=== PATIENT | male | born 1950 | race Caucasian/White ===

== ENCOUNTER → 2016-05-14 | Outpatient (CLI) | payer BC ==
--- NOTE | 2016-05-14 20:21 | CONS ---
DATE: 05/14/2016 CONSULTATION/NEW PATIENT EVALUATION HISTORY OF PRESENT ILLNESS/SLEEP-WAKE EVALUATION: A 65-year-old gentleman who has been evaluated in the sleep center for obstructive sleep apnea/hypopnea syndrome. Patient had been diagnosed with obstructive sleep apnea about 10 years ago. At that time, he was started on treatment with BiPAP, but was not able to use equipment secondary to difficulties to tolerate the pressure and discomfort with the mask. He stopped using equipment very quickly after starting it. SLEEP SCHEDULE: At the present time, his sleep schedule is usually from 1:00 a.m. to 2:00 a.m. until 10:00 a.m. or 11:00 a.m. FALLING ASLEEP: Sometimes he has problems falling asleep. No TV in bedroom, though. DURING SLEEP: He sleeps usually on the side position. During the sleep, he has loud snoring, episodes of heartburn, restless legs. He wakes up from sleep up to 3 times with nocturia. Several times he strikes his forehead with his right hand. DURING THE DAY/WAKE STATE: During the day, he may take naps up to 1 time at 6:00 p.m. or 7:00 a.m. [place] Sleepiness Scale is significantly increased to 16. PAST MEDICAL HISTORY: Positive for recently diagnosed with multiple sclerosis, hypertension, allergy, hyperlipidemia, acid reflux, depression, anxiety and peripheral neuropathy. PAST SURGICAL HISTORY: Tonsillectomy, back surgery, uvulectomy and surgery on soft palate, surgery for nasal septum deviation. MEDICATIONS: 1. Aspirin. 2. Benadryl. 3. Cyclobenzaprine. 4. Flomax. 5. Lipitor. 6. Lisinopril. 7. Lunesta. 8. [place]. 9. Omeprazole. 10. Senna. 11. Xanax. SOCIAL HISTORY: Positive for smoking less than 1 pack a day for about 50 years. Patient continues smoking. Alcohol consumption rarely. REVIEW OF SYSTEMS: Awakenings from sleep, sleepiness, snoring. FAMILY HISTORY: Hypertension, heart problems, hyperlipidemia, arthritis, sinus headaches, bronchitis, sleep apnea, snoring, pneumonia, headaches, cancer, insomnia, acid reflux, ulcers, anemia, restless legs. PHYSICAL EXAMINATION: GENERAL: A 65-year-old gentleman without distress. VITAL SIGNS: BP 123/71, HR 76, RR 16. Height 5 feet 9 inches. Weight 156. BMI 23.0. Neck 15 inches in circumference. Temperature 97.8. Oxygen saturation at room air 99%. HEENT: PERRADALID, EOMI. Evaluation of oropharynx showed tongue protrudes midline, white pillars. No uvula. Moderately low position of soft palate. Slight restriction of nasal breathing. NECK: Supple. No JVD. Thyroid is not palpable. LUNGS: Clear to percussion and to auscultation. Good air exchange. No wheezing or rhonchi. HEART: S1, S2 regular. No murmurs, gallops or rubs. ABDOMEN: Soft and nontender. Bowel sounds are present. No organomegaly appreciated. EXTREMITIES: No clubbing or cyanosis. ETL DATA ARCHITECT: Awake, alert, and oriented x3. Cranial nerves 2 to 7 intact. There is no fasciculation or atrophy noted. Feeling of numbness when I am touching hip areas on the legs. Slight weakness in hands bilaterally. IMPRESSION: 1. Snoring, small oropharyngeal air space, history of obstructive sleep apnea-hypopnea syndrome in the past, sleepiness, obstructive sleep apnea-hypopnea syndrome. 2. Normal body mass index at the present time. Patient lost around 25 pounds since 10 years ago was evaluated in the sleep center. 3. Multiple sclerosis recently diagnosed. 4. Hypertension. 5. Hyperlipidemia. 6. Allergies. 7. Acid reflux. 8. Depression. 9. Anxiety. 10. Peripheral neuropathy. 11. Status post tonsillectomy. 12. Status post uvulectomy and surgery on the soft palate. 13. Status post nasal surgery for nasal septum deviation. 14. Status post back surgery. 15. Patient is a smoker for less than 50 pack years, continues to smoke. 16. Some episodes of hitting his head with his right arm, possibly rapid eye movement sleep behavioral disorder. 17. Differential diagnoses include sleepiness secondary to hypersomnia because narcolepsy could be secondary to multiple sclerosis lesion. PLAN: 1. Polysomnography for evaluation of patient's breathing during sleep, also to check for possible movements during sleep to rule out REM sleep behavioral disorder. 2. CPAP/BiPAP titration if sleep study confirms obstructive sleep apnea-hypopnea syndrome. 3. Preferable position during sleep on the side. 4. No driving if patient feels any sleepiness. Patient is aware of civil and criminal liability for unsafe driving. 5. I will see patient for follow-up visit to explain results of the testing and following plan. 6. Patient could be a candidate for multiple sleep latency test for objective evaluation of his symptoms of excessive daytime sleepiness. Sincerely, Jeferson Sherwood MD, PhD, FAASM. Diplomat of [employer], Sleep Medicine Board by [employer] Office Employee of [facility] [place]
== END | disposition home or self-care (01) ==
LOC: SLEEP 15:47
PROVIDERS: ATTEND Internal Medicine
DX: G47.33 Obstructive sleep apnea (adult) (pediatric) (principal); G35 Multiple sclerosis; I10 Essential (primary) hypertension; E78.5 Hyperlipidemia, unspecified; K21.9 Gastro-esophageal reflux disease without esophagitis; F32.9 Major depressive disorder, single episode, unspecified; F41.9 Anxiety disorder, unspecified; G47.10 Hypersomnia, unspecified; G62.9 Polyneuropathy, unspecified; T78.40XA Allergy, unspecified, initial encounter; F17.200 Nicotine dependence, unspecified, uncomplicated; Z79.82 Long term (current) use of aspirin; Z79.899 Other long term (current) drug therapy
CPT/HCPCS: 99211

== ENCOUNTER → 2016-10-08 | Outpatient (CLI) | payer BC ==
--- NOTE | 2016-10-15 11:38 | PN ---
DATE OF SERVICE: 10/08/2016 A 66-year-old gentleman who has been followed in the Sleep Center for treatment of obstructive sleep apnea-hypopnea syndrome. Recently patient had diagnostic sleep study and CPAP with BiPAP titration. I discussed results of the sleep studies with patient in detail. He has severe obstructive sleep apnea-hypopnea syndrome with apnea-hypopnea index 30.8 and severe periodic limb movements during both sleep studies. During diagnostic sleep study it was 57.7 per hour and during titration of 118.5 per hour. Oxygen desaturated to 84%. Patient was started on treatment with Auto PAP with a pressure range of 5 to 15 cm of water. Patient brought his new machine with him and I checked it. Average pressure 11.7 cm of water. Usage of 30 out 30 nights for more than 4 hours. Average 7.9 hours per night. Apnea-hypopnea index in normal range 4.4. Patient continued to have symptoms of some sleepiness. [place] sleepiness scale is 14. Some numbness in low leg. MEDICATIONS: Lunesta, Flexeril, Cyclobenzaprine, Flomax, Lipitor, lisinopril, [place], omeprazole, Senna, Xanax, Motrin. During physical exam 66-year-old gentleman without distress. BP 119/67, HR 79, RR 16, height 69, weight 155.2, BMI 22.5, temperature 97.9, oxygen saturation at room air 99% at room air. Some numbness in the low leg. ( ) IMPRESSION: 1. Obstructive sleep apnea-hypopnea syndrome in the severe range, mostly on control in Auto PAP. Average pressure 11.7. Patient demonstrated 100% compliance with treatment. 2. Periodic limb movements with significant range have been documented. 3. Hypertension. 4. Multiple sclerosis. 5. Acid reflux. 6. Depression. 7. Anxiety. 8. Peripheral neuropathy. 9. Allergies. 10. Status post surgical treatment of nasal septum deviation. 11. Status post UPP. 12. Status post back surgery. 13. Patient is a smoker for 50-pack years. Continue smoking. PLAN: 1. Continue treatment with Auto PAP every night for the whole night. 2. Will consider treatment with dopamine agonist for periodic limb movements. 3. Sleep hygiene with regular time in bed for at least 8 hours. 4. No driving if feeling any sleepiness. [facility]
== END | disposition home or self-care (01) ==
LOC: SLEEP 13:13
PROVIDERS: ATTEND Internal Medicine
DX: G47.33 Obstructive sleep apnea (adult) (pediatric) (principal); G35 Multiple sclerosis; G47.61 Periodic limb movement disorder; I10 Essential (primary) hypertension; K21.9 Gastro-esophageal reflux disease without esophagitis; F32.9 Major depressive disorder, single episode, unspecified; F41.9 Anxiety disorder, unspecified; G62.9 Polyneuropathy, unspecified; T78.40XA Allergy, unspecified, initial encounter

== ENCOUNTER → 2017-03-03 | Outpatient (CLI) | payer BC ==
[2017-03-03 13:50] LABS: Glucose,CSF 65 mg/dL (40-70)
[2017-03-03 15:29] LABS: Appearance,CSF Clear
[2017-03-03 15:30] LABS: Red Blood Cell, CSF Crenated 80 %; Red Blood Cell, CSF Fresh 20 %
[2017-03-08 14:05] LABS: Immunoglobulin G 761 mg/dL (700 - 1600)
== END | disposition home or self-care (01) ==
LOC: LABWHC1 12:22
PROVIDERS: ATTEND Psychiatry & Neurology Neurology
DX: G35 Multiple sclerosis (principal)
CPT/HCPCS: 36415; 82040; 82042; 82784; 82945; 83916; 84157; 87070; 87205; 89050

== ENCOUNTER → 2017-10-07 | Outpatient (CLI) | payer BC, MEDICARE ==
--- NOTE | 2017-10-07 16:15 | PN ---
PROGRESS NOTE DATE OF SERVICE: 10/07/2017 57-year-old gentleman who has been followed in the Sleep Center for treatment of obstructive sleep apnea-hypopnea syndrome. Patient has successfully continued to use his CPAP equipment every night without significant problems. No snoring with the machine. [place] Sleepiness Scale slightly increased to 12. The patient tired today after trip with kind of excursion to [place]. I checked his CPAP unit. CPAP pressure is on automatic regimen 5-15 cm of water. Pressure is 12 cm of water. Leak is 6 L/minute which is perfect. Apnea-hypopnea index 5.3, which is borderline. Total apnea index 3.8, central apnea index 1.4. MEDICATIONS: Lunesta, Flexeril, Cyclobenzaprine, Flomax, Lipitor, [place], omeprazole, Senna, Xanax, Motrin. PHYSICAL EXAM: Patient in no distress. BP 130/72, HR 84, RR 16, height 5 feet 8-1/2 inches, weight 146.8, BMI 21.8, temperature 97.9. Oxygen saturation on room air 97%. HEENT: Oropharynx low position of soft palate. Neck Supple, no JVD. Thyroid is not palpable. LUNGS Clear to percussion and to auscultation. Good air exchange. Lower part on the right lung, few wheezes. HEART S1, S2 regular. No murmurs, gallops, or rubs. ABDOMEN Soft and nontender. Bowel sounds are present. No organomegaly appreciated. EXTREMITIES No clubbing or cyanosis. CHAIN SPLITTER Awake, alert, and oriented X3. Cranial nerves 2 to 7 intact. There is no fasciculation or atrophy. noted. No focal deficits observed. IMPRESSION: 1. Obstructive sleep apnea-hypopnea syndrome on control with CPAP. The patient demonstrated great compliance with treatment benefitting from treatment. 2. History of hypertension. 3. Smoker for more than 50 pack years. Few wheezes in the lungs, possible chronic obstructive pulmonary disease. 4. Hypertension. 5. History of multiple sclerosis. 6. History of peripheral neuropathy. 7. Anxiety. 8. Allergy. 9. Status post surgical treatment for nasal septum deviation. 10.Status post uvulopalatopharyngoplasty. 11.Status post back surgery. PLAN: 1. Continue treatment with CPAP every night. 2. Sleep hygiene with regular time bed for at least 8 hours. 3. No driving if feeling sleepiness. 4. Prescription for all necessary CPAP supplies including mask, tube, filters. 5. I have I talked to the patient about necessity to think about stop smoking. Thank you very much for allowing me to participate in management of your patient. Sincerely, Jeferson Sherwood MD, PhD, FAASM Diplomat of [employer] [employer] [employer] Bsw of [facility] [place] MMODL / [place]: [id number] /
== END | disposition home or self-care (01) ==
LOC: SLEEP 13:35
PROVIDERS: ATTEND Internal Medicine
DX: G47.33 Obstructive sleep apnea (adult) (pediatric) (principal); I10 Essential (primary) hypertension; F41.9 Anxiety disorder, unspecified; T78.40XA Allergy, unspecified, initial encounter; F17.200 Nicotine dependence, unspecified, uncomplicated; Z86.69 Personal history of other diseases of the nervous system and sense organs; Z79.899 Other long term (current) drug therapy; Z79.891 Long term (current) use of opiate analgesic; Z79.1 Long term (current) use of non-steroidal anti-inflammatories (NSAID); Z99.89 Dependence on other enabling machines and devices; Z98.890 Other specified postprocedural states

== ENCOUNTER → 2018-11-10 | Outpatient (CLI) | payer BC, MEDICARE ==
--- NOTE | 2018-11-10 16:30 | PN ---
PROGRESS NOTE DATE OF SERVICE: 11/10/2018 This patient is a 68-year-old gentleman who has been followed in Sleep Center for treatment of obstructive sleep apnea-hypopnea syndrome. The patient successfully continues to use his CPAP equipment every night for the whole night without significant problems, except once he found that his machine did not correctly assess the time when used it. He is getting all CPAP supplies on time without problems. [place] Sleepiness Scale today is 10. I checked his CPAP unit. Range of the pressure is from 5 to 15 with average pressure 12 cm of water. Usage is 100% of the time, 30/30 nights for more than 4 hours, with average usage 8.4 hours per night. Leak is 0 L/minute. Apnea-hypopnea index is 4.6, which is within normal range, for the last month. For the last year, leak was also 0 L/minute and apnea-hypopnea index 5.9, which is acceptable. MEDICATIONS: 1. Lunesta. 2. Flexeril. 3. Cyclobenzaprine. 4. Flomax. 5. Lipitor. 6. [place]. 7. Omeprazole. 8. Senna. 9. Xanax. 10.Motrin. PHYSICAL EXAMINATION: GENERAL: A pleasant patient in no distress. VITAL SIGNS: BP 137/72, HR 90, RR 16, height 5 feet 8-1/2 inches, weight 145 pounds, which is about 2 pounds less than during the last visit. Body mass index 21.8. Temperature 97.9. Oxygen saturation at room air 97%. HEENT: PERRLA, EOMI. Evaluation of oropharynx showed tongue protrudes midline. Low position of soft palate. NECK: Supple. No JVD. Thyroid is not palpable. Neck measures 14-1/2 inches in circumference. LUNGS: Clear to percussion and to auscultation. Good air exchange. No wheezing or rhonchi. HEART: S1, S2 regular. No murmurs, gallops or rubs. ABDOMEN: Soft. No tenderness. EXTREMITIES: No clubbing or cyanosis. INTERIOR DESIGN PROFESSOR: Awake, alert, and oriented X3. Cranial nerves 2 to 7 intact. There is no fasciculation or atrophy. noted. No focal deficits observed. IMPRESSION: 1. Obstructive sleep apnea-hypopnea syndrome. The patient has demonstrated great compliance with treatment, benefitting from treatment. 2. Smoker for more than 50 pack/years. Continues to smoke. 3. History of multiple sclerosis. 4. Peripheral neuropathy. 5. History of anxiety. 6. History of allergies. 7. History of hypertension. Recently normal level of blood pressure. Not on any medications for hypertension anymore. 8. Status post UPPP. 9. Status post back surgery. 10.Status post surgical treatment of nasal septum deviation in the past. PLAN: 1. Patient will continue to use CPAP equipment every night for the whole night. 2. Prescriptions for all necessary CPAP supplies, including mask, tube, filters. 3. Sleep hygiene with regular time in bed for at least 7-1/2 to 8 hours. 4. No driving if feeling any sleepiness. 5. We will check how old the patient's CPAP unit is. We will consider replacing CPAP unit after 5 years of usage. 6. Follow-up visit in one year, or earlier if the patient has any problems. Thank you very much for allowing me to participate in the management of your patient. Sincerely, Jeferson Sherwood MD, PhD, FAASM Diplomat of [place] [employer] [place] [employer] [place] Counselor of [facility] [place] MMODL / IJN: [id number] /
== END | disposition home or self-care (01) ==

== ENCOUNTER → 2019-03-31 | Outpatient (CLI) | payer BC, MEDICARE ==
--- NOTE | 2019-04-02 15:45 | MR ---
EXAMINATION TYPE: MR thoracic spine wo/w con DATE OF EXAM: 03/31/2019 COMPARISON: NONE HISTORY: RECHECK FOR MS TECHNIQUE: Multiplanar, multisequence imaging of thoracic spine is performed without and with IV cont rast, patient injected with 7.5 cc of gadavist. Demyelinating disease protocol. FINDINGS: Spinal cord shows normal caliber and signal as it courses the thoracic spine. Vertebral b antonio heights are satisfactory. Coronal images show levoconvex scoliosis centered upper to mid thoracic spine. Sagittal images show exaggerated thoracic kyphosis with prominent upper levels. There is mild to moderate multilevel anterior spurring. Small hemangioma noted anterior-inferior T11 vertebra sagi ttal image 7. This space heights maintained. Posterior disc herniation is seen effacing the anterior thecal sac sagittal image 8 at T7-T8 level. No suspicious enhancement is present. Review of the axial images confirms right paracentral disc protrusion effacing anterolateral thecal s ac at T7-T8 along with tiny central disc protrusion effacing the anterior thecal sac at T9-T10 level confirm sagittal image 7. No additional disc herniations are evident. Spinal cord shows no abnormal s ignal or enhancement. Incidental 5 mm simple appearing thin-walled cyst posterior left kidney axial i mage 1 series 701. IMPRESSION: Scoliotic curvature and multilevel degenerative changes as detailed above. No evidence fo r demyelinating disease involvement in the thoracic spinal cord.
== END | disposition home or self-care (01) ==
LOC: RADMRIMAIN 16:12
PROVIDERS: ATTEND Psychiatry & Neurology Neurology
DX: M51.24 Other intervertebral disc displacement, thoracic region (principal); M41.84 Other forms of scoliosis, thoracic region; G35 Multiple sclerosis
CPT/HCPCS: 72157; A9585

== ENCOUNTER → 2019-04-03 | Outpatient (CLI) | payer BC, MEDICARE ==
--- NOTE | 2019-04-03 17:10 | MR ---
EXAMINATION TYPE: MR brain/cspine wo/w DATE OF EXAM: 04/03/2019 COMPARISON: Prior brain and cervical spine MRI dated 02/21/2018 HISTORY: multiple sclerosis TECHNIQUE: Multiplanar, multisequence images of the brain and brainstem, cervical spine is performed without and with IV contrast, utilizing 7.5 mL intravenous Gadavist . FINDINGS: Diffusion weighted images demonstrate no evidence of a recent infarct or other diffusion ab normality. There is no extra-axial fluid collection or significant interval change in white matter s ignal abnormality. The ventricular system and cisternal spaces are normal in size and appearance. T he brain volume is age appropriate. Midline structures demonstrate normal morphology. The craniocervical junction appears within normal limits. Post contrast images demonstrate no abnormal enhancement. The dural venous sinuses appear pa tent. The visualized sinuses are clear and the globes are intact. IMPRESSION: Extensive white matter signal changes are again noted as on prior. Cervical spine MRI: The cervical cord signal which is increased on T2-weighted sequences at C3 is aga in noted, no additional signal abnormalities identified within the cervical cord. Underlying degenera tive disc changes within the cervical spine are again seen. There is multilevel foraminal encroachmen t. No significant spinal stenosis. No abnormal enhancement following contrast menstruation. IMPRESSION: Stable cord plaque as described.
== END | disposition home or self-care (01) ==
LOC: RADMRIMAIN 14:19
PROVIDERS: ATTEND Psychiatry & Neurology Neurology
DX: G95.89 Other specified diseases of spinal cord (principal); R90.82 White matter disease, unspecified; G35 Multiple sclerosis
CPT/HCPCS: 70553; 72156; A9585

== ENCOUNTER → 2019-09-28 | Outpatient (CLI) | payer BC, MEDICARE ==
--- NOTE | 2019-09-28 11:54 | ECHOF ---
Referral Reason:R22.43 bilateral leg edema MEASUREMENTS -------- HEIGHT: 180.3 cm WEIGHT: 70.3 kg BP: IVSd: 0.9 cm (0.6 - 1.1) LVIDd: 4.0 cm (3.9 - 5.3) LVPWd: 0.9 cm (0.6 - 1.1) IVSs: 1.5 cm LVIDs: 1.8 cm LVPWs: 1.5 cm Ao Diam: 2.8 cm (2.0 - 3.7) AV Cusp: 2.0 cm (1.5 - 2.6) LA Diam: 3.1 cm (2.7 - 3.8) MV EXCURSION: 14.414 mm (> 18.000) MV EF SLOPE: 115 mm/s (70 - 150) EPSS: 0.7 cm MV E Gerry: 0.55 m/s MV DecT: 192 ms MV A Gerry: 1.02 m/s MV E/A Ratio: 0.54 RAP: 5.00 mmHg RVSP: 33.32 mmHg FINDINGS -------- Sinus rhythm. This was a technically good study. The left ventricular size is normal. There is mild concentric left ventricular hypertrophy. Overa ll left ventricular systolic function is normal with, an EF between 55 - 60 %. The right ventricle is normal in size. The left atrial size is normal. The right atrial size is normal. The aortic valve is trileaflet and appears structurally normal. The mitral valve is normal. Mild mitral regurgitation is present. The tricuspid valve appears structurally normal. Mild tricuspid regurgitation present. Right vent ricular systolic pressure is normal at < 35 mmHg. There is no pulmonic regurgitation present. The aortic root size is normal. Normal inferior vena cava with normal inspiratory collapse consistent with estimated right atrial pre ssure of 5 mmHg. There is no pericardial effusion. CONCLUSIONS -------- 1. Sinus rhythm. 2. This was a technically good study. 3. The left ventricular size is normal. 4. There is mild concentric left ventricular hypertrophy. 5. Overall left ventricular systolic function is normal with, an EF between 55 - 60 %. 6. The right ventricle is normal in size. 7. The left atrial size is normal. 8. The right atrial size is normal. 9. The aortic valve is trileaflet and appears structurally normal. 10. The mitral valve is normal. 11. Mild mitral regurgitation is present. 12. The tricuspid valve appears structurally normal. 13. Mild tricuspid regurgitation present. 14. Right ventricular systolic pressure is normal at < 35 mmHg. 15. There is no pulmonic regurgitation present. 16. The aortic root size is normal. 17. Normal inferior vena cava with normal inspiratory collapse consistent with estimated right atrial pressure of 5 mmHg. 18. There is no pericardial effusion. FILTER CLEANER: Paula Anders RDCS
== END | disposition home or self-care (01) ==
LOC: RADECHMAIN 11:31
PROVIDERS: ATTEND Internal Medicine
DX: I08.1 Rheumatic disorders of both mitral and tricuspid valves (principal)
CPT/HCPCS: 93306

== ENCOUNTER → 2020-03-23 | Outpatient (CLI) | payer BC, MEDICARE ==
--- NOTE | 2020-03-23 10:47 | MR ---
EXAMINATION TYPE: MR brain/cspine wo/w DATE OF EXAM: 03/23/2020 COMPARISON: 04/03/2019 HISTORY: MS CONTRAST: Performed utilizing 7 mL intravenous Gadavist gadolinium contrast. TECHNIQUE: Multiplanar, multisequence imaging of the brain is performed on a 3.0 Kelli magnet. Demye linating disease protocol with additional Sagittal Flair sequence is performed. Study is performed wi thin 24 hours of arrival to the hospital. FINDINGS: T2 White Matter Lesions Present : Yes Approximate Number of Lesions: Multiple scattered Locations Identified : Periventricular, centrum semiovale, subcortical, right cerebellar peduncle Reference lesions: 0.4 cm right cerebellar peduncle. Series 1301 image 9 0.9 x 1.6 x 1.7 cm. Left Frontal lobe centrum semiovale. Series 1301, image 21, series 1401, image 14 . 0.7 x 0.9 x 0.7 cm. Right centrum semiovale periventricular. Series 1301 image 22, series 1401 image 24. Enhancing Lesion(s) Present: No Change from Prior: Stable Diffusion-weighted imaging is performed. No abnormal hyperintensity is present to suggest an acute i ntracranial infarct or acute ischemic change. Ventricles and sulci are appropriate for the patient age. There are no abnormal extra-axial fluid collections. The ventricular system and cisternal spaces are normal in size and appearance. The brain volume is age appropriate. The craniocervical junction thelma ears within normal limits. The dural venous sinuses appear patent. No abnormal enhancement is present on post contrast images. . The visualized sinuses are clear. Visu alized orbits are unremarkable. IMPRESSION: 1. Extensive white matter plaques present similar to the prior year. Findings are compatible with mu ltiple sclerosis in proper clinical setting. EXAMINATION TYPE: MR brain/cspine wo/w DATE OF EXAM: 03/23/2020 COMPARISON: 04/03/2019 HISTORY: MS CONTRAST: Performed utilizing 7 mL intravenous Gadavist gadolinium contrast. TECHNIQUE: Multiplanar multiecho imaging on a 3.0 Kelli magnet is performed through the cervical spin e. FINDINGS: The craniovertebral junction is normal. Vertebral body alignment is normal. There is a 1.1 x 0.3 cm posterior spinal cord plaque posterior to the C3-4 level this was present pre viously. Some mild increased signal may be within the posterior spinal cord posterior to C6 level. Th is appears to been present previously. There is mild increased signal posterior to the dens on the T2 sagittal images. This measures 0.8 cm. These findings can be related to multiple sclerosis. C7-T1: No focal disc herniation or significant disc bulge is evident. No spinal canal stenosis or n eural foraminal stenosis is present. C6-7: Is a grade 1 spondylolisthesis of C7 anterior and T1. Minimal disc uncovering is present.. C5-6: Mild disc bulging is present with anterior thecal sac contact. There is loss of disc height thr ough this level. No spinal canal stenosis is present. C4-5: Minimal grade 1 spondylolisthesis is present. There is some central disc herniation extending p osterior to the C4 level. This appears to be central and subligamentous. Mild anterior thecal sac com pression is present. C3-4: Central disc bulging is present with mild anterior thecal sac compression. No AP spinal canal s tenosis is present.. C2-3: No focal disc herniation or significant disc bulge is evident. No spinal canal stenosis or tung ral foraminal stenosis is present. IMPRESSIONS: 1. Mild increased signal within the posterior spinal cord at the C3 level, C6 level and posterior to C2. Findings appear stable. Findings can be compatible with multiple sclerosis in the proper clinical setting.
== END | disposition home or self-care (01) ==
LOC: RADMRIMAIN 08:53
PROVIDERS: ATTEND Psychiatry & Neurology Neurology
DX: R90.82 White matter disease, unspecified (principal); R90.89 Other abnormal findings on diagnostic imaging of central nervous system; G35 Multiple sclerosis
CPT/HCPCS: 70553; 72156; A9585

== ENCOUNTER → 2020-09-12 | Outpatient (CLI) | payer BC, MEDICARE ==
--- NOTE | 2020-09-12 22:55 | SFUN ---
SLEEP CENTER FOLLOW UP NOTE DATE OF SERVICE: 09/12/2020 70-year-old gentleman have been followed in [facility] for treatment of obstructive sleep apnea and restless legs syndrome. Patient continued to use his CPAP equipment every night but recently has some problems related to the mask, leak from the mask. He is on treatment with Mirapex for restless leg symptoms and on the periodic limb movements and question about the sleep . I checked CPAP unit. Range of the pressure 5-15, average pressure 13.4. Usage is 30/30 nights for more than 4 hours, average 8.7 hours per night. Leak is 40 L/minute. Apnea- hypopnea index reading 14.4, which is high. Patient using Simplus medium size fullface mask. MEDICATIONS: Aspirin 325 mg once a day. Benadryl 25 mg once a day, cyclobenzaprine 10 mg once a day, tamsulosin 0.4 mg capsules extended release 1-2 capsules by mouth once a day, Lipitor 40 mg once a day, lisinopril 20 mg once a day. Lunesta 3 mg once a day at bedtime, [place] 7.5/325 mg tablets, omeprazole 20 mg capsules daily, released twice a day, Senna laxative 8.6 mg tablets twice a day, Xanax 0.6 mg once a day, Flexeril 10 mg once a day. Potassium supplement, fish oil. PHYSICAL EXAM: gentleman in no distress. VITAL SIGNS: BP 133/81, HR 80, RR 15, height 5 feet 9 inches, weight 148 pounds, temperature 97.3, oxygen saturation at room air 99%. Oropharynx low position of soft palate. HEENT: PERRLA, EOMI, evaluation of oropharynx showed tongue protrudes midline. NECK: Supple, no JVD. Thyroid is not palpable. LUNGS: Clear to percussion and to auscultation. Good air exchange. No wheezing or rhonchi. HEART: S1, S2 regular. No murmurs, gallops, or rubs. ABDOMEN: Soft and nontender. Bowel sounds are present. No organomegaly appreciated. EXTREMITIES: No clubbing or cyanosis. [employer] BRAKE WORKER: Awake, alert, and oriented X3. Cranial nerves 2 to 7 intact. There is no fasciculation or atrophy. noted. No focal deficits observed. IMPRESSION: 1. Obstructive sleep apnea-hypopnea syndrome. Patient demonstrated great compliance with treatment benefitting from treatment, but apnea-hypopnea index reading from the machine is above normal range, significant leak present. 2. History of multiple sclerosis. 3. Peripheral neuropathy. 4. History of anxiety. 5. History of allergies. 6. History of hypertension in the past. 7. Status post uvulopalatopharyngoplasty. 8. Status post back surgery. 9. Status post surgical treatment of nasal septum deviation in the past. PLAN: 1. We will try nasal pillow mask. I wrote a prescription for AirFit P10 medium-size nasal pillow mask. 2. Simplus fullface mask, medium size, was adjusted for proper fitting. 3. Patient will continue to use PAP equipment every night for the whole night. 4. Sleep hygiene with regular time in bed for at least 7-1/2 to 8 hours. 5. Precautions related to driving. No driving if feeling sleepiness. 6. I will maintain all necessary prescription for PAP supplies including mask, tube, filters. 7. Watching weight. 8. Follow-up visit in 4 months or earlier if patient has any problems. 9. Prescription for Mirapex 0.125 mg 1-2 tablets at bedtime. Thank you very much for allowing me to participate in management of your patient. Sincerely, Jeferson Sherwood MD, PhD, FAASM Diplomat of [place] [employer] [place] [employer] of [facility] [place] [id number] / FLORIDAN: [id number] /
== END ==
LOC: SLEEP 11:28
PROVIDERS: ATTEND Internal Medicine
DX: G47.33 Obstructive sleep apnea (adult) (pediatric) (principal); Z86.69 Personal history of other diseases of the nervous system and sense organs; G62.9 Polyneuropathy, unspecified; F41.9 Anxiety disorder, unspecified; F17.200 Nicotine dependence, unspecified, uncomplicated; T78.40XA Allergy, unspecified, initial encounter; I10 Essential (primary) hypertension; Z98.1 Arthrodesis status; Z98.890 Other specified postprocedural states; Z79.899 Other long term (current) drug therapy; Z91.09 Other allergy status, other than to drugs and biological substances
CPT/HCPCS: 99211

== ENCOUNTER 2022-01-23 12:48 | Inpatient (IN) | payer BC, MEDICARE ==
--- NOTE | 2022-01-23 13:26 | ED ---
General Adult HPI - General Chief complaint: Fall Stated complaint: Fall Time Seen by Provider: 01/23/22 13:08 Source: patient, EMS, RN notes reviewed Limitations: no limitations - History of Present Illness Initial comments: Patient is a pleasant 71-year-old male presenting to the emergency department with concerns with left leg weakness. Onset was noticed yesterday morning. Last known well was approximately 36-40 hours ago now. Patient is having difficulty with ambulation. No other area of weakness. No visual change. No confusion or speech changes. No facial weakness or arm weakness. No loss of sensation. No history of similar symptoms previously. Patient had an episode this morning that was not witnessed. Patient became unresponsive with family arriving shortly after hearing his snoring respirations. Patient was unresponsive for a couple of minutes. Following this patient was confused for approximately an hour. When EMS arrived patient was fully alert and fully responsive and oriented. Patient has no complaints at this time and feels normal except for left leg weakness continues. This has been steady since he first noticed it yesterday morning when he woke. - Related Data Home Medications Medication Instructions Recorded Confirmed Atorvastatin Calcium [Lipitor] 40 mg PO HS 11/30/15 01/23/22 Ibuprofen [Motrin] 800 mg PO BID PRN 11/30/15 01/23/22 Omeprazole [PriLOSEC] 20 mg PO BID 11/30/15 01/23/22 Cyclobenzaprine [Flexeril] 10 mg PO HS 01/23/22 01/23/22 DULoxetine HCL [Cymbalta] 60 mg PO DAILY 01/23/22 01/23/22 Fluticasone Nasal [place] [Flonase 2 spray EA NOSTRIL DAILY 01/23/22 01/23/22 Nasal [place]] Furosemide [Lasix] 20 mg PO DAILY 01/23/22 01/23/22 HYDROcodone/APAP 10-325MG [[place] 1 tab PO BID PRN 01/23/22 01/23/22 10-325] Loratadine [Claritin] 10 mg PO DAILY 01/23/22 01/23/22 Potassium Chloride ER [K-Dur 10] 10 meq PO DAILY 01/23/22 01/23/22 Tamsulosin HCl [Flomax] 0.8 mg PO DAILY 01/23/22 01/23/22 Umeclidinium Brm/Vilanterol Tr 1 puff INHALATION RT-DAILY 01/23/22 01/23/22 [Anoro Ellipta 62.5-25 Mcg INH] Allergies Allergy/AdvReac Type Severity Reaction Status Date / Time environmental Allergy Intermediate Cough Uncoded 03/19/20 12:47 Review of Systems ROS Statement: Those systems with pertinent positive or pertinent negative responses have been documented in the HPI. ROS Other: All systems not noted in ROS Statement are negative. Constitutional: Denies: fever Eyes: Denies: eye pain ENT: Denies: ear pain Respiratory: Denies: cough Cardiovascular: Denies: chest pain Endocrine: Denies: fatigue Gastrointestinal: Denies: abdominal pain Genitourinary: Denies: dysuria Musculoskeletal: Denies: back pain Skin: Denies: rash Neurological: Reports: as per HPI, weakness. Denies: headache Past Medical History Past Medical History: GERD/Reflux, Hyperlipidemia, Hypertension, Sleep Apnea/CPAP/BIPAP Additional Past Medical History / Comment(s): sleep apnea multiple sclerosis History of Any Multi-Drug Resistant Organisms: None Reported Past Surgical History: Appendectomy, Back Surgery, Bowel Resection, Coronary Bypass/CABG, Hernia Repair, Orthopedic Surgery, Tonsillectomy Past Anesthesia/Blood Transfusion Reactions: No Reported Reaction Past Psychological History: No Psychological Hx Reported Smoking Status: Current every day smoker General Exam Limitations: no limitations General appearance: alert, in no apparent distress Head exam: Present: atraumatic, normocephalic Eye exam: Present: normal appearance, PERRL, EOMI ENT exam: Present: normal oropharynx Neck exam: Present: normal inspection. Absent: tenderness Respiratory exam: Present: normal lung sounds bilaterally Cardiovascular Exam: Present: regular rate, normal rhythm GI/Abdominal exam: Present: soft. Absent: tenderness Extremities exam: Present: normal inspection. Absent: tenderness Neurological exam: Present: alert, oriented X3, CN II-XII intact Expanded Neurological exam: Present: protecting the airway Patient oriented to: Present: person, place, time Speech: Present: fluid speech Cranial nerves: EOM's Intact: Normal Sensory exam: Upper Extremity Light Touch: Normal, Lower Extremity Light Touch: Normal Motor strength exam: RUE: 5, LUE: 5, RLE: 5, LLE: 3 Eye Response: (4) open spontaneously Motor Response: (6) obeys commands Verbal Response: (5) oriented Psychiatric exam: Present: normal affect, normal mood Skin exam: Present: normal color Course Vital Signs 01/23/22 12:55 Temperature 99.8 F H Pulse Rate 90 Respiratory 16 Rate Blood Pressure 153/84 O2 Sat by Pulse 95 Oximetry - Reevaluation(s) Reevaluation #1: 01/23/22 15:46 Call received from radiologist with concern for small subdural and hematoma. I did discuss the case with Dr. Chapman, who will review the films and call back. 01/23/22 16:[address] Chapman who was unable to view the films. They're being loaded up into the stroke robot. 01/23/22 17:12 Case again discussed with Dr. Chapman who recommends repeat head CT at 4 hours. He states if no increase in bleeding patient to be admitted here. Call before considering transfer 01/23/22 20:03 CT scanning unchanged. Case discussed with practitioner Radha who did recheck O2 admitting physician and is okay with admission. EKG Findings - EKG Comments: EKG Findings:: Sinus rhythm rate 77. OH 168. QRS 103. QT 352. QTC 34. Normal axis. Borderline inferior Q waves. No acute ST change. Medical Decision Making - Lab Data Result diagrams: 01/23/22 12:58 01/23/22 12:58 Lab Results 01/23/22 01/23/22 01/23/22 Range/Units 12:58 12:58 12:58 WBC 13.0 H (3.8-10.6) k/uL RBC 4.31 (4.30-5.90) m/uL Hgb 14.2 (13.0-17.5) gm/dL Hct 40.6 (39.0-53.0) % MCV 94.2 (80.0-100.0) fL MCH 32.9 (25.0-35.0) pg MCHC 34.9 (31.0-37.0) g/dL RDW 12.7 (11.5-15.5) % Plt Count 174 (150-450) k/uL MPV 7.4 Neutrophils % 85 % Lymphocytes % 6 % Monocytes % 7 % Eosinophils % 1 % Basophils % 0 % Neutrophils # 11.1 H (1.3-7.7) k/uL Lymphocytes # 0.8 L (1.0-4.8) k/uL Monocytes # 0.9 (0-1.0) k/uL Eosinophils # 0.1 (0-0.7) k/uL Basophils # 0.1 (0-0.2) k/uL PT 10.1 (9.0-12.0) sec INR 0.9 (<1.2) APTT 25.0 (22.0-30.0) sec Sodium 129 L (137-145) mmol/L Potassium 3.7 (3.5-5.1) mmol/L Chloride 97 L (98-107) mmol/L Carbon Dioxide 24 (22-30) mmol/L Anion Gap 8 mmol/L BUN 11 (9-20) mg/dL Creatinine 0.61 L (0.66-1.25) mg/dL Est GFR (CKD-EPI)AfAm >90 (>60 ml/min/1.73 sqM) Est GFR (CKD-EPI)NonAf >90 (>60 ml/min/1.73 sqM) Glucose 115 H (74-99) mg/dL Calcium 10.4 H (8.4-10.2) mg/dL Magnesium 1.7 (1.6-2.3) mg/dL Total Bilirubin 1.0 (0.2-1.3) mg/dL AST 17 (17-59) U/L ALT 15 (4-49) U/L Alkaline Phosphatase 124 (38-126) U/L Troponin I (0.000-0.034) ng/mL Total Protein 6.3 (6.3-8.2) g/dL Albumin 3.8 (3.5-5.0) g/dL Coronavirus (PCR) (Not Detectd) Influenza Type A RNA (Not Detectd) Influenza Type B (PCR) (Not Detectd) 01/23/22 01/23/22 01/23/22 Range/Units 12:58 14:59 14:59 WBC (3.8-10.6) k/uL RBC (4.30-5.90) m/uL Hgb (13.0-17.5) gm/dL Hct (39.0-53.0) % MCV (80.0-100.0) fL MCH (25.0-35.0) pg MCHC (31.0-37.0) g/dL RDW (11.5-15.5) % Plt Count (150-450) k/uL MPV Neutrophils % % Lymphocytes % % Monocytes % % Eosinophils % % Basophils % % Neutrophils # (1.3-7.7) k/uL Lymphocytes # (1.0-4.8) k/uL Monocytes # (0-1.0) k/uL Eosinophils # (0-0.7) k/uL Basophils # (0-0.2) k/uL PT (9.0-12.0) sec INR (<1.2) APTT (22.0-30.0) sec Sodium (137-145) mmol/L Potassium (3.5-5.1) mmol/L Chloride (98-107) mmol/L Carbon Dioxide (22-30) mmol/L Anion Gap mmol/L BUN (9-20) mg/dL Creatinine (0.66-1.25) mg/dL Est GFR (CKD-EPI)AfAm (>60 ml/min/1.73 sqM) Est GFR (CKD-EPI)NonAf (>60 ml/min/1.73 sqM) Glucose (74-99) mg/dL Calcium (8.4-10.2) mg/dL Magnesium (1.6-2.3) mg/dL Total Bilirubin (0.2-1.3) mg/dL AST (17-59) U/L ALT (4-49) U/L Alkaline Phosphatase (38-126) U/L Troponin I <0.012 (0.000-0.034) ng/mL Total Protein (6.3-8.2) g/dL Albumin (3.5-5.0) g/dL Coronavirus (PCR) Not Detected (Not Detectd) Influenza Type A RNA Not Detected (Not Detectd) Influenza Type B (PCR) Not Detected (Not Detectd) - Radiology Data Radiology results: report reviewed (CT brain and CT angios shows 3 mm subdural right cerebral convexity. Trace subdural hematoma anterior falx. 5 mm cortical contusion anterior right frontal lobe.), image reviewed (Chest x-ray shows possible scarring. Possible interstitial change. Possible atelectasis.) Critical Care Time Critical Care Time: Yes Total Critical Care Time: 33 Disposition Clinical Impression: CVA (cerebral vascular accident), Unresponsive episode, Subdural hematoma, Cerebral contusion Disposition: ADMITTED IP TO THIS HOSP Is patient prescribed a controlled substance at d/c from ED?: No Referrals: Isrrael Arthur MD [Primary Care Provider] - 1-2 days Time of Disposition: 20:05
[2022-01-23 13:42] LABS: Basophils # (A) 0.1 k/uL (0-0.2); Basophils % (A) 0 %; Eosinophils # (A) 0.1 k/uL (0-0.7); Eosinophils % (A) 1 %; HCT 40.6 % (39.0-53.0); HGB 14.2 gm/dL (13.0-17.5); Lymphocytes # (A) 0.8 k/uL (1.0-4.8); Lymphocytes % (A) 6 %; MCH 32.9 pg (25.0-35.0); MCHC 34.9 g/dL (31.0-37.0); MCV 94.2 fL (80.0-100.0); Mean Platelet Volume 7.4; Monocytes # (A) 0.9 k/uL (0-1.0); Monocytes % (A) 7 %; Neutrophils # (A) 11.1 k/uL (1.3-7.7); Neutrophils % (A) 85 %; Platelet Count 174 k/uL (150-450); RBC 4.31 m/uL (4.30-5.90); RDW 12.7 % (11.5-15.5)
[2022-01-23 13:49] LABS: ALT 15 U/L (4-49); AST 17 U/L (17-59); African American GFR (CKD) >90 (>60 ml/min/1.73 sqM); Albumin 3.8 g/dL (3.5-5.0); Alkaline Phosphatase 124 U/L (38-126); Anion Gap 8 mmol/L; Blood Urea Nitrogen 11 mg/dL (9-20); Calcium 10.4 mg/dL (8.4-10.2); Carbon Dioxide 24 mmol/L (22-30); Chloride 97 mmol/L (98-107); Glucose 115 mg/dL (74-99); Magnesium 1.7 mg/dL (1.6-2.3); Non-African American GFR(CKD) >90 (>60 ml/min/1.73 sqM); Potassium 3.7 mmol/L (3.5-5.1); Sodium 129 mmol/L (137-145); Total Protein 6.3 g/dL (6.3-8.2)
[2022-01-23 14:09] LABS: INR 0.9 (<1.2); Prothrombin Time 10.1 sec (9.0-12.0)
--- NOTE | 2022-01-23 15:13 | CT ---
EXAMINATION TYPE: CT brain wo con DATE OF EXAM: 01/23/2022 COMPARISON: None HISTORY: Fall with LOC and confusion CT DLP: 1235.6 mGycm Automated exposure control for dose reduction was used. FINDINGS: The ventricles, basal cisterns and sulci over the convexities are within normal limits and there is n o mass effect or shift of midline structures. There is loss of the normal michaels-white differentiation and loss of the sulci over the convexities in the right temporal parietal region consistent with an acute infarct. MRI of the brain would be useful for further evaluation. There is a remote infarct infarct or ischemic demyelination in the left temporal parietal white matte r. There are remote lacunar infarcts in the right occipital lobe. There is no acute bleed or mass effect. The intraorbital contents appear normal and symmetric. The paranasal sinuses and mastoid air cells are well aerated. IMPRESSION: 1. SUSPECT ACUTE INFARCT IN THE RIGHT TEMPORAL PARIETAL REGION. MRI WOULD BE USEFUL FOR FURTHER EVALU ATION. 2. REMOTE LACUNAR INFARCTS IN THE RIGHT OCCIPITAL LOBE. 3. CHRONIC ISCHEMIC WHITE MATTER DEMYELINATION OR REMOTE WHITE MATTER INFARCT IN THE LEFT TEMPORAL PA RIETAL REGION. 4. NO ACUTE INTRA OR EXTRA-AXIAL HEMORRHAGE.
--- NOTE | 2022-01-23 15:45 | CT ---
EXAMINATION TYPE: CT angio head neck DATE OF EXAM: 01/23/2022 COMPARISON: Noncontrast CT same day HISTORY: 71 year old male Fall with LOC, confusion. Study had to be repeated due to faulty IV connect ion and leakage of contrast. TECHNIQUE: Contiguous axial scanning of the head and neck performed with IV Contrast, patient injecte d with 65 mL of Isovue 370. Delayed images through the kidneys were obtained. Coronal/sagittal recons tructions performed. CT DLP: 983.3 mGycm Automated exposure control for dose reduction was used. FINDINGS: Head: Dominant left vertebral artery. Both vertebral and basilar arteries are patent as is the remainder of the posterior circulation. Mild atherosclerotic calcifications throughout the carotid siphons without significant narrowing. The remainder of the anterior circulation is also patent. Review of the patient's noncontrast head CT performed earlier today shows a 3 mm subdural hematoma al jena the right lateral convexity, for example, axial image 45 and 34. Suspect trace subdural hematoma along the anterior falx as well, axial image 42. Tiny 5 mm cortical contusion right frontal lobe, axi al image 45. NECK: Conventional arch vessel branching anatomy. The right common carotid artery is patent. Mild atheroscl erotic calcification right carotid bulb with mild, less than 25% narrowing proximal right ICA by NASC ET criteria. Remainder of the right ICA is patent. Left common and left internal carotid arteries are widely patent. Visualized upper lungs shows underlying emphysema. There are septal lines as well that could reflect fluid overload state or interstitial scarring and can be correlated clinically. We note frothy secret ions filling the bronchus space Muriel on the right, partially visualized. IMPRESSION: HEAD: 1. TRACE 3 MM SUBDURAL HEMATOMA ALONG THE RIGHT CEREBRAL CONVEXITY. TRACE SUBDURAL HEMATOMA ALONG THE ANTERIOR FALX. 5 MM CORTICAL CONTUSION ANTERIOR RIGHT FRONTAL LOBE. These findings are noted from th e patient's noncontrast CT brain earlier today. Called and discussed with Dr. Klein in the ER at 3:35 PM. 2. No large vessel intracranial arterial occlusion, significant stenosis, or aneurysmal change. NECK: 3. No hemodynamically significant vertebral or carotid artery stenosis on either side. 4. Visualized lungs show COPD and either some fibrosis or septal lines from fluid overload state. Als o, note prominent secretions filling the bronchus basalis of the right lower lobe. This may place the patient at risk for aspiration.
--- NOTE | 2022-01-23 16:29 | XR ---
EXAMINATION TYPE: XR chest 1V DATE OF EXAM: 01/23/2022 COMPARISON: NONE HISTORY: Altered mental status, trauma TECHNIQUE: Single frontal view of the chest is obtained. FINDINGS: There is no focal air space opacity, pleural effusion, or pneumothorax seen. The cardiac silhouette size is within normal limits. Patient is rotated. There are overlying leads. Possible sub segmental basilar atelectatic change present on the right. Aorta is dense. There is spinal curvature. The osseous structures are intact. IMPRESSION: No acute process. There is likely some scarring, possibly interstitial changes within th e lungs, possible basilar atelectasis, follow-up is indicated
--- NOTE | 2022-01-23 19:22 | CT ---
EXAMINATION TYPE: CT brain wo con DATE OF EXAM: 01/23/2022 COMPARISON: Today HISTORY: Dr requesting four hour post scan re-evaluation of subdural hematoma CT DLP: 1261.4 mGycm Automated exposure control for dose reduction was used. Images of the brain obtained with no contrast. There is small linear area of high attenuation at the right temporal lobe convexity consistent with a cute subdural hemorrhage measuring up to 3 mm in thickness. This is not changed compared to exam 4 ho urs ago. No mass effect. There is some hypodensity in the white matter of both temporal parietal lobe s. No midline shift. Calvarium is intact. IMPRESSION: Small acute right-sided subdural acute hematoma without change. Chronic small vessel ischemia without change. No evidence of cerebral parenchymal hemorrhage.
[2022-01-23] MEDS: SODIUM CHLORIDE 0.9% 1,000 ML IV SCH (21:57)
--- NOTE | 2022-01-23 23:38 | P.HPIM ---
History of Present Illness H&P Date: 01/23/22 Chief Complaint: Fall Patient is a 71-year-old male with a known history of multiple sclerosis, hypertension, hyperlipidemia, obstructive sleep apnea, GERD and currently every day smoker, coronary disease with history of CABG and other multiple medical problems was brought to ER status post fall and unresponsiveness. To her patient was complaining of not able to move and leg weakness on the left side around 6:15 AM in the morning yesterday. Today morning patient's son heard a sound and went into see the patient was found on the floor. Patient was confused for about 30 to 45 minutes. No weakness or seizures. No bowel or bladder incontinence. EMS was called and by the time he became more alert and fully responsive and oriented. Currently patient is still having left leg weakness but able to move while in the bed. Denied any complaints of chest pain or shortness of breath. No fever no chills. No headache or dizziness or lightheadedness. CT head showed suspected acute infarct in the right temporal parietal lesion. MRI would be useful for future evaluation. Remote lacunar infarct in the right occipital lobe chronic ischemic white matter demyelination changes. No acute intra or extra-axial hemorrhage. CT angiogram head and neck showed trace 3 mm subdural hematoma along the right cerebral convexity. Trace subdural hematoma along the anterior falx 5 mm cortical contact fusion anterior right frontal lobe. Neck no hemodynamically significant vertebral or carotid artery stenosis. COPD and some fibrosis of cephalized from fluid overload state. Chest x-ray showed no acute process. There is likely some scarring Laboratory data showed WBC 13.0 hemoglobin 14.1 platelets 174 Sodium 129 potassium 3.7 chloride 97 BUN 11 creatinine 0.6 calcium 10.4 and liver enzymes are not elevated troponin x1 negative coronavirus PCR not detected. Review of Systems Constitutional: Patient denies any fever or chills . no Generalized weakness. Abdomen: Patient denied any nausea or vomiting or abd. pain Cardiovascular: Patient denies any chest pain or short of breath no palpitations. Respiratory: patient denied any cough . no sputum production. No shortness of breath Neurologic: Patient denied any numbness or tingling headache. Left leg weakness. Fall. Musculoskeletal: Patient denies any complaints of joint swelling or deformity. Skin: Negative Psychiatric: Negative Endocrine: No heat or cold intolerance. No recent weight gain. Genitourinary: No dysuria or hematuria. All other 14 point ROS negative except the above Past Medical History Past Medical History: GERD/Reflux, Hyperlipidemia, Hypertension, Sleep Apnea/CPAP/BIPAP Additional Past Medical History / Comment(s): sleep apnea multiple sclerosis History of Any Multi-Drug Resistant Organisms: None Reported Past Surgical History: Appendectomy, Back Surgery, Bowel Resection, Coronary Bypass/CABG, Hernia Repair, Orthopedic Surgery, Tonsillectomy Past Anesthesia/Blood Transfusion Reactions: No Reported Reaction Past Psychological History: No Psychological Hx Reported Smoking Status: Current every day smoker Medications and Allergies Home Medications Medication Instructions Recorded Confirmed Type Atorvastatin Calcium [Lipitor] 40 mg PO HS 11/30/15 01/23/22 History Ibuprofen [Motrin] 800 mg PO BID PRN 11/30/15 01/23/22 History Omeprazole [PriLOSEC] 20 mg PO BID 11/30/15 01/23/22 History Cyclobenzaprine [Flexeril] 10 mg PO HS 01/23/22 01/23/22 History DULoxetine HCL [Cymbalta] 60 mg PO DAILY 01/23/22 01/23/22 History Fluticasone Nasal [place] [Flonase 2 spray EA NOSTRIL DAILY 01/23/22 01/23/22 Hi story Nasal [place]] Furosemide [Lasix] 20 mg PO DAILY 01/23/22 01/23/22 History HYDROcodone/APAP 10-325MG [[place] 1 tab PO BID PRN 01/23/22 01/23/22 History 10-325] Loratadine [Claritin] 10 mg PO DAILY 01/23/22 01/23/22 History Potassium Chloride ER [K-Dur 10] 10 meq PO DAILY 01/23/22 01/23/22 History Tamsulosin HCl [Flomax] 0.8 mg PO DAILY 01/23/22 01/23/22 History Umeclidinium Brm/Vilanterol Tr 1 puff INHALATION RT-DAILY 01/23/22 01/23/22 History [Anoro Ellipta 62.5-25 Mcg INH] Allergies Allergy/AdvReac Type Severity Reaction Status Date / Time environmental Allergy Intermediate Cough Uncoded 03/19/20 12:47 Physical Exam Vitals: Vital Signs Temp Pulse Resp BP Pulse Ox 01/23/22 12:55 99.8 F H 90 16 153/84 95 Intake and Output 01/23/22 01/23/2222 06:59 14:59 22:59 Other: Weight 61.235 kg PHYSICAL EXAMINATION: Patient is lying in the bed comfortably, no acute distress, awake alert and oriented. Slow to respond.. HEENT: Normocephalic. Neck is supple. Pupils reactive. Nostrils clear. Oral cavity is moist. Neck reveals no JVD, carotid bruits, or thyromegaly. CHEST EXAMINATION: Trachea is central. Symmetrical expansion. Lung weinberg clear to auscultation and percussion. CARDIAC: Normal S1, S2 with no gallops. No murmurs ABDOMEN: Soft. Bowel sounds present. Nontender. No organomegaly. No abdominal bruits. Extremities: reveal no edema. No clubbing or cyanosis Neurologically awake, alert, oriented x3. Understand 4 out of 5 in left lower extremity. All other extremities 5 out of 5. Skin: No rash or skin lesions. Psychiatric: Coperative. Nonsuicidal, Musculoskeletal: No joint swelling or deformity. Results CBC & Chem 7: 01/23/22 12:58 01/23/22 12:58 Labs: Abnormal Lab Results - Last 24 Hours (Table) 01/23/22 01/23/22 Range/Units 12:58 12:58 WBC 13.0 H (3.8-10.6) k/uL Neutrophils # 11.1 H (1.3-7.7) k/uL Lymphocytes # 0.8 L (1.0-4.8) k/uL Sodium 129 L (137-145) mmol/L Chloride 97 L (98-107) mmol/L Creatinine 0.61 L (0.66-1.25) mg/dL Glucose 115 H (74-99) mg/dL Calcium 10.4 H (8.4-10.2) mg/dL Thrombosis Risk Factor Assmnt - DVT/VTE Prophylaxis DVT/VTE Prophylaxis: Mechanical Prophylaxis ordered Assessment and Plan Assessment: S/p fall. Patient was unresponsive for about 30 to 40 minutes. Rule out seizures vs Acute CVA Left lower extremity weakness with suspected acute infarct in the right temporal parietal lesion. Subdural hematoma 3 mm along the right cerebral convexity. History of multiple sclerosis Hypovolemic hyponatremia. Lasix is on hold currently. Hypertension Hyperlipidemia, Obstructive sleep apnea GERD Current everyday smoker Coronary disease history of stent placement DVT prophylaxis and GI prophylaxis SCDs Plan: Patient will be continued on telemetry monitoring. Continue with neurochecks every [address] head was ordered. Neurology was consulted. Patient was also seen by stroke network in the ER. Aspirin and subcu heparin is on hold due to subdural hematoma. Continue with home medications and follow-up closely. Prognosis guarded. Discussed with the patient and his at bedside in detail. Time with Patient: Greater than 30
[2022-01-24] MEDS: ATORVASTATIN 40 MG TAB PO SCH ×2 (01:47→20:26)
[2022-01-24] MEDS: PANTOPRAZOLE 40 MG TABLET PO SCH ×3 (01:47→20:26)
[2022-01-24] MEDS: HYDROcodone/APAP 10-325MG 1 EACH TAB PO PRN (05:12)
[2022-01-24] MEDS: IPRATROPIUM 0.5 MG/2.5 ML NEBU INHALATION SCH ×4 (08:00→19:32)
[2022-01-24] MEDS: SODIUM CHLORIDE 0.9% 1,000 ML IV SCH ×2 (10:39→20:26)
[2022-01-24] MEDS: FORMOTEROL FUMARATE 20 MCG/2 ML NEBU INHALATION SCH ×2 (10:40→19:32)
[2022-01-24] MEDS: FLUTICASONE 50MCG/SPRAY NASAL 16GM EA NOSTRIL SCH (10:40)
[2022-01-24] MEDS: DULoxetine HCL 60 MG CAPSULE.DR PO SCH (10:40)
[2022-01-24] MEDS: TAMSULOSIN 0.4 MG CAP.ER.24H PO SCH (10:40)
[2022-01-24 11:27] LABS: Basophils # (A) 0.1 k/uL (0-0.2); Basophils % (A) 1 %; Eosinophils # (A) 0.1 k/uL (0-0.7); Eosinophils % (A) 1 %; HCT 41.5 % (39.0-53.0); HGB 14.5 gm/dL (13.0-17.5); Lymphocytes % (A) 10 %; MCH 33.3 pg (25.0-35.0); MCV 95.3 fL (80.0-100.0); Mean Platelet Volume 7.5; Monocytes # (A) 0.8 k/uL (0-1.0); Monocytes % (A) 8 %; Neutrophils # (A) 8.3 k/uL (1.3-7.7); Neutrophils % (A) 79 %; Platelet Count 184 k/uL (150-450); RBC 4.36 m/uL (4.30-5.90); RDW 12.6 % (11.5-15.5); WBC 10.5 k/uL (3.8-10.6)
[2022-01-24 11:44] LABS: African American GFR (CKD) >90 (>60 ml/min/1.73 sqM); Anion Gap 10 mmol/L; Blood Urea Nitrogen 12 mg/dL (9-20); Calcium 10.3 mg/dL (8.4-10.2); Carbon Dioxide 24 mmol/L (22-30); Chloride 98 mmol/L (98-107); Glucose 85 mg/dL (74-99); Non-African American GFR(CKD) >90 (>60 ml/min/1.73 sqM); Potassium 3.7 mmol/L (3.5-5.1); Sodium 132 mmol/L (137-145)
--- NOTE | 2022-01-24 15:41 | P.CNNES ---
History of Present Illness Consult date: 01/24/22 History of Present Illness: The patient is a 71-year-old male who is seen in neurologic consultation on January 24, 2022, via teleneurology. History is obtained from the chart as well as from the patient. These 2 histories differ. According to the emergency department note and the history and physical, the patient reportedly fell. One note states the fall was witnessed another note states that the patient was found down on the floor, unresponsive. Patient reportedly had snoring respirations when he was found, he was apparently unresponsive for a few minutes. When he awakened, he was reportedly confused. EMS was called to the scene and by the time they arrived, the patient was reportedly back to his baseline. History from the patient states that he "did not fall". He says that he awoke with weakness in his left foot. He says he was unable to walk. He was unable to get the left foot to "work" for him. He denies weakness in his left arm. He denies weakness in the right arm and leg. He denies headache. He does report having pain in both of his hips and his legs, at the time of my evaluation. Workup in the emergency department included a CT scan of the brain and CT angiogram of the head and neck. The CT scan revealed evidence of a possible acute infarct involving the right parietal region, with a small, acute subdural hematoma along the right temporal parietal region. Past Medical History Past Medical History: GERD/Reflux, Hyperlipidemia, Hypertension, Sleep Apnea/CPAP/BIPAP Additional Past Medical History / Comment(s): sleep apnea multiple sclerosis History of Any Multi-Drug Resistant Organisms: None Reported Past Surgical History: Appendectomy, Back Surgery, Bowel Resection, Coronary Bypass/CABG, Hernia Repair, Orthopedic Surgery, Tonsillectomy Past Anesthesia/Blood Transfusion Reactions: No Reported Reaction Past Psychological History: No Psychological Hx Reported Smoking Status: Current every day smoker Medications and Allergies Home Medications Medication Instructions Recorded Confirmed Type Atorvastatin Calcium [Lipitor] 40 mg PO HS 11/30/15 01/23/22 History Ibuprofen [Motrin] 800 mg PO BID PRN 11/30/15 01/23/22 History Omeprazole [PriLOSEC] 20 mg PO BID 11/30/15 01/23/22 History Cyclobenzaprine [Flexeril] 10 mg PO HS 01/23/22 01/23/22 History DULoxetine HCL [Cymbalta] 60 mg PO DAILY 01/23/22 01/23/22 History Fluticasone Nasal [place] [Flonase 2 spray EA NOSTRIL DAILY 01/23/22 01/23/22 History Nasal [place]] Furosemide [Lasix] 20 mg PO DAILY 01/23/22 01/23/22 History HYDROcodone/APAP 10-325MG [[place] 1 tab PO BID PRN 01/23/22 01/23/22 History 10-325] Loratadine [Claritin] 10 mg PO DAILY 01/23/22 01/23/22 History Potassium Chloride ER [K-Dur 10] 10 meq PO DAILY 01/23/22 01/23/22 History Tamsulosin HCl [Flomax] 0.8 mg PO DAILY 01/23/22 01/23/22 History Umeclidinium Brm/Vilanterol Tr 1 puff INHALATION RT-DAILY 01/23/22 01/23/22 History [Anoro Ellipta 62.5-25 Mcg INH] Allergies Allergy/AdvReac Type Severity Reaction Status Date / Time environmental Allergy Intermediate Cough Uncoded 03/19/20 12:47 Physical Examination - Vital Signs Vital Signs: Vital Signs Pulse Resp BP Pulse Ox 01/24/22 11:57 85 01/24/22 08:20 84 01/24/22 08:12 84 01/24/22 08:11 82 01/24/22 08:01 81 01/24/22 06:50 81 15 128/70 97 01/24/22 05:24 74 15 135/66 98 01/24/22 03:10 73 15 132/72 98 01/23/22 23:45 80 15 139/69 99 01/23/22 21:45 77 15 143/87 99 Intake and Output 01/23/22 01/24/22 01/24/22 22:59 06:59 14:59 Output Total 425 Balance -425 Output: Urine 425 Gen. The patient is reclining on the gurney in the emergency department. He is well-nourished. He is in no acute distress. HEENT: Head is atraumatic, normocephalic. Fundus not visualized. There is no scleral icterus. Mucous membranes are moist. Neck: Supple without carotid bruits Heart: Regular rate and rhythm Lungs: Clear to auscultation Extremities: Without edema Neurological examination Mental status: The patient is awake, alert and oriented 3. His speech is clear. There is no dysarthria or aphasia. Cranial nerves: Pupils are equal at 3 mm and reactive. Visual weinberg are full to confrontation. Extraocular movements are intact. There is no nystagmus. Facial sensation is intact. There is no facial asymmetry. Hearing is grossly intact. Uvula and palate are midline. Shoulder shrug is symmetric. Tongue protrudes midline. There is no evidence of tongue bite. Motor: Bilateral upper extremity strength is 5/5. Right lower extremity strength 5/5. Left lower extremity strength 4/5. Coordination: The patient has mild difficulty with bilateral finger to nose testing. Rapid alternating movements are intact. Deep tendon reflexes: Bilateral upper extremity reflexes 2+/4+. Patellar reflexes 3+/4+. Left plantar response is extensor with the right being flexor. Sensation: Grossly intact to light touch throughout. There is no extinction with double simultaneous stimulation. Gait: Not assessed Results - Laboratory Findings CBC and BMP: 01/24/22 10:57 01/24/22 10:57 Abnormal Lab Findings: Abnormal Labs 01/23/22 01/23/22 01/24/22 12:58 12:58 10:57 WBC 13.0 H Neutrophils # 11.1 H Lymphocytes # 0.8 L Sodium 129 L 132 L Chloride 97 L Creatinine 0.61 L Glucose 115 H Calcium 10.4 H 10.3 H 01/24/22 10:57 WBC Neutrophils # 8.3 H Lymphocytes # Sodium Chloride Creatinine Glucose Calcium - Diagnostic Findings Comments: I have personally reviewed the imaging of the CT scan of the brain Assessment and Plan Assessment: 1. Acute infarct involving the right parietal region, per CT scan-neurological examination reveals left lower extremity weakness 2. Small right temporal subdural hematoma, likely secondary to trauma 3. Fall with loss of consciousness followed by confusion: Concussion versus seizure and postictal state 4. History of multiple sclerosis Plan: 1. MRI of the brain has been ordered to further evaluate the right parietal infarct 2. Stroke workup has been ordered including 2-D echocardiogram, lipid panel, hemoglobin A1c, PT, OT and speech therapy consultations 3. We will order EEG to further investigate seizure 4. The patient should be started on high-dose statin 5. Aspirin 81 mg can be initiated at this time, as the repeat CT scan of the brain reveals no signs of further bleeding 6. May consider starting Plavix, following MRI of brain, for dual antiplatelet therapy to prevent further strokes Thank you for allowing us to participate in the care of this patient Time with Patient: Greater than 30 (Spent 45 minutes examining patient, reviewing imaging, labs, documentation and preparing a note)
[2022-01-24 16:58] LABS: Chol/HDL Ratio 1.88 Ratio; LDL Cholesterol,Calculated 36.1 mg/dL (0.0-131.0); VLDL Calculation 16.28 mg/dL (5.00-40.00)
[2022-01-24 19:08] LABS: Amorphous Sediment,Urine Rare /hpf; Appearance,Urine Cloudy (Clear); Bilirubin,Urine Negative (Negative); Blood,Urine Negative (Negative); Color,Urine Yellow; Glucose,Urine (UA) Negative (Negative); Hyaline Casts,Urine 1 /lpf (0-2); Ketones,Urine 1+ (Negative); Leukocyte Esterase,Urine Negative (Negative); Mucus,Urine Rare /hpf; Nitrite,Urine Negative (Negative); PH, Urine 6.5 (5.0-8.0); Protein,Urine Negative (Negative); RBC,Urine <1 /hpf (0-5); Specific Gravity,Urine 1.012 (1.001-1.035); Urobilinogen,Urine <2.0 mg/dL (<2.0); WBC,Urine 2 /hpf (0-5)
[2022-01-24] MEDS: CYCLOBENZAPRINE 10 MG TAB PO SCH (20:23)
--- NOTE | 2022-01-24 21:29 | P.PN ---
Subjective Progress Note Date: 01/24/22 Patient is a 71-year-old male with a known history of multiple sclerosis, hypertension, hyperlipidemia, obstructive sleep apnea, GERD and currently everyday smoker, coronary disease with history of CABG and other multiple medical problems was brought to ER status post fall and unresponsiveness. To her patient was complaining of not able to move and leg weakness on the left side around 6:15 AM in the morning yesterday. Today morning patient's son heard a sound and went into see the patient was found on the floor. Patient was confused for about 30 to 45 minutes. No weakness or seizures. No bowel or bladder incontinence. EMS was called and by the time he became more alert and fully responsive and oriented. Currently patient is still having left leg weakness but able to move while in the bed. Denied any complaints of chest pain or shortness of breath. No fever no chills. No headache or dizziness or lightheadedness. CT head showed suspected acute infarct in the right temporal parietal lesion. MRI would be useful for future evaluation. Remote lacunar infarct in the right occipital lobe chronic ischemic white matter demyelination changes. No acute intra or extra-axial hemorrhage. CT angiogram head and neck showed trace 3 mm subdural hematoma along the right cerebral convexity. Trace subdural hematoma along the anterior falx 5 mm cortical contact fusion anterior right frontal lobe. Neck no hemodynamically significant vertebral or carotid artery stenosis. COPD and some fibrosis of cephalized from fluid overload state. Chest x-ray showed no acute process. There is likely some scarring Laboratory data showed WBC 13.0 hemoglobin 14.1 platelets 174 Sodium 129 potassium 3.7 chloride 97 BUN 11 creatinine 0.6 calcium 10.4 and liver enzymes are not elevated troponin x1 negative coronavirus PCR not detected. 01/24/2022 Patient is currently lying in bed. Awake alert but seems to be confused. Currently requiring oxygen at 4 L via nasal cannula. Afebrile. No nausea vomiting or abdominal pain or diarrhea. Still having left lower extremity weakness compared to right. Repeat CT head showed a small acute right-sided subdural acute hematoma without change. Patient was initiated on aspirin 81 mg daily. MRI of the brain was ordered and follow-up stroke work-up. Laboratory data showed sodium level improved to 132 potassium 3.7 chloride 98 BUN 12 and creatinine 0.7 WBC 10.4 hemoglobin 14.5 and platelets 184 LDL 36.1 B12 389 ESS level is 2.38 Urinalysis is negative for infection. Neurology is on board. Current medications reviewed. Objective - Vital Signs Vital signs: Vital Signs Temp 99.2 F 01/24/22 12:45 Pulse 94 01/24/22 12:45 Resp 18 01/24/22 12:45 BP 125/71 01/24/22 12:45 Pulse Ox 92 L 01/24/22 12:45 FiO2 Intake & Output 01/23/22 01/24/22 01/24/22 18:59 06:59 18:59 Output Total 425 Balance -425 Weight 61.235 kg Output: Urine 425 - Exam PHYSICAL EXAMINATION: Patient is lying in the bed comfortably, no acute distress, awake alert and oriented. Slow to respond.. HEENT: Normocephalic. Neck is supple. Pupils reactive. Nostrils clear. Oral cavity is moist. Neck reveals no JVD, carotid bruits, or thyromegaly. CHEST EXAMINATION: Trachea is central. Symmetrical expansion. Lung weinberg clear to auscultation and percussion. CARDIAC: Normal S1, S2 with no gallops. No murmurs ABDOMEN: Soft. Bowel sounds present. Nontender. No organomegaly. No abdominal bruits. Extremities: reveal no edema. No clubbing or cyanosis Neurologically awake, alert, oriented x3. Understand 4 out of 5 in left lower extremity. All other extremities 5 out of 5. Skin: No rash or skin lesions. Psychiatric: Coperative. Nonsuicidal, Musculoskeletal: No joint swelling or deformity. - Labs CBC & Chem 7: 01/24/22 10:57 01/24/22 10:57 Labs: Abnormal Lab Results - Last 24 Hours (Table) 01/24/22 01/24/22 Range/Units 10:57 10:57 Neutrophils # 8.3 H (1.3-7.7) k/uL Sodium 132 L (137-145) mmol/L Calcium 10.3 H (8.4-10.2) mg/dL Assessment and Plan Assessment: S/p fall. Patient was unresponsive for about 30 to 40 minutes. Rule out seizures vs Acute CVA Left lower extremity weakness with suspected acute infarct in the right temporal parietal lesion. Subdural hematoma 3 mm along the right cerebral convexity. traumatic History of multiple sclerosis Hypovolemic hyponatremia. Lasix is on hold currently. Hypertension Hyperlipidemia, Obstructive sleep apnea GERD Current everyday smoker Coronary disease history of stent placement DVT prophylaxis and GI prophylaxis SCDs Plan: Patient will be continued on telemetry monitoring. Continue with neurochecks e very [address] head Showed stable hematoma. Patient was started on aspirin 80 mg daily. Continue with statins. Complete stroke work-up including MRI of the brain was ordered. Neurology is on board. Continue with gentle IV hydration and bedside swallow evaluation to initiate oral diet. [facility] consult and PT OT. Continue to follow closely and prognosis guarded. Discussed with patient's in detail at bedside. Time with Patient: Greater than 30
[2022-01-25 08:29] LABS: Basophils # (A) 0.1 k/uL (0-0.2); Basophils % (A) 1 %; Eosinophils # (A) 0.1 k/uL (0-0.7); Eosinophils % (A) 1 %; HCT 38.8 % (39.0-53.0); HGB 13.5 gm/dL (13.0-17.5); Lymphocytes # (A) 0.7 k/uL (1.0-4.8); Lymphocytes % (A) 6 %; MCH 32.9 pg (25.0-35.0); MCHC 34.7 g/dL (31.0-37.0); MCV 94.7 fL (80.0-100.0); Mean Platelet Volume 7.7; Monocytes # (A) 0.8 k/uL (0-1.0); Monocytes % (A) 6 %; Neutrophils # (A) 10.2 k/uL (1.3-7.7); Neutrophils % (A) 84 %; Platelet Count 167 k/uL (150-450); WBC 12.1 k/uL (3.8-10.6)
[2022-01-25] MEDS: ASPIRIN 81 MG PO SCH (08:32)
[2022-01-25] MEDS: PANTOPRAZOLE 40 MG TABLET PO SCH ×2 (08:32→20:57)
[2022-01-25] MEDS: DULoxetine HCL 60 MG CAPSULE.DR PO SCH (08:32)
[2022-01-25] MEDS: TAMSULOSIN 0.4 MG CAP.ER.24H PO SCH (08:32)
[2022-01-25] MEDS: FLUTICASONE 50MCG/SPRAY NASAL 16GM EA NOSTRIL SCH (08:33)
[2022-01-25] MEDS: SODIUM CHLORIDE 0.9% 1,000 ML IV SCH (08:33)
[2022-01-25 08:35] LABS: African American GFR (CKD) >90 (>60 ml/min/1.73 sqM); Anion Gap 10 mmol/L; Blood Urea Nitrogen 14 mg/dL (9-20); Calcium 10.1 mg/dL (8.4-10.2); Carbon Dioxide 22 mmol/L (22-30); Chloride 102 mmol/L (98-107); Glucose 84 mg/dL (74-99); Non-African American GFR(CKD) >90 (>60 ml/min/1.73 sqM); Potassium 3.4 mmol/L (3.5-5.1); Sodium 134 mmol/L (137-145)
[2022-01-25] MEDS: FORMOTEROL FUMARATE 20 MCG/2 ML NEBU INHALATION SCH ×2 (09:09→21:00)
[2022-01-25] MEDS: IPRATROPIUM 0.5 MG/2.5 ML NEBU INHALATION SCH ×4 (09:09→21:00)
[2022-01-25] MEDS: POTASSIUM CHLORIDE ER 20 MEQ TAB.ER PO SCH ×2 (12:26→13:34)
--- NOTE | 2022-01-25 16:27 | P.PN ---
Subjective Progress Note Date: 01/25/22 The patient is a 71-year-old male who is seen in neurologic follow-up on January 25, 2022, via teleneurology. The patient is sleeping as we entered the room. He is arousable. He denies headache. He denies weakness and numbness in his extremities. January 24, 2022 History is obtained from the chart as well as from the patient. These 2 histories differ. According to the emergency department note and the history and physical, the patient reportedly fell. One note states the fall was wit nessed another note states that the patient was found down on the floor, unresponsive. Patient reportedly had snoring respirations when he was found, he was apparently unresponsive for a few minutes. When he awakened, he was reportedly confused. EMS was called to the scene and by the time they arrived, the patient was reportedly back to his baseline. History from the patient states that he "did not fall". He says that he awoke with weakness in his left foot. He says he was unable to walk. He was unable to get the left foot to "work" for him. He denies weakness in his left arm. He denies weakness in the right arm and leg. He denies headache. He does report having pain in both of his hips and his legs, at the time of my evaluation. Workup in the emergency department included a CT scan of the brain and CT angiogram of the head and neck. The CT scan revealed evidence of a possible acute infarct involving the right parietal region, with a small, acute subdural hematoma along the right temporal parietal region. Objective - Vital Signs Vital signs: Vital Signs Temp 98.1 F 01/25/22 08:21 Pulse 108 H 01/25/22 09:24 Resp 18 01/25/22 08:37 BP 150/76 01/25/22 08:21 Pulse Ox 97 01/25/22 08:21 FiO2 Intake & Output 01/24/22 01/25/22 01/25/22 18:59 06:59 18:59 Intake Total 0 Output Total 425 275 Balance -425 -275 Weight 61.235 kg Intake: Oral 0 Output: Urine 425 275 Other: Voiding Method Urinal Urinal Urinal # Voids 0 - Exam Gen.: The patient is reclining in the bed. He is well-nourished, well-developed and in no acute distress. HEENT: Head is atraumatic, normocephalic. Fundus not visualized. There is no scleral icterus. Mucous membranes are moist Neurological examination Mental status: The patient is awake, alert and oriented 3. His speech is clear. There is no dysarthria or aphasia. Cranial nerves: Pupils are equal at 3 mm and reactive. Visual weinberg are full to confrontation. Extraocular movements are intact. There is no nystagmus. Facial sensation is intact. There is no facial asymmetry. Hearing is grossly intact. Uvula and palate are midline. Shoulder shrug is symmetric. Tongue protrudes midline. There is no evidence of tongue bite. Motor: Bilateral upper extremity strength is 5/5. Right lower extremity strength 5/5. Left lower extremity strength 4/5. - Labs CBC & Chem 7: 01/25/22 07:37 01/25/22 07:37 Labs: Abnormal Lab Results - Last 24 Hours (Table) 01/24/22 01/24/22 01/24/22 Range/Units 10:57 10:57 18:37 WBC (3.8-10.6) k/uL RBC (4.30-5.90) m/uL Hct (39.0-53.0) % Neutrophils # 8.3 H (1.3-7.7) k/uL Lymphocytes # (1.0-4.8) k/uL Sodium 132 L (137-145) mmol/L Potassium (3.5-5.1) mmol/L Calcium 10.3 H (8.4-10.2) mg/dL Urine Ketones 1+ H (Negative) Amorphous Sediment Rare H (None) /hpf Urine Mucus Rare H (None) /hpf 01/25/22 01/25/22 Range/Units 07:37 07:37 WBC 12.1 H (3.8-10.6) k/uL RBC 4.10 L (4.30-5.90) m/uL Hct 38.8 L (39.0-53.0) % Neutrophils # 10.2 H (1.3-7.7) k/uL Lymphocytes # 0.7 L (1.0-4.8) k/uL Sodium 134 L (137-145) mmol/L Potassium 3.4 L (3.5-5.1) mmol/L Calcium (8.4-10.2) mg/dL Urine Ketones (Negative) Amorphous Sediment (None) /hpf Urine Mucus (None) /hpf Assessment and Plan Assessment: 1. Acute infarct involving the right parietal region, per CT scan-neurological examination reveals left lower extremity weakness 2. Small right temporal subdural hematoma, likely secondary to trauma 3. Fall with loss of consciousness followed by confusion: Concussion versus seizure and postictal state 4. History of multiple sclerosis Plan: 1. MRI of the brain has been ordered to further evaluate the right parietal infarct 2. Stroke workup has been ordered including 2-D echocardiogram, lipid panel, hemoglobin A1c, PT, OT and speech therapy consultations 3. We will order EEG to further investigate seizure 4. The patient should be started on high-dose statin 5. Aspirin 81 mg can be initiated at this time, as the repeat CT scan of the brain reveals no signs of further bleeding 6. May consider starting Plavix, following MRI of brain, for dual antiplatelet therapy to prevent further strokes Thank you for allowing us to participate in the care of this patient Dr. Mullins will assume neurologic coverage of the this patient as January 26, 2022 Time with Patient: Less than 30 (spent 25 minutes examining patient, reviewing imaging, labs and preparing a note)
[2022-01-25] MEDS: HYDROcodone/APAP 10-325MG 1 EACH TAB PO PRN (20:56)
[2022-01-25] MEDS: ATORVASTATIN 40 MG TAB PO SCH (20:57)
[2022-01-25] MEDS: CYCLOBENZAPRINE 10 MG TAB PO SCH (20:57)
--- NOTE | 2022-01-26 01:05 | P.PN ---
Subjective Progress Note Date: 01/25/22 Patient is a 71-year-old male with a known history of multiple sclerosis, hypertension, hyperlipidemia, obstructive sleep apnea, GERD and currently everyday smoker, coronary disease with history of CABG and other multiple medical problems was brought to ER status post fall and unresponsiveness. To her patient was complaining of not able to move and leg weakness on the left side around 6:15 AM in the morning yesterday. Today morning patient's son heard a sound and went into see the patient was found on the floor. Patient was confused for about 30 to 45 minutes. No weakness or seizures. No bowel or bladder incontinence. EMS was called and by the time he became more alert and fully responsive and oriented. Currently patient is still having left leg weakness but able to move while in the bed. Denied any complaints of chest pain or shortness of breath. No fever no chills. No headache or dizziness or lightheadedness. CT head showed suspected acute infarct in the right temporal parietal lesion. MRI would be useful for future evaluation. Remote lacunar infarct in the right occipital lobe chronic ischemic white matter demyelination changes. No acute intra or extra-axial hemorrhage. CT angiogram head and neck showed trace 3 mm subdural hematoma along the right cerebral convexity. Trace subdural hematoma along the anterior falx 5 mm cortical contact fusion anterior right frontal lobe. Neck no hemodynamically significant vertebral or carotid artery stenosis. COPD and some fibrosis of cephalized from fluid overload state. Chest x-ray showed no acute process. There is likely some scarring Laboratory data showed WBC 13.0 hemoglobin 14.1 platelets 174 Sodium 129 potassium 3.7 chloride 97 BUN 11 creatinine 0.6 calcium 10.4 and liver enzymes are not elevated troponin x1 negative coronavirus PCR not detected. 01/24/2022 Patient is currently lying in bed. Awake alert but seems to be confused. Currently requiring oxygen at 4 L via nasal cannula. Afebrile. No nausea vomiting or abdominal pain or diarrhea. Still having left lower extremity weakness compared to right. Repeat CT head showed a small acute right-sided subdural acute hematoma without change. Patient was initiated on aspirin 81 mg daily. MRI of the brain was ordered and follow-up stroke work-up. Laboratory data showed sodium level improved to 132 potassium 3.7 chloride 98 BUN 12 and creatinine 0.7 WBC 10.4 hemoglobin 14.5 and platelets 184 LDL 36.1 B12 389 ESS level is 2.38 Urinalysis is negative for infection. Neurology is on board. 01/25/2022 Patient is currently resting in the bed. Awake alert and oriented x3. No complaints of chest pain. Patient is able to move his extremities while in bed. Patient still complains of left lower extremity weakness. Patient had stroke work-up including CTA head and CT angiogram of the head and neck. Showed acute infarct involving the right parietal region and also small right temporal subdural hematoma.. MRI to be done tomorrow. Patient denies any complaints of cough or sputum production. No headache or dizziness or lightheadedness. Laboratory data showed WBC 12.1 hemoglobin 13.5 and platelets 167 sodium 134 potassium 3.4 BUN 14 and creatinine 0.64 TSH and B12 levels within normal limits. Urinalysis is negative for infection. Neurology is on board. Current medications reviewed. Objective - Vital Signs Vital signs: Vital Signs Temp 99.2 F 01/25/22 16:00 Pulse 108 H 01/25/22 16:38 Resp 18 01/25/22 16:00 BP 113/61 01/25/22 16:00 Pulse Ox 93 L 01/25/22 16:00 FiO2 Intake & Output 01/24/22 01/25/22 01/25/22 18:59 06:59 18:59 Intake Total 0 Output Total 425 275 400 Balance -425 -275 -400 Weight 61.235 kg Intake: Oral 0 Output: Urine 425 275 400 Other: Voiding Method Urinal Urinal Urinal # Voids 0 - Exam PHYSICAL EXAMINATION: Patient is lying in the bed comfortably, no acute distress, awake alert and oriented. Slow to respond.. HEENT: Normocephalic. Neck is supple. Pupils reactive. Nostrils clear. Oral cavity is moist. Neck reveals no JVD, carotid bruits, or thyromegaly. CHEST EXAMINATION: Trachea is central. Symmetrical expansion. Lung weinberg clear to auscultation and percussion. CARDIAC: Normal S1, S2 with no gallops. No murmurs ABDOMEN: Soft. Bowel sounds present. Nontender. No organomegaly. No abdominal bruits. Extremities: reveal no edema. No clubbing or cyanosis Neurologically awake, alert, oriented x3. Understand 4 out of 5 in left lower extremity. All other extremities 5 out of 5. Skin: No rash or skin lesions. Psychiatric: Coperative. Nonsuicidal, Musculoskeletal: No joint swelling or deformity. - Labs CBC & Chem 7: 01/25/22 07:37 01/25/22 07:37 Labs: Abnormal Lab Results - Last 24 Hours (Table) 01/24/22 01/25/22 01/25/22 Range/Units 18:37 07:37 07:37 WBC 12.1 H (3.8-10.6) k/uL RBC 4.10 L (4.30-5.90) m/uL Hct 38.8 L (39.0-53.0) % Neutrophils # 10.2 H (1.3-7.7) k/uL Lymphocytes # 0.7 L (1.0-4.8) k/uL Sodium 134 L (137-145) mmol/L Potassium 3.4 L (3.5-5.1) mmol/L Urine Ketones 1+ H (Negative) Amorphous Sediment Rare H (None) /hpf Urine Mucus Rare H (None) /hpf Assessment and Plan Assessment: S/p fall. Patient was unresponsive for about 30 to 40 minutes. Rule out seizures vs Acute CVA Left lower extremity weakness with suspected acute infarct in the right temporal parietal lesion. Subdural hematoma 3 mm along the right cerebral convexity. traumatic History of multiple sclerosis Hypovolemic hyponatremia. Lasix is on hold currently. Hypertension Hyperlipidemia, Obstructive sleep apnea GERD Current everyday smoker Coronary disease history of stent placement DVT prophylaxis and GI prophylaxis SCDs Plan: Patient will be continued on telemetry monitoring. Continue with neurochecks every [address] head Showed stable hematoma. Patient was started on aspirin 80 mg daily. Continue with statins. Complete stroke work-up including MRI of the brain was ordered. Neurology is on board. Continue with gentle IV hydration and bedside swallow evaluation to initiate oral diet. TEACHER EMOTIONALLY IMPAIRED consult and PT OT. Continue to follow closely and prognosis guarded. Discussed with patient's in detail at bedside. Time with Patient: Greater than 30
[2022-01-26] MEDS: SODIUM CHLORIDE 0.9% 1,000 ML IV SCH ×2 (04:06→23:37)
[2022-01-26] MEDS: FORMOTEROL FUMARATE 20 MCG/2 ML NEBU INHALATION SCH ×2 (08:09→21:36)
[2022-01-26] MEDS: IPRATROPIUM 0.5 MG/2.5 ML NEBU INHALATION SCH ×4 (08:09→21:36)
[2022-01-26] MEDS: PANTOPRAZOLE 40 MG TABLET PO SCH ×2 (09:18→22:22)
[2022-01-26] MEDS: TAMSULOSIN 0.4 MG CAP.ER.24H PO SCH (09:18)
[2022-01-26] MEDS: DULoxetine HCL 60 MG CAPSULE.DR PO SCH (09:18)
[2022-01-26] MEDS: ASPIRIN 81 MG PO SCH (09:18)
[2022-01-26 11:09] LABS: African American GFR (CKD) >90 (>60 ml/min/1.73 sqM); Anion Gap 6 mmol/L; Blood Urea Nitrogen 14 mg/dL (9-20); Calcium 9.9 mg/dL (8.4-10.2); Carbon Dioxide 27 mmol/L (22-30); Chloride 100 mmol/L (98-107); Glucose 138 mg/dL (74-99); Non-African American GFR(CKD) >90 (>60 ml/min/1.73 sqM); Potassium 3.8 mmol/L (3.5-5.1); Sodium 133 mmol/L (137-145)
[2022-01-26 11:35] LABS: Basophils % (A) 0 %; Eosinophils # (A) 0.1 k/uL (0-0.7); Eosinophils % (A) 1 %; HCT 38.3 % (39.0-53.0); HGB 13.2 gm/dL (13.0-17.5); Lymphocytes % (A) 9 %; MCH 33.1 pg (25.0-35.0); MCHC 34.4 g/dL (31.0-37.0); MCV 96.3 fL (80.0-100.0); Mean Platelet Volume 9.1; Monocytes # (A) 1.1 k/uL (0-1.0); Monocytes % (A) 9 %; Neutrophils % (A) 79 %; Platelet Count 163 k/uL (150-450); RBC 3.98 m/uL (4.30-5.90); WBC 11.3 k/uL (3.8-10.6)
--- NOTE | 2022-01-26 13:46 | MR ---
EXAMINATION TYPE: MR brain wo con DATE OF EXAM: 01/26/2022 COMPARISON: CT brain 3 days ago and older studies. MRI brain 2020 06/29/2017 HISTORY: Unresponsive episode, CVA History of multiple sclerosis. TECHNIQUE: Multiplanar, multisequence imaging of the brain and brainstem is performed without IV cont rast. FINDINGS: Diffusion weighted images demonstrate no evidence of a recent infarct or other diffusion abnormality. There is mild ventricular and sulcal prominence redemonstrated. Moderate to severe Focal and confluen t areas of T2 hyperintensity are seen throughout the white matter bilaterally. Lesions are nonspecifi c in appearance and distribution. There is 4 mm focus of low T2 signal in the right frontal lobe axia l image 23 corresponding to the site of acute intraparenchymal hemorrhage. There is tiny amount of ri ght-sided acute/subacute extra-axial hemorrhage redemonstrated over the right frontal lobe. Old infar ct inferior right cerebellar hemisphere laterally axial image 5 redemonstrated. Midline structures demonstrate normal morphology. The craniocervical junction appears within normal limits. Normal vascular flow voids are present. The visualized sinuses are clear and the globes are i ntact. New fluid signal right mastoid air cells. IMPRESSION: 1. No MRI evidence for recent infarct. 2. Mild to moderate diffuse cerebral atrophy with advanced nonspecific white matter changes felt to b e on basis of known multiple sclerosis redemonstrated. No significant change from prior MRI 2020. 3. Small focus of acute intraparenchymal hemorrhage right frontal lobe redemonstrated. Tiny right emeli ed extra-axial acute/subacute hemorrhage again seen. 4. Possible new right-sided mastoiditis, correlate clinically.
[2022-01-26] MEDS: FLUTICASONE 50MCG/SPRAY NASAL 16GM EA NOSTRIL SCH (14:07)
--- NOTE | 2022-01-26 16:34 | XR ---
EXAMINATION TYPE: XR chest 1V portable DATE OF EXAM: 01/26/2022 CLINICAL HISTORY: Difficulty breathing and CHF progress study. TECHNIQUE: Single AP portable upright view of the chest is obtained. COMPARISON: Chest x-ray from 3 days earlier FINDINGS: Background Chronic emphysematous change with more prominent bibasilar opacities and right upper lung scarring redemonstrated. Small to tiny bilateral pleural effusions more prominent from arpit or. Cardiac silhouette size stable within normal limits. Osseous structures remain demineralized with underlying scoliosis. IMPRESSION: New small to tiny bilateral pleural effusions. Background Chronic emphysematous and pulmonary fibrotic changes redemonstrated. More prominent bibasilar acute i nfiltrate and/or atelectasis noted. Progress study advised.
--- NOTE | 2022-01-26 17:30 | CA ---
Transthoracic Echo Report Name: Callie Álvarez Age: 71 Gender: M : 1950 Exam Date: 01/26/2022 10:10 Exam Location: [place] [facility] Ht (in): 70 Wt (lb): 135 Ordering Physician: Reid Klein DO Attending/Referring Phys: Music Educator Jaylin Bartlett RDCS Procedure CPT: Indications: Thrombus Cardiac Hx: Technical Quality: Fair Contrast 1: Total Dose (mL): Contrast 2: Total Dose (mL): MEASUREMENTS (Male / Female) Normal Values 2D ECHO LV Diastolic Diameter PLAX 4.0 cm 4.2 - 5.9 / 3.9 - 5.3 cm LV Systolic Diameter PLAX 2.5 cm IVS Diastolic Thickness 0.9 cm 0.6 - 1.0 / 0.6 - 0.9 cm LVPW Diastolic Thickness 1.0 cm 0.6 - 1.0 / 0.6 - 0.9 cm LV Relative Wall Thickness 0.5 LA Volume 52.1 cm??? 18 - 58 / 22 - 52 cm??? M-MODE Aortic Root Diameter MM 2.8 cm LA Systolic Diameter MM 3.9 cm LA Ao Ratio MM 1.4 DOPPLER AV Peak Velocity 117.8 cm/s AV Peak Gradient 5.5 mmHg LVOT Peak Velocity 79.6 cm/s LVOT Peak Gradient 2.5 mmHg MV Area PHT 4.1 cm??? Mitral E Point Velocity 58.8 cm/s Mitral A Point Velocity 85.7 cm/s Mitral E to A Ratio 0.7 MV Deceleration Time 185.0 ms TR Peak Velocity 212.8 cm/s TR Peak Gradient 18.1 mmHg Right Ventricular Systolic Press 23.0 mmHg FINDINGS Left Ventricle Normal Left ventricular size, wall thickness, systolic function with no obvious regional wall motion abnormalities. Normal Left ventricular diastolic filling pattern. Left ventricular ejection fraction is estimated at 55-60 %. Right Ventricle Right ventricle not well visualized. Right Atrium Normal right atrial size. Left Atrium Normal left atrial size. Mitral Valve Structurally normal mitral valve. No evidence for mitral valve prolapse. No mitral stenosis. Trace to mild mitral regurgitation. Aortic Valve Aortic valve not well visualized. No aortic stenosis. No aortic regurgitation. Tricuspid Valve Structurally normal tricuspid valve. Mild tricuspid regurgitation. Pulmonic Valve Pulmonic valve not well visualized. Pericardium No pericardial effusion. Aorta Normal size aortic root and proximal ascending aorta. CONCLUSIONS Normal LV size and systolic function. No significant abnormality in the Doppler exam. No pericardial effusion Previewed by: Dr. Samantha Elliott MD (Electronically Signed) Final Date: 26 January 2022 17:29
[2022-01-26] MEDS: CYCLOBENZAPRINE 10 MG TAB PO SCH (22:22)
[2022-01-26] MEDS: ATORVASTATIN 40 MG TAB PO SCH (22:22)
--- NOTE | 2022-01-27 07:01 | PN ---
PROGRESS NOTE HISTORY OF PRESENT ILLNESS: This 71-year-old gentleman was admitted for a period of unresponsiveness and possible acute stroke and fall, is being closely monitored this time. Suspected acute infarct in the right temporoparietal region was noted. Neurology is evaluating the patient. Otherwise, a brain MRI was done today which I reviewed personally which showed no evidence of infarct, cerebral atrophy, small focus of acute intraparenchymal hemorrhage right frontal lobe. The patient also had some cough while eating also. PAST MEDICAL HISTORY: Reviewed. REVIEW OF SYSTEMS: Could not be taken as the patient is confused. CURRENT MEDICATIONS: Reviewed include [place] 10 mg, doses and rest of medications reviewed. PHYSICAL EXAMINATION: VITAL SIGNS: Pulse is 82, blood pressure 120/62, respirations 16. HEENT: Conjunctivae normal. Oral mucosa moist. NECK: No jugular venous distention. No carotid bruit CARDIOVASCULAR: S1, S2 muffled. RESPIRATION: Bilateral scattered rhonchi. ABDOMEN: Soft. NERVOUS SYSTEM: No focal deficits. LABS: Hemoglobin 13.6, rest of the labs are noted. Chest x-ray is not available. ASSESSMENT: 1. Acute right frontal lobe intraparenchymal hemorrhage, small foci and tiny right- sided extra-axial subacute hemorrhage. 2. Rule out aspiration pneumonia. 3. History of multiple sclerosis. 4. Hypertension. 5. Hyperlipidemia. 6. Gait dysfunction. 7. Multiple medical issues. RECOMMENDATIONS AND DISCUSSION: This 71-year-old gentleman presented with multiple complex medical issues, we will monitor the patient closely continue the current medications. We will avoid antiplatelets at this time. Otherwise, I would closely follow with Neurology, PT OT evaluation, neuro checks. Possible ECF rehab, overall prognosis guarded because of multiple complex medical issues. Further recommendations to follow. MMODL / IJN: [id number] /
[2022-01-27 08:04] LABS: Basophils % (A) 0 %; Eosinophils # (A) 0.2 k/uL (0-0.7); Eosinophils % (A) 2 %; HCT 36.4 % (39.0-53.0); HGB 12.8 gm/dL (13.0-17.5); Lymphocytes # (A) 1.1 k/uL (1.0-4.8); Lymphocytes % (A) 12 %; MCH 33.2 pg (25.0-35.0); MCHC 35.1 g/dL (31.0-37.0); MCV 94.6 fL (80.0-100.0); Mean Platelet Volume 7.6; Monocytes # (A) 0.8 k/uL (0-1.0); Monocytes % (A) 9 %; Neutrophils # (A) 7.1 k/uL (1.3-7.7); Neutrophils % (A) 76 %; Platelet Count 185 k/uL (150-450); RBC 3.85 m/uL (4.30-5.90); RDW 12.5 % (11.5-15.5); WBC 9.3 k/uL (3.8-10.6)
[2022-01-27 08:20] LABS: ALT 20 U/L (4-49); AST 22 U/L (17-59); African American GFR (CKD) >90 (>60 ml/min/1.73 sqM); Albumin 2.8 g/dL (3.5-5.0); Alkaline Phosphatase 95 U/L (38-126); Anion Gap 5 mmol/L; Blood Urea Nitrogen 12 mg/dL (9-20); Calcium 10.1 mg/dL (8.4-10.2); Carbon Dioxide 26 mmol/L (22-30); Chloride 97 mmol/L (98-107); Glucose 105 mg/dL (74-99); Non-African American GFR(CKD) >90 (>60 ml/min/1.73 sqM); Sodium 128 mmol/L (137-145); Total Bilirubin 0.7 mg/dL (0.2-1.3); Total Protein 5.1 g/dL (6.3-8.2)
[2022-01-27] MEDS: PANTOPRAZOLE 40 MG TABLET PO SCH ×2 (08:26→20:57)
[2022-01-27] MEDS: TAMSULOSIN 0.4 MG CAP.ER.24H PO SCH (08:26)
[2022-01-27] MEDS: DULoxetine HCL 60 MG CAPSULE.DR PO SCH (08:26)
[2022-01-27] MEDS: FORMOTEROL FUMARATE 20 MCG/2 ML NEBU INHALATION SCH ×2 (08:45→21:46)
[2022-01-27] MEDS: IPRATROPIUM 0.5 MG/2.5 ML NEBU INHALATION SCH ×4 (08:45→21:46)
--- NOTE | 2022-01-27 10:18 | P.PN ---
Subjective Progress Note Date: 01/26/22 Patient was seen for a follow-up. Patient initially seen by Dr. Torres. Please refer to her note for details. It appears patient was admitted for a fall. There was some inconsistency in the documentation, as one report mentioned that she fell and other mentioned that she was found down on the floor unresponsive. When he was found, he was unresponsive for a few minutes. When he was awakened, he was reportedly confused. By the time EMS arrived, he was back to baseline. He noticed weakness of the left leg. Patient at present denies any headache, no dizziness. Patient states he was diagnosed with MS 6 years ago at age 65. He follows up with Dr. Daley. Patient has numbness of hands and feet for last 3-4 years attributed to his MS. Patient denies any diabetes or alcohol use. Telemetry monitoring showing sinus rhythm. Objective - Vital Signs Vital signs: Vital Signs Temp 98.0 F 01/26/22 15:15 Pulse 80 01/26/22 16:22 Resp 16 01/26/22 15:15 BP 113/59 01/26/22 15:15 Pulse Ox 96 01/26/22 16:10 FiO2 Intake & Output 01/26/22 01/26/22 01/27/22 06:59 18:59 06:59 Intake Total 100 Output Total 825 300 Balance -725 -300 Intake: Oral 100 Output: Urine 825 300 Other: Voiding Method Urinal Urinal - Exam Patient is alert and awake. Patient knows it is January and said the year was 2016. However he was able to read the current year on the noticed board and said was 2021. He states that he is in the "[facility]" in [facility]. He knows name of current president Mr. Rony Estrada. Speech and language functions are normal. Cranial nerves revealed pupils equal round and reacting, visual weinberg are full, face is symmetric. Tongue protrudes to the midline. Muscle strength testing (right/left) deltoid 5-/4+, biceps 5-/5-, triceps 5/5, traffic or system dispatcher 5-/5-, hip flexion 4-/4-, ankle dorsiflexion 5/5. Reflexes are (right/left) biceps 2/3, brachioradialis 1+/3, knees 2+3/2+3, plantars are upgoing bilaterally. Sensory touch is equal. Cerebellar functions revealed very mild ataxia for [id number] testing bilaterally. - Labs CBC & Chem 7: 01/27/22 07:23 01/27/22 07:23 Labs: Abnormal Lab Results - Last 24 Hours (Table) 01/26/22 01/26/22 Range/Units 09:26 09:26 WBC 11.3 H (3.8-10.6) k/uL RBC 3.98 L (4.30-5.90) m/uL Hct 38.3 L (39.0-53.0) % Neutrophils # 9.0 H (1.3-7.7) k/uL Monocytes # 1.1 H (0-1.0) k/uL Sodium 133 L (137-145) mmol/L Glucose 138 H (74-99) mg/dL Assessment and Plan Assessment: 1. Acute small right intraparenchymal hemorrhage, and right-sided subdural hematoma. 2. Small right temporal subdural hematoma, likely secondary to trauma 3. Fall with loss of consciousness followed by confusion: Concussion versus s eizure and postictal state 4. History of multiple sclerosis Plan: 1. MRI of the brain reported no evidence for recent infarct. Mild to moderate diffuse cerebral atrophy with advanced nonspecific white matter changes felt to be on the basis of known multiple sclerosis redemonstrated. No significant change from prior MRI from 2019. Small focus of acute intraparenchymal hemorrhage right frontal lobe redemonstrated. Tiny right sided extra-axial acute/subacute hemorrhage again seen. Possible new right-sided mastoiditis, correlate clinically. I personally reviewed MRI of the brain, agree with the findings. There is a very small area of abnormal signal in the right cortical parietal region. I discussed and reviewed with Dr. Hernandez, neuroradiologist, who felt it was a blood vessel, not an acute ischemic stroke. 2. 2-D echocardiogram revealed normal left-ventricular size and systolic function. EF is 55-60%. Left atrial size is normal. 3. Lipid panel with cholesterol 112, LDL 36, HDL 59, triglycerides 81. Continue Lipitor 40 mg daily. Hemoglobin A1c 5.4 4. Vitamin B12 389 borderline, RBC folate 538 normal. We will start B12 oral replacement. 5. CTA of head showed 3 mm subdural hematoma along the right cerebral convexity . Trace subdural hematoma along the anterior falx. 5 mm cortical contusion anterior right frontal lobe. CTA of the neck showed no hemodynamically significant vertebral or carotid artery stenosis. 6. EEG was recommended by Dr. Torres, apparently not ordered. We will initiate EEG. 7. We'll hold antiplatelets or anticoagulants at this time. 8. Repeat CT head in the morning to follow-up on intraparenchymal hemorrhage and right subdural hemorrhage. 9. DVT prophylaxis: SCDs. Time with Patient: Greater than 30 (Spent 45 minutes including reviewing records with the radiologist and coordinating care.)
--- NOTE | 2022-01-27 12:10 | FL ---
EXAMINATION TYPE: FL barium swallow w video DATE OF EXAM: 01/27/2022 COMPARISON: NONE HISTORY: Cerebrovascular accident. The patient was evaluated in the lateral projection during real-time fluoroscopy, during ingestion of barium mixed with solids and liquids. Swallowing was normal. No aspiration or laryngeal penetration . See report from speech pathology. 1.5 minutes fluoroscopy time, no images obtained.
--- NOTE | 2022-01-27 12:46 | CT ---
EXAMINATION TYPE: CT brain wo con DATE OF EXAM: 01/27/2022 COMPARISON: CT brain 01/23/2022 HISTORY: F/U intraparenchymal hemorrhage and right side SDH CT DLP: 1180.9 mGycm Automated exposure control for dose reduction was used. Helical imaging through the brain. FINDINGS: Right-sided subdural hematoma, intraparenchymal hemorrhage show essentially stable appearance. The ri ght frontal focus of hyperintensity is somewhat less dense compared to prior on axial imaging shows a similar appearance and coronal images. Subdural fluid collection is also less dense,, less conspicuo us, coronal images show some prominence of extra-axial fluid spaces somewhat more conspicuous than on prior. No other significant interval change. IMPRESSION: INTERVAL EVOLUTION OF PATIENT'S KNOWN HEMORRHAGES DESCRIBED.
--- NOTE | 2022-01-27 14:31 | XR ---
EXAMINATION TYPE: XR chest 1V portable DATE OF EXAM: 01/27/2022 COMPARISON: Chest x-ray 01/26/2022 HISTORY: Shortness of breath TECHNIQUE: Single frontal view of the chest is obtained. FINDINGS: Findings are similar to prior exam. Basilar density is greater on the right. Strand-like a reas of increased attenuation are noted, interstitium is increased. No evident pneumothorax or sizabl e effusion. Cardiac mediastinal sweat is stable. Aorta is dense. Patient is rotated and there are ove rlying leads. IMPRESSION: Findings similar to prior exam. Basilar atelectasis, correlate to exclude pneumonia, the re is underlying emphysema, interstitial lung disease
--- NOTE | 2022-01-27 15:21 | P.PN ---
Subjective Progress Note Date: 01/27/22 01/27/2022: Patient's was also present today. Patient has history of MS for which she follows up with Dr. Daley. Patient also has history of tobacco use of one and a half pack per day since he was a teenager. Still smokes. Patient does take aspirin 81 mg daily as well, which he has been taking for a long time. Patient does have baseline weakness in the legs from MS. Patient's states that 1 day prior to arrival, on , he woke up and told his that he has an appointment with the doctor at noon and he couldn't move his left leg. He talked and looked very well. He uses walker, but was dragging his left leg. He was fine that whole day. On Wednesday, patient's son called his mom stating that "dad has passed out, and not making sense". He was laying on the floor. When his came over, he was confused, stating that "I must have been drinking because how he fell", although he has not drank alcohol for years. And he was not drinking. He also asked his family if they had put cigarette out although he was only when he was smoking. He knew the people around. He was mixing up his daughter with his . By the time EMS arrived, he was back to baseline, completely lucid. Patient has suffered from a fall about a year ago, but they could not remember if he has any more falls otherwise. Patient's mentions that he has history of seizures about 36 years ago. They were 3 of them, [id number] the same day. She does not remember if he was treated with seizure medications. Patient underwent heart monitoring and was diagnosed with events related to "excessive caffeine". 01/26/2022: Patient was seen for a follow-up. Patient initially seen by Dr. Torres. Please refer to her note for details. It appears patient was admitted for a fall. There was some inconsistency in the documentation, as one report mentioned that she fell and other mentioned that she was found down on the floor unresponsive. When he was found, he was unresponsive for a few minutes. When he was awakened, he was reportedly con fused. By the time EMS arrived, he was back to baseline. He noticed weakness of the left leg. Patient at present denies any headache, no dizziness. Patient states he was diagnosed with MS 6 years ago at age 65. He follows up with Dr. Daley. Patient has numbness of hands and feet for last 3-4 years attributed to his MS. Patient denies any diabetes or alcohol use. Telemetry monitoring showing sinus rhythm. Objective - Vital Signs Vital signs: Vital Signs Temp 98.3 F 01/27/22 08:21 Pulse 68 01/27/22 13:26 Resp 18 01/27/22 13:26 BP 131/81 01/27/22 13:26 Pulse Ox 93 L 01/27/22 13:26 FiO2 Intake & Output 01/26/22 01/27/22 01/27/22 18:59 06:59 18:59 Intake Total 200 Output Total 300 900 Balance -300 -700 Intake: Oral 200 Output: Urine 300 900 Other: Voiding Method Urinal Urinal Urinal - Exam 01/27/2022: Patient is sleeping at this time, snoring. Patient's states that he does snore in sleep for long period of times. 01/26/2022: Patient is alert and awake. Patient knows it is January and said the year was 2016. However he was able to read the current year on the noticed board and said was 2021. He states that he is in the "[facility]" in [facility]. He knows name of current president Mr. Rony Estrada. Speech and language functions are normal. Cranial nerves revealed pupils equal round and reacting, visual weinberg are full, face is symmetric. Tongue protrudes to the midline. Muscle strength testing (right/left) deltoid 5-/4+, biceps 5-/5-, triceps 5/5, shank cementer hand 5-/5-, hip flexion 4-/4-, ankle dorsiflexion 5/5. Reflexes are (right/left) biceps 2/3, brachioradialis 1+/3, knees 2+3/2+3, plantars are upgoing bilaterally. Sensory touch is equal. Cerebellar functions revealed very mild ataxia for [id number] testing bilaterally. - Labs CBC & Chem 7: 01/27/22 07:23 01/27/22 07:23 Labs: Abnormal Lab Results - Last 24 Hours (Table) 01/27/22 01/27/22 Range/Units 07:23 07:23 RBC 3.85 L (4.30-5.90) m/uL Hgb 12.8 L (13.0-17.5) gm/dL Hct 36.4 L (39.0-53.0) % Sodium 128 L (137-145) mmol/L Chloride 97 L (98-107) mmol/L Creatinine 0.54 L (0.66-1.25) mg/dL Glucose 105 H (74-99) mg/dL Total Protein 5.1 L (6.3-8.2) g/dL Albumin 2.8 L (3.5-5.0) g/dL Assessment and Plan Assessment: 1. Acute small right frontal intraparenchymal hemorrhage, and small right-sided subdural hematoma. 2. Small right temporal subdural hematoma, likely secondary to trauma 3. Fall with loss of consciousness followed by confusion: Concussion versus seizure and postictal state 4. History of multiple sclerosis 5. Current heavy Tobacco use Plan: 1. MRI of the brain reported no evidence for recent infarct. Mild to moderate diffuse cerebral atrophy with advanced nonspecific white matter changes felt to be on the basis of known multiple sclerosis redemonstrated. No significant change from prior MRI from 2020. Small focus of acute intraparenchymal hemorrhage right frontal lobe redemonstrated. Tiny right sided extra-axial acute/subacute hemorrhage again seen. Possible new right-sided mastoiditis, correlate clinically. I personally reviewed MRI of the brain, agree with the findings. There is a very small area of abnormal signal in the right cortical parietal region. I discussed and reviewed with Dr. Hernandez, neuroradiologist, who felt it was a blood vessel, not an acute ischemic stroke. 2. 2-D echocardiogram revealed normal left-ventricular size and systolic function. EF is 55-60%. Left atrial size is normal. 3. Lipid panel with cholesterol 112, LDL 36, HDL 59, triglycerides 81. Continue Lipitor 40 mg daily. Hemoglobin A1c 5.4 4. Vitamin B12 389 borderline, RBC folate 538 normal. We will start B12 oral replacement. 5. CTA of head showed 3 mm subdural hematoma along the right cerebral convexity. Trace subdural hematoma along the anterior falx. 5 mm cortical contusion anterior right frontal lobe. CTA of the neck showed no hemodynamically significant vertebral or carotid artery stenosis. 6. EEG was performed today, which was essentially normal. There were some questionable sharply contoured waves on the left, which did not appear clearly epileptiform. Suggest prolonged EEG. Due to presence of subdural hematoma, we will place patient on Keppra 500 mg twice a day for 4 weeks. Once the subdural hematoma has resolved, Keppra may be discontinued, if okay with his primary neurologist Dr. Daley. Recommend follow-up CT head in 10-14 days and then follow up with Dr. Daley. 7. We'll hold aspirin at this time due to ICH. May resume it once ICH has resolved. 8. DVT prophylaxis: SCDs. 9. Recommend complete tobacco cessation.
[2022-01-27] MEDS: FLUTICASONE 50MCG/SPRAY NASAL 16GM EA NOSTRIL SCH (15:42)
[2022-01-27] MEDS: HYDROcodone/APAP 10-325MG 1 EACH TAB PO PRN (20:56)
[2022-01-27] MEDS: ATORVASTATIN 40 MG TAB PO SCH (20:56)
[2022-01-27] MEDS: CYCLOBENZAPRINE 10 MG TAB PO SCH (20:57)
[2022-01-27] MEDS: SODIUM CHLORIDE 0.9% 1,000 ML IV SCH (21:02)
--- NOTE | 2022-01-27 23:17 | EEG ---
DATE OF SERVICE: 01/27/2022 ELECTROENCEPHALOGRAM REPORT PREAMBLE: This is a 71-year-old male with episode of unresponsiveness. Some report that the patient was found on the floor unresponsive. CURRENT MEDICATIONS: 1. Lipitor. 2. Flexeril. 3. Cymbalta. 4. Flonase. 5. [place]. 6. Atrovent. 7. Protonix. 8. Flomax. EEG FINDINGS: This is a 21-channel digital EEG recorded with video component, utilizing 10/20 international system with referential and bipolar montages. Background consists of well-developed, well regulated, [id number] voltage of 8 hertz alpha, seen in bihemispheric region. Background is posterior dominant and reactive to eye opening and closing. Drowsiness was seen with appearance of bilaterally symmetric theta frequency rhythm. Deeper stages of sleep were not seen. Some rare left temporal sharply contoured waves were seen, which did not appear clearly epileptiform. IMPRESSION: This is probably a normal awake and drowsy EEG. Some sporadic left temporal sharply contoured waves were seen, which did not appear clearly epileptiform. Suggest prolonged sleep-deprived EEG, if your suspicion for seizures is high. Clinical correlation recommended. MMODL / IJN: [id number] / [facility]ERN[facility]
--- NOTE | 2022-01-28 05:20 | P.PN ---
Subjective Progress Note Date: 01/27/22 This is a 71-year-old male who was recently admitted with periods of unresponsiveness and possible acute stroke with falls and being closely monitored. Neurology following undergoing extensive neurological workup with a suspected acute infarct in the right temporoparietal region that was noted. Patient did have MRI of the brain and also EEG monitoring. Initially plan was for repeat prolonged EEG although neurology would like to initiate low-dose Keppra and have patient follow-up with his neurologist Dr. Daley in the next few weeks. PT/OT following along with case management and planning for ECF. Patient scheduled to undergo modified barium swallow as patient was high risk for aspirations. Await speech therapy notes. Patient is currently afebrile denies chest pain or shortness of breath. No reports of nausea or vomiting patient tolerating diet. Review of systems: Unable to completely assess as patient is lethargic today. Active Medications Hydrocodone Bitart/Acetaminophen (Hydrocodone/Apap 10-325mg 1 Each Tab) 1 each PO BID PRN PRN Reason: Pain Last Admin: 01/25/22 20:56 Dose: 1 each Atorvastatin Calcium (Atorvastatin 40 Mg Tab) 40 mg PO HS [facility] Last Admin: 01/26/22 22:22 Dose: 40 mg Cyclobenzaprine HCl (Cyclobenzaprine 10 Mg Tab) 10 mg PO HS [facility] Last Admin: 01/26/22 22:22 Dose: 10 mg Duloxetine HCl (Duloxetine Hcl 60 Mg Capsule.) 60 mg PO DAILY [facility] Last Admin: 01/27/22 08:26 Dose: 60 mg Fluticasone Propionate (Fluticasone 50mcg/[place] Nasal 16gm) 2 spray EA NOSTRIL DAILY [facility] Last Admin: 01/27/22 15:42 Dose: 2 spray Formoterol Fumarate (Formoterol Fumarate 20 Mcg/2 Ml Nebu) 20 mcg INHALATION RT-BID [facility] Last Admin: 01/27/22 08:45 Dose: 20 mcg Sodium Chloride (Saline 0.9%) 1,000 mls @ 50 mls/hr IV .Q20H [facility] Last Admin: 01/26/22 23:37 Dose: Not Given Ipratropium [place] (Ipratropium 0.5 Mg/2.5 Ml Nebu) 0.5 mg INHALATION RT-QID [facility] Last Admin: 01/27/22 12:07 Dose: Not Given Pantoprazole Sodium (Pantoprazole 40 Mg Tablet) 40 mg PO BID [facility] Last Admin: 01/27/22 08:26 Dose: 40 mg Tamsulosin HCl (Tamsulosin 0.4 Mg Cap.Er.24h) 0.8 mg PO DAILY [facility] Last Admin: 01/27/22 08:26 Dose: 0.8 mg PHYSICAL EXAMINATION: GENERAL: The patient is alert and oriented x2, lethargic, thin built, elderly appearing male HEENT: Pupils are round and equally reacting to light. EOMI. no scleral icterus. No conjunctival pallor. Normocephalic, atraumatic. No pharyngeal erythema. No thyromegaly. CARDIOVASCULAR: S1 and S2 muffled PULMONARY: diminished breath sounds bilaterally with no wheezing or rhonchi noted. ABDOMEN: soft. Nontender on exam. non-distended, normoactive bowel sounds. No palpable organomegaly. MUSCULOSKELETAL: No joint swelling or deformity. EXTREMITIES: No cyanosis, clubbing, or pedal edema. NEUROLOGICAL: Gross neurological examination did not reveal any focal deficits. Diffuse weakness SKIN: No rashes. Assessment: Acute right frontal lobe intraparenchymal hemorrhage, small foci and tiny right- sided extra-axial subacute hemorrhage Rule out aspiration pneumonia History of multiple sclerosis hypertension Hyperlipidemia Gastroesophageal reflux disease Sleep apnea with CPAP Continued ongoing nicotine dependence Gait dysfunction GI prophylaxis DVT prophylaxis Full code Plan: Recommend to continue with current medications and management with neurological workup in progress. Plan was for repeat EEG prolonged in the a.m. although discuss with neuro and would like to initiate Keppra and have the patient follow-up with his neurologist Dr. Daley within the next 4 weeks. Patient will be continued on statin therapy and Keppra with close outpatient follow-up. P atient also to undergo modified barium swallow which is currently pending. Recommend aspiration precautions and supervision with meals. Patient is extremely weak and evaluated by physical therapy recommending ECF and patient along with family are agreeable. Awaiting insurance authorization and case management following. Will continue to monitor closely. Due to multiple complex medical issues, prognosis is guarded. Possible discharge in 24-48 hours The impression and plan of care has been dictated by Radha Silva, nurse practitioner as directed. Dr. Amauri MD I have performed a history and examination and MDM of this patient, discussed the same with the dictator, and agree with the dictator's assessment and plan as written ,documented as a scribe. Based on total visit time, I have performed more than 50% of the visit. Any additional findings or plans will be noted. Objective - Vital Signs Vital signs: Vital Signs Temp 98.3 F 01/27/22 08:21 Pulse 68 01/27/22 13:26 Resp 18 01/27/22 13:26 BP 131/81 01/27/22 13:26 Pulse Ox 93 L 01/27/22 13:26 FiO2 Intake & Output 01/26/22 01/27/22 01/27/22 18:59 06:59 18:59 Intake Total 200 Output Total 300 900 Balance -300 -700 Intake: Oral 200 Output: Urine 300 900 Other: Voiding Method Urinal Urinal Urinal - Labs CBC & Chem 7: 01/27/22 07:23 01/27/22 07:23 Labs: Abnormal Lab Results - Last 24 Hours (Table) 01/27/22 01/27/22 Range/Units 07:23 07:23 RBC 3.85 L (4.30-5.90) m/uL Hgb 12.8 L (13.0-17.5) gm/dL Hct 36.4 L (39.0-53.0) % Sodium 128 L (137-145) mmol/L Chloride 97 L (98-107) mmol/L Creatinine 0.54 L (0.66-1.25) mg/dL Glucose 105 H (74-99) mg/dL Total Protein 5.1 L (6.3-8.2) g/dL Albumin 2.8 L (3.5-5.0) g/dL
[2022-01-28 06:51] VITALS: TEMP 98.1
[2022-01-28 08:12] VITALS: RESP 16
[2022-01-28] MEDS: FORMOTEROL FUMARATE 20 MCG/2 ML NEBU INHALATION SCH (08:42)
[2022-01-28] MEDS: IPRATROPIUM 0.5 MG/2.5 ML NEBU INHALATION SCH ×3 (08:42→15:41)
[2022-01-28] MEDS ORDERED: levETIRAcetam 500 MG TAB PO SCH (09:00)
[2022-01-28] MEDS: PANTOPRAZOLE 40 MG TABLET PO SCH (09:26)
[2022-01-28] MEDS: FLUTICASONE 50MCG/SPRAY NASAL 16GM EA NOSTRIL SCH (09:26)
[2022-01-28] MEDS: TAMSULOSIN 0.4 MG CAP.ER.24H PO SCH (09:26)
[2022-01-28] MEDS: DULoxetine HCL 60 MG CAPSULE.DR PO SCH (09:26)
[2022-01-28 11:06] VITALS: BP 142/80
[2022-01-28 12:35] VITALS: PULSE 82
--- NOTE | 2022-01-28 14:27 | P.DS ---
Providers Date of admission: 01/23/22 20:08 Expected date of discharge: 01/28/22 Attending physician: Artie Bustamante Consults: 01/23/22 20:08 Consult Physician Urgent Consulting Provider: Harmeet Frias Consult Reason/Comments: CVA, unresponsive episode, parenchymal contusion, tiny subdural Do you want consulting provider notified?: Yes Primary care physician: Jerson Arcos Hospital Course: Final diagnosis Acute right frontal lobe intraparenchymal hemorrhage, small foci and tiny right- sided extra-axial subacute hemorrhage History of multiple sclerosis hypertension Hyperlipidemia Gastroesophageal reflux disease Sleep apnea with CPAP Continued ongoing nicotine dependence Gait dysfunction GI prophylaxis DVT prophylaxis Full code Discharge disposition Patient is being discharged in a stable condition with guarded prognosis to [facility]. Patient will follow-up with Dr. Jeffrey in the outpatient setting upon discharge. Patient is to follow-up with his neurologist Dr. Daley in one week. Patient will be continued on Keppra 500 mg twice daily for the next 4 weeks and continue to hold aspirin until Dr. Daley follow-up. Recommend repeat CT of the brain without contrast in the next 10-12 days prior to neurology visit. Total time taken is greater than 35 minutes. Hospital course This is a 71-year-old male who was recently admitted with a period of unresponsiveness and possible acute stroke with falls and increased fatigue and was being closely monitored. Patient underwent extensive neurological workup with suspected acute infarct in the right temporoparietal region. Patient did have EEG which was abnormal and patient being started on Keppra 500 mg twice daily for 4 weeks and strongly recommending [address] Daley follow-up his neurologist in the next 1-[address] of the brain to monitor for ICH. Aspirin is currently on hold at this time. Patient also was having some questionable coughing with eating possible aspiration and was seen and evaluated by speech therapy recommending dysphagia ground diet and aspiration precautions. Patient has been cleared for discharge to [facility] as patient continues with weakness. Currently no reports of chest pain, shortness of breath, or palpitations. Patient is afebrile. No reports of nausea or vomiting and patient is tolerating diet. Patient will be going to [facility] today. Guarded prognosis. Physical exam: Gen: This is a 71-year-old male awake, alert and oriented 2-3, thin built, ill- appearing HEENT: Head is atraumatic, normocephalic. Pupils equal, round. Sclerae is anicteric. NECK: Supple. No JVD. No lymphadenopathy. No thyromegaly. LUNGS: Diminished breath sounds bilaterally with some scattered rhonchi noted. No intercostal retractions. HEART: S1, S2 are muffled ABDOMEN: Soft. Bowel sounds are present. No masses. No tenderness. EXTREMITIES: No pedal edema. No calf tenderness. NEUROLOGICAL: Patient is awake, alert and oriented x3. Cranial nerves 2 through 12 are grossly intact. Diffusely weak Please refer to medication reconciliation sheet for a list of medications. The impression and plan of care has been dictated by Radha Silva, Nurse Practitioner as directed. Dr Baugh. MD I have performed a history and examination and MDM of this patient, discussed the same with the dictator, and agree with the dictator's assessment and plan as written ,documented as a scribe. Based on total visit time, I have performed more than 50% of the visit. Patient Condition at Discharge: Fair Plan - Discharge Summary Discharge Rx Participant: No New Discharge Prescriptions: New Ipratropium Nebulized [Atrovent Nebulized 0.2 MG/ML] 0.5 mg INHALATION RT-QID ml levETIRAcetam [Keppra] 500 mg PO Q12HR tab Continue Omeprazole [PriLOSEC] 20 mg PO BID Atorvastatin Calcium [Lipitor] 40 mg PO HS Loratadine [Claritin] 10 mg PO DAILY Fluticasone Nasal [place] [Flonase Nasal [place]] 2 spray EA NOSTRIL DAILY Umeclidinium Brm/Vilanterol Tr [Anoro Ellipta 62.5-25 Mcg INH] 1 puff INHALATION RT-DAILY Tamsulosin HCl [Flomax] 0.8 mg PO DAILY HYDROcodone/APAP 10-325MG [[place]went 10-325] 1 tab PO BID PRN #6 tab PRN Reason: Pain DULoxetine HCL [Cymbalta] 60 mg PO DAILY Cyclobenzaprine [Flexeril] 10 mg PO HS Discontinued Ibuprofen [Motrin] 800 mg PO BID PRN PRN Reason: Pain Potassium Chloride ER [K-Dur 10] 10 meq PO DAILY Furosemide [Lasix] 20 mg PO DAILY Discharge Medication List Atorvastatin Calcium [Lipitor] 40 mg PO HS 11/30/15 [History] Omeprazole [PriLOSEC] 20 mg PO BID 11/30/15 [History] Cyclobenzaprine [Flexeril] 10 mg PO HS 01/23/22 [History] DULoxetine HCL [Cymbalta] 60 mg PO DAILY 01/23/22 [History] Fluticasone Nasal [place] [Flonase Nasal [place]] 2 spray EA NOSTRIL DAILY 01/23/22 [History] Loratadine [Claritin] 10 mg PO DAILY 01/23/22 [History] Tamsulosin HCl [Flomax] 0.8 mg PO DAILY 01/23/22 [History] Umeclidinium Brm/Vilanterol Tr [Anoro Ellipta 62.5-25 Mcg INH] 1 puff INHALATION RT-DAILY 01/23/22 [History] HYDROcodone/APAP 10-325MG [[place] 10-325] 1 tab PO BID PRN #6 tab 01/28/22 [Rx] Ipratropium Nebulized [Atrovent Nebulized 0.2 MG/ML] 0.5 mg INHALATION RT-QID ml 01/28/22 [Rx] levETIRAcetam [Keppra] 500 mg PO Q12HR tab 01/28/22 [Rx] Follow up Appointment(s)/Referral(s): Isrrael Arthur MD [Primary Care Provider] - 1-2 days Klaus Daley DO [STAFF PHYSICIAN] - 1 Week Ambulatory/Diagnostic Orders: Basic Metabolic Panel [LAB.AMB] Time Frame: 3 Days, Location: None Selected Activity/Diet/Wound Care/Special Instructions: Patient is going to [facility] on [employer] Activity as tolerated Per neurology recommend to follow-up with Dr. Daley in the next 1-2 weeks. Patient being started on Keppra 500 mg twice daily for [address] Daley follow-up. Recommend follow-up CT of the head in 10-14 days prior to following up with Dr. Daley for reevaluation Patient will be holding aspirin at this time secondary to hemorrhage and may resume after clearance with Dr. Daley follow-up Continue aspiration precautions with head of the bed elevated 30-45 and continue with dysphagia ground diet and aspiration precautions including supervision with meals Recommend repeat BMP in 2-3 days to monitor sodium levels Discharge Disposition: TRANSFER TO SNF/ECF
--- NOTE | 2022-02-05 17:08 | CDI ---
Documentation Clarification Form Date: 02/05/2022 04:30:42 PM From: Mansi Diggs Phone: Admit Date: 01/23/2022 08:08:00 PM Pt. Name: Callie Álvarez Visit Number: [id number] Discharge Date: 01/28/2022 03:39:00 PM ATTENTION: The Clinical Documentation Specialists (CDI) and [facility] Coding Staff appreciate your assistance in clarifying documentation. Please respond to the clarification below the line at the bottom and electronically sign. The CDI & [facility] Coding staff will review the response and follow-up if needed. Please note: Queries are made part of the Legal Health Record. If you have any questions, please contact the author of this message via ITS. Dr. Syed Baugh Infarct in the Rt temporal parietal lesion is documented per H&P which may lack sufficient clinical evidence/support in the medical record. Additional clarification is requested. History/Risk Factors: 71yo F, Rt frontal lobe intraparenchymal hemorrhage, small foci and tiny right-sided extra-axial sub hemorrhage. MS, HTN, HLD. GERD, HERB, smoker, Gait dysfunction, Hx CVA Clinical Indicators: MRI of the brain reported no evidence for recent infarct. Small right-sided subdural hematoma without change. Chronic small vessel ischemia without change. No evidence of cerebral parenchymal hemorrhage. No MRI evidence for recent infarct. Mild to moderate diffuse cerebral atrophy with advanced nonspecific white matter changes felt to be on basis of known multiple sclerosis redemonstrated. No significant change from prior MRI 2020. Small focus of intraparenchymal hemorrhage Rt frontal lobe redemonstrated. Tiny Rt sided extra-axial /sub hemorrhage again seen. Possible new right-sided mastoiditis, correlate clinically. Treatment: Pt. underwent extensive neurological workup with suspected infarct in the Rt temporoparietal region. Pt. did have EEG which was abnormal and Pt. being started on Keppra 500 mg twice daily for [address] Daley follow-up his neurologist in the next 1-[address] of the brain to monitor for ICH. Aspirin is currently on hold at this time. Please clarify if infarct in the Rt temporal parietal lesion is a valid diagnosis? [ ] Yes, infarct in the RT temporal parietal lesion is present as evidence by (additional clinical support): [x ] No, infarct in the Rt temporal parietal lesion is ruled out [ ] Other (please specify diagnosis) [ ] Unable to determine (Template Last Revised: June 2020) MTDD
== END 2022-01-28 15:39 | DRG 83 ==
LOC: EC 12:48 → 3SCARD 20:08
PROVIDERS: ADMIT Internal Medicine; ATTEND Internal Medicine
DX: S06.5XAA Traumatic subdural hemorrhage with loss of consciousness status unknown, initial encounter (principal); E87.1 Hypo-osmolality and hyponatremia; S06.2X1A Diffuse traumatic brain injury with loss of consciousness of 30 minutes or less, initial encounter; I10 Essential (primary) hypertension; G35 Multiple sclerosis; J43.9 Emphysema, unspecified; I08.1 Rheumatic disorders of both mitral and tricuspid valves; H70.91 Unspecified mastoiditis, right ear; E86.1 Hypovolemia; E78.5 Hyperlipidemia, unspecified; G47.33 Obstructive sleep apnea (adult) (pediatric); F17.210 Nicotine dependence, cigarettes, uncomplicated; K21.9 Gastro-esophageal reflux disease without esophagitis; E87.70 Fluid overload, unspecified; W19.XXXA Unspecified fall, initial encounter; R27.0 Ataxia, unspecified; Z20.822 Contact with and (suspected) exposure to COVID-19; Z28.310 Unvaccinated for COVID-19; Z79.51 Long term (current) use of inhaled steroids; Z95.1 Presence of aortocoronary bypass graft; Z86.73 Personal history of transient ischemic attack (TIA), and cerebral infarction without residual deficits; Z79.899 Other long term (current) drug therapy
CPT/HCPCS: 36415; 70450; 70496; 70498; 70551; 71045; 74230; 80048; 80053; 80061; 81001; 82607; 82747; 83036; 83735; 84443; 84484; 85025; 85610; 85730; 87502; 87635; 93005; 93306; 94640; 94760; 95819; 99291

== ENCOUNTER → 2022-02-13 | Outpatient (CLI) | payer BC, MEDICARE ==
--- NOTE | 2022-02-13 13:39 | CT ---
EXAMINATION TYPE: CT brain wo con DATE OF EXAM: 02/13/2022 COMPARISON: 01/27/2022 HISTORY: Cerebral infarction CT DLP: [address] of the brain was performed. The ventricles, basal cisterns and sulci overlying the cerebral convexities demonstrate mild enlargem ent. Previously noted small right frontal subdural hematoma and small intraparenchymal component have reso lved. There is no evidence for acute intracranial hemorrhage or sulcal effacement. There is decreased attenuation about the periventricular white matter and deep white matter of both c erebral hemispheres, compatible with chronic small vessel ischemia. Differential diagnosis does inclu de demyelination. No mass effects are seen.No midline shift. Osseous calvarium is intact. If symptoms persist consider MRI. IMPRESSION: 1. Age related atrophic and chronic small vessel ischemic change without acute intracranial process s een at this time. 2.Previously noted small right frontal subdural hematoma and small intraparenchymal component have re solved. There is no evidence for acute intracranial hemorrhage
== END | disposition home or self-care (01) ==
LOC: RADCTMAIN 12:33
PROVIDERS: ATTEND Hospitalist
DX: G31.1 Senile degeneration of brain, not elsewhere classified (principal); I67.82 Cerebral ischemia
CPT/HCPCS: 70450

== ENCOUNTER → 2022-04-09 | Outpatient (CLI) | payer BC, MEDICARE ==
--- NOTE | 2022-04-09 14:43 | XR ---
EXAMINATION TYPE: XR ribs RT, XR chest 2V DATE OF EXAM: 04/09/2022 2:05 PM INDICATION: Patient age:Male; 71 years old; Reason for study: Z91.81 HISTORY OF FALLING; COMPARISON: None TECHNIQUE: Frontal and oblique views of the right ribs with frontal chest radiograph. Frontal view of the chest. FINDINGS: Lungs/Pleura: There is no evidence of focal consolidation, or pneumothorax. Blunting of the right co stophrenic angle. Pulmonary vascularity: Unremarkable. Heart/mediastinum: Cardiomediastinal silhouette is unremarkable. Musculoskeletal/ribs: There at least 2 right rib fractures involving ribs 7 and 8 with mild displacem ent. Additional fractures of right upper ribs 3 and 4 are also present. No definitive left-sided rib fractures. IMPRESSION : 1. Multiple right-sided rib fractures involving at least 3, 4 and 7 and 8. 2. Small right pleural effusion could be secondary to #1.
== END | disposition home or self-care (01) ==
LOC: RADXRMAIN 13:33
PROVIDERS: ATTEND Family Medicine
DX: S22.41XA Multiple fractures of ribs, right side, initial encounter for closed fracture (principal); Z91.81 History of falling
CPT/HCPCS: 71046

== ENCOUNTER → 2022-04-09 | Outpatient (CLI) | payer BC, MEDICARE ==
[2022-04-09 22:29] LABS: Basophils # (A) 0.05 X 10*3/uL (0.00-0.10); Basophils % (A) 0.6 %; Eosinophils # (A) 0.32 X 10*3/uL (0.04-0.35); Eosinophils % (A) 3.7 %; HCT 43.2 % (39.6-50.0); HGB 14.3 g/dL (13.0-17.0); Immature Grans, Automated 0.5 %; Lymphocytes % (A) 15.2 %; MCHC 33.1 g/dL (32.0-37.0); MCV 93.5 fL (80.0-97.0); Monocytes # (A) 1.02 X 10*3/uL (0.20-1.00); Monocytes % (A) 11.9 %; NRBC Per 100 WBC 0 /100 WBCS (0.0-0.0); Neutrophils # (A) 5.84 X 10*3/uL (1.80-7.70); Neutrophils % (A) 68.1 %; Platelet Count 187 X 10*3/uL (140-440); RBC 4.62 X 10*6/uL (4.40-5.60); RDW 13.3 % (11.5-14.5); WBC 8.57 X 10*3/uL (4.50-10.00)
[2022-04-09 23:36] LABS: African American GFR (CKD) 107.2 (60.0-200.0); Albumin/Globulin Ratio 1.76 (1.60-3.17); Anion Gap 10.3 mmol/L (10.00-18.00); BUN/Creat Ratio 16.21 Ratio (12.00-20.00); Blood Urea Nitrogen 12.3 mg/dL (9.0-27.0); Calcium 10.8 mg/dL (8.7-10.3); Carbon Dioxide 25.3 mmol/L (20.0-27.5); Globulin 2.3 g/dL (1.6-3.3); Non-African American GFR(CKD) 92.5 (60.0-200.0); Potassium 4.2 mmol/L (3.5-5.5); Prostate Specific Antigen 0.1 ng/mL (0.00-6.50); Total Bilirubin 0.4 mg/dL (0.30-1.20); Total Protein 6.3 g/dL (6.2-8.2)
== END | disposition home or self-care (01) ==
LOC: LABWHC1 14:12
PROVIDERS: ATTEND Family Medicine
DX: Z12.5 Encounter for screening for malignant neoplasm of prostate (principal); E78.5 Hyperlipidemia, unspecified; E55.9 Vitamin D deficiency, unspecified; Z86.73 Personal history of transient ischemic attack (TIA), and cerebral infarction without residual deficits
CPT/HCPCS: 36415; 80053; 82306; 84153; 85025

== ENCOUNTER 2023-04-28 10:29 | Day surgery (SDC) | payer BC, MEDICARE ==
[~2023-04-28 10:29] MED LIST: ALPRAZolam 0.25 MG TAB PO PRN; ALPRAZolam 0.5 MG TAB PO PRN; HEPARIN SODIUM,PORCINE (1 ML) 2,500 UNIT in SODIUM CHLORIDE 0.9% 250 ML IRRIGATION PRN; HEPARIN SODIUM,PORCINE 10,000 UNIT in SODIUM CHLORIDE 0.9% 1,000 ML IRRIGATION PRN; NITROGLYCERIN SL TABS 0.4 MG TAB SUBLINGUAL PRN
[2023-04-28] MEDS: SODIUM CHLORIDE 0.9% 1,000 ML IV ONE (11:01)
[2023-04-28 11:48] LABS: Basophils # (A) 0.1 k/uL (0-0.2); Basophils % (A) 1 %; Eosinophils # (A) 0.3 k/uL (0-0.7); Eosinophils % (A) 4 %; HCT 45.8 % (39.0-53.0); Lymphocytes # (A) 1.4 k/uL (1.0-4.8); Lymphocytes % (A) 18 %; MCH 31.4 pg (25.0-35.0); MCHC 32.8 g/dL (31.0-37.0); MCV 95.8 fL (80.0-100.0); Mean Platelet Volume 7.3; Monocytes # (A) 0.6 k/uL (0-1.0); Monocytes % (A) 7 %; Neutrophils # (A) 5.3 k/uL (1.3-7.7); Neutrophils % (A) 69 %; Platelet Count 164 k/uL (150-450); RBC 4.78 m/uL (4.30-5.90); RDW 13.4 % (11.5-15.5); WBC 7.8 k/uL (3.8-10.6)
[2023-04-28 12:05] LABS: African American GFR (CKD) >90 (>60 ml/min/1.73 sqM); Anion Gap 3 mmol/L; Blood Urea Nitrogen 22 mg/dL (9-20); Calcium 10.5 mg/dL (8.4-10.2); Carbon Dioxide 31 mmol/L (22-30); Chloride 102 mmol/L (98-107); Glucose 101 mg/dL (74-99); Non-African American GFR(CKD) >90 (>60 ml/min/1.73 sqM); Potassium 4.5 mmol/L (3.5-5.1); Sodium 136 mmol/L (137-145)
[2023-04-28] MEDS: MIDAZOLAM 2 MG/2 ML VIAL IVP ONE ×2 (14:08→14:39)
[2023-04-28] MEDS: LIDOCAINE 1% INJ 10MG/ML (20 ML MDV) SQ ONE (14:11)
[2023-04-28] MEDS: VERAPAMIL SYRINGE (5 MG/10 ML) INTRAARTER ONE (14:13)
[2023-04-28] MEDS ORDERED: HEPARIN SODIUM 1,000 UN/ML (10ML VL) ONE (14:19)
[2023-04-28] MEDS ORDERED: CLOPIDOGREL 75 MG TAB ONE (14:24)
[2023-04-28] MEDS: CLOPIDOGREL 75 MG TAB PO ONE (14:27)
[2023-04-28] MEDS ORDERED: fentaNYL (PF) 50 MCG/ML 2 ML AMP ONE (14:33)
[2023-04-28] MEDS: fentaNYL (PF) 50 MCG/ML 2 ML AMP IVP ONE (14:34)
[2023-04-28] MEDS: IOPAMIDOL-370 100ML BTL INJ ONE ×2 (14:48→14:50)
[2023-04-28] MEDS ORDERED: RX INFO: IV CONTRAST WAS GIVEN 1 EACH MISC MISCELLANE PRN (15:04)
[2023-04-28] MEDS ORDERED: NITROGLYCERIN SL TABS 0.4 MG TAB SUBLINGUAL PRN (15:04)
[2023-04-28] MEDS ORDERED: MAG HYDROX/AL HYDROX/SIMETH 30 ML CUP PO PRN (15:04)
[2023-04-28] MEDS ORDERED: ZOLPIDEM 5 MG TAB PO PRN (15:04)
[2023-04-28] MEDS ORDERED: ATROPINE SULFATE 0.1 MG/ML 10ML SYRINGE IV PRN (15:04)
--- NOTE | 2023-04-28 15:10 | P.PCN ---
Date of Procedure: 04/28/23 Operative Findings: CARDIAC CATHETERIZATION AND PERCUTANEOUS CORONARY INTERVENTION PERFORMING PHYSICIAN: Boaz Weems MD, VI PROCEDURE PERFORMED: 1. Selective right and left coronary angiogram 2. Successful stenting of distal RCA and proximal RCA using 50 by 33 mm and 50 by 33 mm Xience JESSICA with an excellent angiographic results 3. Adjunctive use intravascular imaging 4. Ultrasound guided access of the right radial artery INDICATION: The patient is a 72-year-old gentleman with limited functional capacity who scheduled to undergo a heart catheterization after a stress test came in to be abnormal showing large area of reversibility inferiorly as a preop cardiac assessment before noncardiac surgery COMPLICATION: None APPROACH: Right radial artery LEVEL OF SEDATION: Moderate with the sedation time off 42 minutes PROCEDURE DESCRIPTION: After obtaining an informed consent the patient was brought to the cardiac dairy and food laboratory assistant. The right radial artery was cannulated using micro-rupture technique under ultrasound guidance the micro-puncture wire passed easily then I placed a 6- Persian sheath at the right radial artery. After that I did selective right and left coronary angiogram using JR4 and JL 3.5 catheters. After that I did intervene on the right coronary artery B the procedure was completed was no complication SELECTIVE CORONARY ANGIOGRAM: The right coronary artery: Large caliber vessel and a dominant vessel and calcified vessel was critical lesion in the proximal and midportion Left main: Is angiographically normal. Bifurcates into an LCx and LAD The left circumflex: Large caliber vessel nondominant vessel. The LCx is angiographically normal and gives rises into the first and second obtuse marginal branches both appeared to be angiographically normal The left anterior descending artery: Large caliber vessel. The proximal LAD appears to be normal. The mid and distal LAD are normal. LAD gives rise into a large diagonal branch which seems to be angiographically normal PCI OF THE RCA: Anticoagulation was initiated using heparin with continuous ACT monitoring rate subsequently I did engage RCA using an a.l. 0.75 guiding catheter. After that I wired using a run-through wire. After that I did intravascular ultrasound showed the diameter around 5 mm the artery was not very calcified. Predilatation was performed using 3.5 mm noncompliant balloon in the mid and proximal right coronary artery with after that in the mid RCA deployed 5.0 x 33 mm and the proximal RCA 5.0 x 33 mm as well. Foci dictation initially was perfo rmed using 5 mm subsequently 5.5 mm balloon after the intravascular imaging revealed that the stent was not well expanded. Final angiogram showed a good angiographic results and the procedure was completed was no complication. The patient tolerated the procedure very well CONCLUSION: Critical disease involving the mid and proximal RCA. I performed successful stenting of the mid and proximal RCA as described above POSTPROCEDURE MANAGEMENT: 1. Dual antiplatelet therapy using aspirin and Plavix for 6-12 month 2. Aggressive cholesterol control 3. Follow-up with the patient
[2023-04-28] MEDS ORDERED: hydrALAZINE HCL 20 MG/ML 1 ML VIAL IVP PRN (15:31)
[2023-04-28] MEDS: ASPIRIN 325 MG TAB PO ONE (16:44)
[2023-04-28] MEDS: SODIUM CHLORIDE 0.9% 1,000 ML in EMPTY BAG 1 BAG IV SCH ×2 (16:45→19:56)
[2023-04-28] MEDS: ATORVASTATIN 80 MG TAB PO SCH (20:28)
[2023-04-29 06:02] LABS: African American GFR (CKD) >90 (>60 ml/min/1.73 sqM); Non-African American GFR(CKD) >90 (>60 ml/min/1.73 sqM)
[2023-04-29] MEDS: CLOPIDOGREL 75 MG TAB PO SCH (08:37)
[2023-04-29] MEDS: TAMSULOSIN 0.4 MG CAP.ER.24H PO SCH (08:37)
[2023-04-29] MEDS: CHOLECALCIFEROL 25 MCG (1000 IU) TABLET PO SCH (08:37)
[2023-04-29] MEDS: ASPIRIN 81 MG PO SCH (08:37)
[2023-04-29 08:54] VITALS: BP 166/86; PULSE 100; RESP 18; TEMP 98.9
[2023-04-29] MEDS: HYDROcodone/APAP 10-325MG 1 EACH TAB PO ONE (09:56)
--- NOTE | 2023-04-29 13:14 | P.DS ---
Providers Attending physician: Boaz Weems Consults: 04/28/23 15:04 Consult Physician Routine Consulting Provider: [facility] Consult Reason/Comments: Post Interventional patient Do you want consulting provider notified?: Already Contacted Primary care physician: [facility] Course: The patient is a 72-year-old gentleman who underwent yesterday successful stenting of the RCA. The patient was seen and evaluated this morning. He is asymptomatic. He is hemodynamically stable. The patient is going to be discharged home on dual antiplatelet therapy and statin and I will follow-up with the patient next week in the office Plan - Discharge Summary Discharge Rx Participant: No New Discharge Prescriptions: New Clopidogrel [Plavix] 75 mg PO DAILY #90 tablet Atorvastatin Calcium [Lipitor] 40 mg PO DAILY #90 tab Continue Tamsulosin HCl [Flomax] 0.4 mg PO DAILY Cholecalciferol [Vitamin D3 (25 Mcg = 1000 Iu)] 25 mcg PO DAILY Aspirin [Adult Low Dose Aspirin EC] 162 mg PO DAILY Discharge Medication List Tamsulosin HCl [Flomax] 0.4 mg PO DAILY 01/23/22 [History] Aspirin [Adult Low Dose Aspirin EC] 162 mg PO DAILY 04/27/23 [History] Cholecalciferol [Vitamin D3 (25 Mcg = 1000 Iu)] 25 mcg PO DAILY 04/27/23 [History] Atorvastatin Calcium [Lipitor] 40 mg PO DAILY #90 tab 04/29/23 [Rx] Clopidogrel [Plavix] 75 mg PO DAILY #90 tablet 04/29/23 [Rx] Follow up Appointment(s)/Referral(s): Boaz Weems MD [STAFF PHYSICIAN] - 1 Week (THE OFFICE WILL CALL YOU WITH AN APPOINTMENT DATE AND TIME) Patient Instructions/Handouts: Moderate Sedation (DC), After Radial Heart Catheterization (GEN) Activity/Diet/Wound Care/Special Instructions: *NO LIFTING, PUSHING, OR PULLING ANYTHING OVER 5 POUND FOR 5 DAYS *NO DRIVING FOR 3 DAYS *YOU CAN REMOVE YOUR DRESSING TOMORROW BUT DO NOT SUBMERSE YOUR PUNCTURE SITE IN WATER FOR A FEW DAYS TO PREVENT INFECTION - SO NO TUB BATHS, POOLS, HOT TUBS, DISHES...ETC *ANY SIGNS OF BLEEDING (HARDNESS, SWELLING, OR EXCESSIVE BRUISING) HOLD DIRECT PRESSURE ON YOUR PUNCTURE SITE AND COME TO THE NEAREST EMERGENCY ROOM TO GET YOUR PUNCTURE SITE LOOKED AT - DO NOT DRIVE YOURSELF! EITHER CALL EMS OR HAVE SOMEONE DRIVE YOU!
[2023-04-29 14:16] VITALS: BMI 20.5
== END 2023-04-29 14:30 | disposition home or self-care (01) ==
LOC: CATHCVL 10:29 → 6NMEDSUR 14:52 → CATHCVL 04-29 14:30
PROVIDERS: ATTEND Internal Medicine Interventional Cardiology
DX: Z01.810 Encounter for preprocedural cardiovascular examination (principal); G35 Multiple sclerosis; I73.9 Peripheral vascular disease, unspecified; E78.5 Hyperlipidemia, unspecified; Z79.82 Long term (current) use of aspirin; Z79.899 Other long term (current) drug therapy
CPT/HCPCS: 99152; 99153 ×2; 92978; 93454; 80048; 82565; 85025; C9600; C1769 ×2; C1894; C1753; C1874; C1887; C1725 ×3; J2250; J2001; J3010; J1644; Q9967

== ENCOUNTER 2023-04-30 15:21 | Inpatient (IN) | payer BC, MEDICARE ==
--- NOTE | 2023-04-30 17:29 | XR ---
EXAMINATION TYPE: XR chest 2V DATE OF EXAM: 04/30/2023 COMPARISON: NONE HISTORY: Shortness of breath TECHNIQUE: Frontal and lateral views of the chest are obtained. FINDINGS: Scattered senescent parenchymal changes noted. Hyperinflation compatible with COPD. No evidence for infiltrate. No evidence for atelectasis. Heart size is stable. Mediastinal structures are stable and grossly unremarkable. No evidence for hilar prominence. Degenerative changes dorsal spine. IMPRESSION: 1. No evidence for acute pulmonary disease.
[2023-04-30 18:21] LABS: Basophils % (A) 1 %; Eosinophils # (A) 0.2 k/uL (0-0.7); Eosinophils % (A) 3 %; HCT 43.7 % (39.0-53.0); HGB 14.5 gm/dL (13.0-17.5); Lymphocytes # (A) 1.1 k/uL (1.0-4.8); Lymphocytes % (A) 13 %; MCH 31.7 pg (25.0-35.0); MCHC 33.3 g/dL (31.0-37.0); MCV 95.4 fL (80.0-100.0); Mean Platelet Volume 7.2; Monocytes % (A) 11 %; Neutrophils # (A) 6.1 k/uL (1.3-7.7); Neutrophils % (A) 71 %; Platelet Count 171 k/uL (150-450); RBC 4.57 m/uL (4.30-5.90); RDW 13.3 % (11.5-15.5); WBC 8.6 k/uL (3.8-10.6)
[2023-04-30 18:35] LABS: ALT 28 U/L (4-49); AST 85 U/L (17-59); African American GFR (CKD) >90 (>60 ml/min/1.73 sqM); Albumin 3.6 g/dL (3.5-5.0); Alkaline Phosphatase 108 U/L (38-126); Anion Gap 4 mmol/L; Blood Urea Nitrogen 19 mg/dL (9-20); Calcium 10.5 mg/dL (8.4-10.2); Carbon Dioxide 26 mmol/L (22-30); Chloride 106 mmol/L (98-107); Glucose 131 mg/dL (74-99); Non-African American GFR(CKD) >90 (>60 ml/min/1.73 sqM); Potassium 4.1 mmol/L (3.5-5.1); Sodium 136 mmol/L (137-145); Total Bilirubin 0.4 mg/dL (0.2-1.3); Total Protein 6.3 g/dL (6.3-8.2)
[2023-04-30 18:38] LABS: NT-Pro-B-Type Natriuretic Pept 690 pg/mL
[2023-04-30 19:13] LABS: INR 0.9 (<1.2); Prothrombin Time 10.1 sec (10.0-12.5)
--- NOTE | 2023-04-30 19:44 | CT ---
EXAMINATION TYPE: CT brain michelleine wo con DATE OF EXAM: 04/30/2023 COMPARISON: 02/13/2022 HISTORY: Left side weakness. s/p heart cath. CT DLP: 1380.[address] of the brain was performed. The ventricles, basal cisterns and sulci overlying the cerebral convexities demonstrate mild enlargem ent. There is no evidence for intracranial hemorrhage or sulcal effacement. There is decreased attenuatio n about the periventricular white matter and deep white matter of both cerebral hemispheres, compatib le with chronic small vessel ischemia. No mass effects are seen. If symptoms persist consider MRI. Osseous calvarium is intact. IMPRESSION: 1. Age related atrophic and chronic small vessel ischemic change without acute intracranial process seen at this time. CT Cervical Spine: Unenhanced CT of the cervical spine was performed with bone and soft tissue window settings submitted . Coronal and sagittal reconstruction is obtained. There is normal alignment and prevertebral soft tissues. No evidence for acute cervical fracture . Scattered degenerative disc disease and spondylosis. Biapical scarring. IMPRESSION: 1. No evidence for acute fracture or subluxation of the cervical spine.
--- NOTE | 2023-04-30 20:00 | CT ---
EXAMINATION TYPE: CT angio head neck DATE OF EXAM: 04/30/2023 COMPARISON: None HISTORY: Left side weakness. s/p heart cath. CT DLP: 427.2 mGycm CONTRAST: Performed with IV Contrast, patient injected with 65ml mL of Isovue 370. Combination Contrast CTA cervical carotids and [place] CTA cervical carotids with 3-D recons truction Contrast CTA of the cervical carotids was performed 3-D reconstruction imaging obtained at a separate workstation. Right carotid system: Mild plaque is seen of the right common carotid artery. There is mild plaque a lso noted at the carotid bulb and proximal ICA. No significant diameter reduction. ECA is patent. Right vertebral artery appears unremarkable. Left carotid system: Mild plaque is seen of the left common carotid artery. There is mild plaque als o noted at the carotid bulb and proximal ICA. No significant diameter reduction. ECA is patent. Lef t vertebral artery appears unremarkable. IMPRESSION: 1. No significant diameter reduction to account for the patient's symptoms. CTA [place] with 3-D reconstruction Contrast CTA of the [place] was performed 3-D reconstruction imaging obtained at a separate workstation. Vertebrobasilar system as well as intracranial portions of the internal carotid arteries and their ma elbert tributaries are patent. I do not see evidence for sizable aneurysm or vascular malformation. Pl ease note MRI provides greater sensitivity and specificity. Visualized brain appears grossly unremar kable. IMPRESSION: 1. No significant abnormality. NASCET criteria was used in interpretation of this exam?
--- NOTE | 2023-04-30 20:10 | ED ---
Fall HPI - General Chief Complaint: Fall Stated Complaint: Weakness Time Seen by Provider: 04/30/23 16:00 Source: patient, EMS Mode of arrival: EMS - History of Present Illness Initial Comments: 72-year-old male with past history of CVA, coronary disease presents to the emergency department with weakness. Patient had a heart cath on the which was performed as an outpatient procedure due to an abnormal stress test. He had 2 stents placed. Patient was discharged home yesterday. Since he has been home the patient has been unable to ambulate on his own. The states that the patient has required 2 people to assist him. He has had multiple falls because of the weakness. He denies any injuries. He did strike his head. Patient did start taking blood thinners. Patient has noted that his left upper and lower extremity are weak. He does have a previous history of CVA and does have some residual left-sided weakness however states that this found in comparison. No speech deficits. No visual changes. is looking for placement as it is too hard to take care of the patient at this time. No fevers. No other alleviating, contracts analyst modifying factors - Related Data Home Medications Medication Instructions Recorded Confirmed Tamsulosin HCl [Flomax] 0.8 mg PO DAILY 01/23/22 04/30/23 Aspirin [Adult Low Dose Aspirin EC] 162 mg PO DAILY 04/27/23 04/30/23 Cholecalciferol [Vitamin D3 (25 25 mcg PO DAILY 04/27/23 04/30/23 Mcg = 1000 Iu)] DULoxetine HCL [Cymbalta] 60 mg PO DAILY 04/30/23 04/30/23 Docusate [Colace] 200 mg PO DAILY 04/30/23 04/30/23 Previous Rx's Medication Instructions Recorded Atorvastatin Calcium [Lipitor] 40 mg PO DAILY #90 tab 04/29/23 Clopidogrel [Plavix] 75 mg PO DAILY #90 tablet 04/29/23 HYDROcodone/APAP 10-325MG [[place] 1 tab PO TID 3 Days #9 tab 05/04/23 10-325] Metoprolol Succinate (ER) [Toprol 25 mg PO DAILY #30 tab 05/04/23 XL] Allergies Allergy/AdvReac Type Severity Reaction Status Date / Time mold Allergy Cough, Verified 04/30/23 20:34 bronchitis, feverish, watery eyes, runny nose pollen extracts Allergy Cough, Verified 04/30/23 20:34 bronchitis, feverish, watery eyes, runny nose environmental Allergy Intermediate Cough, Uncoded 04/30/23 20:34 bronchitis, feverish, watery eyes, runny nose dust Allergy Cough, Uncoded 04/30/23 20:34 bronchitis, feverish, watery eyes, runny nose Review of Systems ROS Statement: Those systems with pertinent positive or pertinent negative responses have been documented in the HPI. ROS Other: All systems not noted in ROS Statement are negative. Past Medical History Past Medical History: CVA/TIA, GERD/Reflux, Hyperlipidemia, Sleep Apnea/CPAP/BIPAP Additional Past Medical History / Comment(s): multiple sclerosis, PAD History of Any Multi-Drug Resistant Organisms: None Reported Past Surgical History: Appendectomy, Back Surgery, Bowel Resection, Hernia Repair, Orthopedic Surgery, Tonsillectomy Additional Past Surgical History / Comment(s): vascular bypass, left wrist x2 Past Anesthesia/Blood Transfusion Reactions: No Reported Reaction Past Psychological History: No Psychological Hx Reported Smoking Status: Former smoker Past Alcohol Use History: None Reported Past Drug Use History: None Reported General Exam General appearance: alert, in no apparent distress Head exam: Present: atraumatic, normocephalic, normal inspection Eye exam: Present: normal appearance, PERRL, EOMI. Absent: scleral icterus, conjunctival injection, periorbital swelling ENT exam: Present: normal exam, mucous membranes moist Neck exam: Present: normal inspection. Absent: tenderness, meningismus, lymphadenopathy Respiratory exam: Present: normal lung sounds bilaterally. Absent: respiratory distress, wheezes, rales, rhonchi, stridor Cardiovascular Exam: Present: regular rate, normal rhythm, normal heart sounds. Absent: systolic murmur, diastolic murmur, rubs, gallop, clicks GI/Abdominal exam: Present: soft, normal bowel sounds. Absent: distended, tenderness, guarding, rebound, rigid Extremities exam: Present: normal capillary refill, other (profound weakness right lower extremity - 2/5 strength. ). Absent: tenderness, pedal edema, joint swelling, calf tenderness Back exam: Present: normal inspection Neurological exam: Present: alert, oriented X3, CN II-XII intact Psychiatric exam: Present: normal affect, normal mood Skin exam: Present: warm, dry, intact, normal color. Absent: rash Course Vital Signs 04/30/23 04/30/23 04/30/23 15:23 21:24 22:12 Temperature 98.4 F 99.3 F Pulse Rate 96 106 H Pulse Rate [ 92 Pulse Oximetery ] Respiratory 18 18 16 Rate Blood Pressure 112/72 156/94 Blood Pressure 125/80 [Right Arm Supine] O2 Sat by Pulse 96 95 97 Oximetry Medical Decision Making - Medical Decision Making Was pt. sent in by a medical professional or institution (, PA, SCALES INSPECTOR, urgent care, hospital, or alf...) When possible be specific @ -No Did you speak to anyone other than the patient for history (EMS, parent, family, police, friend...)? What history was obtained from this source @ - Did you review nursing and triage notes (agree or disagree)? Why? @ -I reviewed and agree with nursing and triage notes Were old charts reviewed (outside hosp., previous admission, EMS record, old EKG, old radiological studies, urgent care reports/EKG's, alf records)? Report findings @ I reviewed the procedure note from the patient's recent heart cath Differential Diagnosis (chest pain, altered mental status, abdominal pain women, abdominal pain men, vaginal bleeding, weakness, fever, dyspnea, syncope, headache, dizziness, GI bleed, back pain, seizure, CVA, palpatations, mental health, musculoskeletal)? @ -Differential CVA Ischemic stroke, hemorrhagic stroke, brain tumor, atypical migraine, Wernicke's encephalopathy, seizure, multiple sclerosis, meningitis, encephalitis, hypoglycemia, Guillain-Wetzel, electrolytes disturbance, myasthenia gravis.... This is not meant to be an all-inclusive list EKG interpreted by me (3pts min.). @ -Yes and demonstrates sinus rhythm with a rate of 83. HI interval 142. QRS 94. QTC 377. No acute ST segment elevations or depressions X-rays interpreted by me (1pt min.). @ -Yes no acute process CT interpreted by me (1pt min.). @ -Yes no acute process U/S interpreted by me (1pt. min.). @ -None done What testing was considered but not performed or refused? (CT, X-rays, U/S, labs)? Why? @ -None What meds were considered but not given or refused? Why? @ -None Did you discuss the management of the patient with other professionals (professionals i.e. , PA, SCALES INSPECTOR, lab, RT, psych nurse, director social, sumac tanner, teacher, project officer, correctional case manager)? Give summary @ -Cj from [facility] Was smoking cessation discussed for >3mins.? @ -No Was critical care preformed (if so, how long)? @ -No Were there social determinants of health that impacted care today? How? (Homelessness, low income, unemployed, alcoholism, drug addiction, transportation, low edu. Level, literacy, decrease access to med. care, [facility], rehab)? @ -No Was there de-escalation of care discussed even if they declined (Discuss DNR or withdrawal of care, Hospice)? DNR status @ -No What co-morbidities impacted this encounter? (DM, HTN, Smoking, COPD, CAD, Cancer, CVA, ARF, Chemo, Hep., AIDS, mental health diagnosis, sleep apnea, mo rbid obesity)? @ -CAD, MS, CVA Was patient admitted / discharged? Hospital course, mention meds given and route, prescriptions, significant lab abnormalities, going to OR and other pertinent info. @ -Upon arrival patient was taken into room 27. Thorough history and physical exam was performed. IV is established. Laboratory studies were conducted. Last known well is unknown. CT is performed. No new stroke appreciated. Due to profound weakness I did recommend admission. We'll consult neurology and physical therapy. Patient agreeable to this plan was taken for an stable condition Undiagnosed new problem with uncertain prognosis? @ -es Drug Therapy requiring intensive monitoring for toxicity (Heparin, Nitro, Insulin, Cardizem)? @ -No Were any procedures done? @ -No Diagnosis/symptom? @ -Acute left lower extremity weakness, suspected CVA, multiple falls with head injury, status post heart cath Acute, or Chronic, or Acute on Chronic? @ -Acute Uncomplicated (without systemic symptoms) or Complicated (systemic symptoms)? @ -Complicated Side effects of treatment? @ -No Exacerbation, Progression, or Severe Exacerbation? @ -No Poses a threat to life or bodily function? How? (Chest pain, [place], [place], pneumonia, PE, COPD, DKA, ARF, appy, cholecystitis, CVA, Diverticulitis, Homicidal, Suicidal, threat to staff... and all critical care pts) @ -Yes patient's clinical symptoms appear that he has suffered a stroke - Lab Data Result diagrams: 05/04/23 08:33 05/04/23 08:33 Lab Results 04/30/23 04/30/23 04/30/23 Range/Units 17:46 17:46 17:46 WBC 8.6 (3.8-10.6) k/uL RBC 4.57 (4.30-5.90) m/uL Hgb 14.5 (13.0-17.5) gm/dL Hct 43.7 (39.0-53.0) % MCV 95.4 (80.0-100.0) fL MCH 31.7 (25.0-35.0) pg MCHC 33.3 (31.0-37.0) g/dL RDW 13.3 (11.5-15.5) % Plt Count 171 (150-450) k/uL MPV 7.2 Neutrophils % 71 % Lymphocytes % 13 % Monocytes % 11 % Eosinophils % 3 % Basophils % 1 % Neutrophils # 6.1 (1.3-7.7) k/uL Lymphocytes # 1.1 (1.0-4.8) k/uL Monocytes # 1.0 (0-1.0) k/uL Eosinophils # 0.2 (0-0.7) k/uL Basophils # 0.0 (0-0.2) k/uL PT 10.1 (10.0-12.5) sec INR 0.9 (<1.2) APTT 26.0 (22.0-30.0) sec Sodium 136 L (137-145) mmol/L Potassium 4.1 (3.5-5.1) mmol/L Chloride 106 (98-107) mmol/L Carbon Dioxide 26 (22-30) mmol/L Anion Gap 4 mmol/L BUN 19 (9-20) mg/dL Creatinine 0.59 L (0.66-1.25) mg/dL Est GFR (CKD-EPI)AfAm >90 (>60 ml/min/1.73 sqM) Est GFR (CKD-EPI)NonAf >90 (>60 ml/min/1.73 sqM) Glucose 131 H (74-99) mg/dL Estimated Ave Glu mg/dL mg/dL Hemoglobin A1c (<=6.0) % Plasma Lactic Acid Berny (0.7-2.0) mmol/L Calcium 10.5 H (8.4-10.2) mg/dL Magnesium 2.0 (1.6-2.3) mg/dL Total Bilirubin 0.4 (0.2-1.3) mg/dL AST 85 H (17-59) U/L ALT 28 (4-49) U/L Alkaline Phosphatase 108 (38-126) U/L Troponin I (0.000-0.034) ng/mL NT-Pro-B Natriuret Pep 690 pg/mL Total Protein 6.3 (6.3-8.2) g/dL Albumin 3.6 (3.5-5.0) g/dL Triglycerides (0.00-149.00) mg/dL Cholesterol (0.00-200.00) mg/dL LDL Cholesterol, Calc (0.0-131.0) mg/dL VLDL Cholesterol, Calc (5.00-40.00) mg/dL HDL Cholesterol (40.00-60.00) mg/dL Cholesterol/HDL Ratio Ratio Vitamin B12 (200.0-944.0) pg/mL RBC Folate (280 - 791) ng/mL Urine Color Urine Appearance (Clear) Urine pH (5.0-8.0) Ur Specific [place] (1.001-1.035) Urine Protein (Negative) Urine Glucose (UA) (Negative) Urine Ketones (Negative) Urine Blood (Negative) Urine Nitrite (Negative) Urine Bilirubin (Negative) Urine Urobilinogen (<2.0) mg/dL Ur Leukocyte Esterase (Negative) 04/30/23 04/30/23 04/30/23 Range/Units 17:46 17:46 17:46 WBC (3.8-10.6) k/uL RBC (4.30-5.90) m/uL Hgb (13.0-17.5) gm/dL Hct (39.0-53.0) % MCV (80.0-100.0) fL MCH (25.0-35.0) pg MCHC (31.0-37.0) g/dL RDW (11.5-15.5) % Plt Count (150-450) k/uL MPV Neutrophils % % Lymphocytes % % Monocytes % % Eosinophils % % Basophils % % Neutrophils # (1.3-7.7) k/uL Lymphocytes # (1.0-4.8) k/uL Monocytes # (0-1.0) k/uL Eosinophils # (0-0.7) k/uL Basophils # (0-0.2) k/uL PT (10.0-12.5) sec INR (<1.2) APTT (22.0-30.0) sec Sodium (137-145) mmol/L Potassium (3.5-5.1) mmol/L Chloride (98-107) mmol/L Carbon Dioxide (22-30) mmol/L Anion Gap mmol/L BUN (9-20) mg/dL Creatinine (0.66-1.25) mg/dL Est GFR (CKD-EPI)AfAm (>60 ml/min/1.73 sqM) Est GFR (CKD-EPI)NonAf (>60 ml/min/1.73 sqM) Glucose (74-99) mg/dL Estimated Ave Glu mg/dL mg/dL Hemoglobin A1c (<=6.0) % Plasma Lactic Acid Berny 1.0 (0.7-2.0) mmol/L Calcium (8.4-10.2) mg/dL Magnesium (1.6-2.3) mg/dL Total Bilirubin (0.2-1.3) mg/dL AST (17-59) U/L ALT (4-49) U/L Alkaline Phosphatase (38-126) U/L Troponin I 11.500 H* (0.000-0.034) ng/mL NT-Pro-B Natriuret Pep pg/mL Total Protein (6.3-8.2) g/dL Albumin (3.5-5.0) g/dL Triglycerides (0.00-149.00) mg/dL Cholesterol (0.00-200.00) mg/dL LDL Cholesterol, Calc (0.0-131.0) mg/dL VLDL Cholesterol, Calc (5.00-40.00) mg/dL HDL Cholesterol (40.00-60.00) mg/dL Cholesterol/HDL Ratio Ratio Vitamin B12 (200.0-944.0) pg/mL RBC Folate (280 - 791) ng/mL Urine Color Colorless Urine Appearance Clear (Clear) Urine pH 6.5 (5.0-8.0) Ur Specific [place] 1.012 (1.001-1.035) Urine Protein Negative (Negative) Urine Glucose (UA) Negative (Negative) Urine Ketones Negative (Negative) Urine Blood Negative (Negative) Urine Nitrite Negative (Negative) Urine Bilirubin Negative (Negative) Urine Urobilinogen <2.0 (<2.0) mg/dL Ur Leukocyte Esterase Negative (Negative) 04/30/23 05/01/23 05/01/23 Range/Units 21:00 00:29 08:12 WBC 9.0 (3.8-10.6) k/uL RBC 4.43 (4.30-5.90) m/uL Hgb 14.1 (13.0-17.5) gm/dL Hct 42.9 (39.0-53.0) % MCV 96.7 (80.0-100.0) fL MCH 31.9 (25.0-35.0) pg MCHC 33.0 (31.0-37.0) g/dL RDW 13.5 (11.5-15.5) % Plt Count 162 (150-450) k/uL MPV 7.4 Neutrophils % 70 % Lymphocytes % 14 % Monocytes % 10 % Eosinophils % 3 % Basophils % 1 % Neutrophils # 6.2 (1.3-7.7) k/uL Lymphocytes # 1.3 (1.0-4.8) k/uL Monocytes # 0.9 (0-1.0) k/uL Eosinophils # 0.3 (0-0.7) k/uL Basophils # 0.1 (0-0.2) k/uL PT (10.0-12.5) sec INR (<1.2) APTT (22.0-30.0) sec Sodium (137-145) mmol/L Potassium (3.5-5.1) mmol/L Chloride (98-107) mmol/L Carbon Dioxide (22-30) mmol/L Anion Gap mmol/L BUN (9-20) mg/dL Creatinine (0.66-1.25) mg/dL Est GFR (CKD-EPI)AfAm (>60 ml/min/1.73 sqM) Est GFR (CKD-EPI)NonAf (>60 ml/min/1.73 sqM) Glucose (74-99) mg/dL Estimated Ave Glu mg/dL mg/dL Hemoglobin A1c (<=6.0) % Plasma Lactic Acid Berny (0.7-2.0) mmol/L Calcium (8.4-10.2) mg/dL Magnesium (1.6-2.3) mg/dL Total Bilirubin (0.2-1.3) mg/dL AST (17-59) U/L ALT (4-49) U/L Alkaline Phosphatase (38-126) U/L Troponin I 10.900 H* 10.300 H* (0.000-0.034) ng/mL NT-Pro-B Natriuret Pep pg/mL Total Protein (6.3-8.2) g/dL Albumin (3.5-5.0) g/dL Triglycerides (0.00-149.00) mg/dL Cholesterol (0.00-200.00) mg/dL LDL Cholesterol, Calc (0.0-131.0) mg/dL VLDL Cholesterol, Calc (5.00-40.00) mg/dL HDL Cholesterol (40.00-60.00) mg/dL Cholesterol/HDL Ratio Ratio Vitamin B12 (200.0-944.0) pg/mL RBC Folate (280 - 791) ng/mL Urine Color Urine Appearance (Clear) Urine pH (5.0-8.0) Ur Specific [place] (1.001-1.035) Urine Protein (Negative) Urine Glucose (UA) (Negative) Urine Ketones (Negative) Urine Blood (Negative) Urine Nitrite (Negative) Urine Bilirubin (Negative) Urine Urobilinogen (<2.0) mg/dL Ur Leukocyte Esterase (Negative) 05/01/23 05/01/23 05/01/23 Range/Units 08:12 10:16 10:16 WBC (3.8-10.6) k/uL RBC (4.30-5.90) m/uL Hgb (13.0-17.5) gm/dL Hct (39.0-53.0) % MCV (80.0-100.0) fL MCH (25.0-35.0) pg MCHC (31.0-37.0) g/dL RDW (11.5-15.5) % Plt Count (150-450) k/uL MPV Neutrophils % % Lymphocytes % % Monocytes % % Eosinophils % % Basophils % % Neutrophils # (1.3-7.7) k/uL Lymphocytes # (1.0-4.8) k/uL Monocytes # (0-1.0) k/uL Eosinophils # (0-0.7) k/uL Basophils # (0-0.2) k/uL PT (10.0-12.5) sec INR (<1.2) APTT (22.0-30.0) sec Sodium 136 L (137-145) mmol/L Potassium 3.7 (3.5-5.1) mmol/L Chloride 107 (98-107) mmol/L Carbon Dioxide 25 (22-30) mmol/L Anion Gap 4 mmol/L BUN 17 (9-20) mg/dL Creatinine 0.60 L (0.66-1.25) mg/dL Est GFR (CKD-EPI)AfAm >90 (>60 ml/min/1.73 sqM) Est GFR (CKD-EPI)NonAf >90 (>60 ml/min/1.73 sqM) Glucose 103 H (74-99) mg/dL Estimated Ave Glu mg/dL 108 mg/dL Hemoglobin A1c 5.4 (<=6.0) % Plasma Lactic Acid Berny (0.7-2.0) mmol/L Calcium 10.4 H (8.4-10.2) mg/dL Magnesium (1.6-2.3) mg/dL Total Bilirubin (0.2-1.3) mg/dL AST (17-59) U/L ALT (4-49) U/L Alkaline Phosphatase (38-126) U/L Troponin I 8.910 H* (0.000-0.034) ng/mL NT-Pro-B Natriuret Pep pg/mL Total Protein (6.3-8.2) g/dL Albumin (3.5-5.0) g/dL Triglycerides (0.00-149.00) mg/dL Cholesterol (0.00-200.00) mg/dL LDL Cholesterol, Calc (0.0-131.0) mg/dL VLDL Cholesterol, Calc (5.00-40.00) mg/dL HDL Cholesterol (40.00-60.00) mg/dL Cholesterol/HDL Ratio Ratio Vitamin B12 (200.0-944.0) pg/mL RBC Folate (280 - 791) ng/mL Urine Color Urine Appearance (Clear) Urine pH (5.0-8.0) Ur Specific [place] (1.001-1.035) Urine Protein (Negative) Urine Glucose (UA) (Negative) Urine Ketones (Negative) Urine Blood (Negative) Urine Nitrite (Negative) Urine Bilirubin (Negative) Urine Urobilinogen (<2.0) mg/dL Ur Leukocyte Esterase (Negative) 05/01/23 05/01/23 05/01/23 Range/Units 10:16 10:16 12:50 WBC (3.8-10.6) k/uL RBC (4.30-5.90) m/uL Hgb (13.0-17.5) gm/dL Hct (39.0-53.0) % MCV (80.0-100.0) fL MCH (25.0-35.0) pg MCHC (31.0-37.0) g/dL RDW (11.5-15.5) % Plt Count (150-450) k/uL MPV Neutrophils % % Lymphocytes % % Monocytes % % Eosinophils % % Basophils % % Neutrophils # (1.3-7.7) k/uL Lymphocytes # (1.0-4.8) k/uL Monocytes # (0-1.0) k/uL Eosinophils # (0-0.7) k/uL Basophils # (0-0.2) k/uL PT (10.0-12.5) sec INR (<1.2) APTT (22.0-30.0) sec Sodium (137-145) mmol/L Potassium (3.5-5.1) mmol/L Chloride (98-107) mmol/L Carbon Dioxide (22-30) mmol/L Anion Gap mmol/L BUN (9-20) mg/dL Creatinine (0.66-1.25) mg/dL Est GFR (CKD-EPI)AfAm (>60 ml/min/1.73 sqM) Est GFR (CKD-EPI)NonAf (>60 ml/min/1.73 sqM) Glucose (74-99) mg/dL Estimated Ave Glu mg/dL mg/dL Hemoglobin A1c (<=6.0) % Plasma Lactic Acid Berny (0.7-2.0) mmol/L Calcium (8.4-10.2) mg/dL Magnesium (1.6-2.3) mg/dL Total Bilirubin (0.2-1.3) mg/dL AST (17-59) U/L ALT (4-49) U/L Alkaline Phosphatase (38-126) U/L Troponin I 8.450 H* (0.000-0.034) ng/mL NT-Pro-B Natriuret Pep 505 pg/mL Total Protein (6.3-8.2) g/dL Albumin (3.5-5.0) g/dL Triglycerides 103.00 (0.00-149.00) mg/dL Cholesterol 131.00 (0.00-200.00) mg/dL LDL Cholesterol, Calc 54.6 (0.0-131.0) mg/dL VLDL Cholesterol, Calc 20.60 (5.00-40.00) mg/dL HDL Cholesterol 55.80 (40.00-60.00) mg/dL Cholesterol/HDL Ratio 2.35 Ratio Vitamin B12 391.0 (200.0-944.0) pg/mL RBC Folate 522 (280 - 791) ng/mL Urine Color Urine Appearance (Clear) Urine pH (5.0-8.0) Ur Specific [place] (1.001-1.035) Urine Protein (Negative) Urine Glucose (UA) (Negative) Urine Ketones (Negative) Urine Blood (Negative) Urine Nitrite (Negative) Urine Bilirubin (Negative) Urine Urobilinogen (<2.0) mg/dL Ur Leukocyte Esterase (Negative) Disposition Clinical Impression: Fall, Left-sided weakness, S/P right heart catheterization Disposition: ADMITTED IP TO THIS [facility] Condition: Stable Is patient prescribed a controlled substance at d/c from ED?: No Time of Disposition: 20:33 Decision to Admit Reason: Admit from EC Decision Date: 04/30/23 Decision Time: 20:33
[2023-04-30 20:13] LABS: Appearance,Urine Clear (Clear); Bilirubin,Urine Negative (Negative); Blood,Urine Negative (Negative); Color,Urine Colorless; Glucose,Urine (UA) Negative (Negative); Ketones,Urine Negative (Negative); Leukocyte Esterase,Urine Negative (Negative); Nitrite,Urine Negative (Negative); PH, Urine 6.5 (5.0-8.0); Protein,Urine Negative (Negative); Specific Gravity,Urine 1.012 (1.001-1.035); Urobilinogen,Urine <2.0 mg/dL (<2.0)
[2023-04-30] MEDS ORDERED: NALOXONE 0.4 MG/ML 1 ML VIAL IV PRN (20:38)
[2023-04-30] MEDS: HYDROcodone/APAP 10-325MG 1 EACH TAB PO ONE (21:21)
[2023-05-01 09:04] LABS: Basophils # (A) 0.1 k/uL (0-0.2); Basophils % (A) 1 %; Eosinophils # (A) 0.3 k/uL (0-0.7); Eosinophils % (A) 3 %; HCT 42.9 % (39.0-53.0); HGB 14.1 gm/dL (13.0-17.5); Lymphocytes # (A) 1.3 k/uL (1.0-4.8); Lymphocytes % (A) 14 %; MCH 31.9 pg (25.0-35.0); MCV 96.7 fL (80.0-100.0); Mean Platelet Volume 7.4; Monocytes # (A) 0.9 k/uL (0-1.0); Monocytes % (A) 10 %; Neutrophils # (A) 6.2 k/uL (1.3-7.7); Neutrophils % (A) 70 %; Platelet Count 162 k/uL (150-450); RBC 4.43 m/uL (4.30-5.90); RDW 13.5 % (11.5-15.5)
[2023-05-01 09:43] LABS: African American GFR (CKD) >90 (>60 ml/min/1.73 sqM); Anion Gap 4 mmol/L; Blood Urea Nitrogen 17 mg/dL (9-20); Calcium 10.4 mg/dL (8.4-10.2); Carbon Dioxide 25 mmol/L (22-30); Chloride 107 mmol/L (98-107); Glucose 103 mg/dL (74-99); Non-African American GFR(CKD) >90 (>60 ml/min/1.73 sqM); Potassium 3.7 mmol/L (3.5-5.1); Sodium 136 mmol/L (137-145)
[2023-05-01] MEDS: HYDROcodone/APAP 10-325MG 1 EACH TAB PO SCH (09:53)
[2023-05-01] MEDS: DOCUSATE 100 MG CAP PO SCH (09:54)
[2023-05-01] MEDS: DULoxetine HCL 60 MG CAPSULE.DR PO SCH (09:54)
[2023-05-01] MEDS: CHOLECALCIFEROL 25 MCG (1000 IU) TABLET PO SCH (09:54)
[2023-05-01] MEDS: ATORVASTATIN 40 MG TAB PO SCH (09:54)
[2023-05-01] MEDS: CLOPIDOGREL 75 MG TAB PO SCH (09:54)
[2023-05-01] MEDS: TAMSULOSIN 0.4 MG CAP.ER.24H PO SCH (09:55)
[2023-05-01] MEDS: ASPIRIN 81 MG PO SCH ×2 (10:02→10:30)
[2023-05-01 11:03] LABS: NT-Pro-B-Type Natriuretic Pept 505 pg/mL
--- NOTE | 2023-05-01 13:00 | MR ---
MRI brain HISTORY: MS, stroke. COMPARISON: 01/26/2022. TECHNIQUE: Multiecho multiplanar images of brain were obtained without contrast. FINDINGS: On the T1-weighted sagittal images the midline structures including the craniovertebral junction rela tionships appear normal. The ventricles, basal cisterns and sulci over convexities are mildly to moderately enlarged consisten t with mild atrophy. There is no mass effect or shift of midline structures. There is marked multifocal and diffuse abnormal increased signal intensity in the white matter both c erebral hemispheres consistent with MS demyelinating plaques. Compared to the prior study, there is b een no significant interval change. Based on diffusion-weighted imaging, there is no diffusion restriction or acute ischemic event on the susceptibility weighted images there is a focal area of marked decrease in signal intensity in the r ight frontal lobe which is seen previously and is consistent with a remote small hemorrhage. There are multiple remote lacunar infarcts in the right cerebellar hemisphere. The intraorbital contents appear normal and symmetric. Visualized paranasal sinuses and mastoid air cells are well aerated.. IMPRESSION: 1. No acute ischemic event. 2. Small remote focal right frontal lobe hemorrhage. 3. Marked abnormal signal intensity within the white matter both cerebral hemispheres consistent with the provided history of multiple sclerosis 4. Mild to moderate age-appropriate atrophy.
--- NOTE | 2023-05-01 13:51 | P.CNNES ---
History of Present Illness Consult date: 05/01/23 History of Present Illness: The pt is 72 y/o, right handed male who is seen in neurologic consultation on 2023, in collaboration with Julia Evans, via teleneurology. History is obtained from the pt, RN and review of the chart. The pt reportedly had a cardiac cath done, as an outpt, on 2023. He had 2 stents placed. The pt was discharged home and reports that later, he began to have difficulty ambulating. He has reportedly had several falls. The pt does have a history of stroke/hemorrhage, effecting his left side. He stated that the left leg weakness is much worse. In addition, the pt has a history of Multiple Sclerosis. The pt denies left arm weakness, difficulty with speech and swallowing. There is no vision change. The pt reports a history of back, neck and shoulder pain. CT scan of the brain performed in the ER revealed no evidence of acute infarct or hemorrhage. Past Medical History Past Medical History: CVA/TIA, GERD/Reflux, Hyperlipidemia, Sleep Apnea/CPAP/BIPAP Additional Past Medical History / Comment(s): multiple sclerosis, PAD History of Any Multi-Drug Resistant Organisms: None Reported Past Surgical History: Appendectomy, Back Surgery, Bowel Resection, Hernia Repair, Orthopedic Surgery, Tonsillectomy Additional Past Surgical History / Comment(s): vascular bypass, left wrist x2 Past Anesthesia/Blood Transfusion Reactions: No Reported Reaction Past Psychological History: No Psychological Hx Reported Smoking Status: Former smoker Past Alcohol Use History: None Reported Past Drug Use History: None Reported Medications and Allergies Home Medications Medication Instructions Recorded Confirmed Type Tamsulosin HCl [Flomax] 0.8 mg PO DAILY 01/23/22 04/30/23 History Aspirin [Adult Low Dose Aspirin EC] 162 mg PO DAILY 04/27/23 04/30/23 History Cholecalciferol [Vitamin D3 (25 25 mcg PO DAILY 04/27/23 04/30/23 History Mcg = 1000 Iu)] Atorvastatin Calcium [Lipitor] 40 mg PO DAILY #90 tab 04/29/23 04/30/23 Rx Clopidogrel [Plavix] 75 mg PO DAILY #90 tablet 04/29/23 04/30/23 Rx DULoxetine HCL [Cymbalta] 60 mg PO DAILY 04/30/23 04/30/23 History Docusate [Colace] 200 mg PO DAILY 04/30/23 04/30/23 History HYDROcodone/APAP 10-325MG [[place] 1 tab PO TID 04/30/23 04/30/23 History 10-325] Allergies Allergy/AdvReac Type Severity Reaction Status Date / Time mold Allergy Cough, Verified 04/30/23 20:34 bronchitis, feverish, watery eyes, runny nose pollen extracts Allergy Cough, Verified 04/30/23 20:34 bronchitis, feverish, watery eyes, runny nose environmental Allergy Intermediate Cough, Uncoded 04/30/23 20:34 bronchitis, feverish, watery eyes, runny nose dust Allergy Cough, Uncoded 04/30/23 20:34 bronchitis, feverish, watery eyes, runny nose Physical Examination - Vital Signs Vital Signs: Vital Signs Temp Pulse Pulse Resp BP BP Pulse Ox 05/01/23 12:00 98 18 97/62 96 05/01/23 09:20 98.6 F 95 18 136/81 98 05/01/23 04:00 98.6 F 97 18 125/68 94 L 05/01/23 02:00 95 18 05/01/23 00:00 99.2 F 95 18 138/79 95 04/30/23 22:12 99.3 F 92 16 125/80 97 04/30/23 21:24 106 H 18 156/94 95 04/30/23 15:23 98.4 F 96 18 112/72 96 Intake and Output 04/30/23 05/01/23 05/01/23 22:59 06:59 14:59 Output Total 300 Balance -300 Output: Urine 300 Other: Voiding Method Urinal Urinal # Voids 1 Weight 61.235 kg General: The pt is reclining in the bed. He is well nourished and in no distress. HEENT: Head is atraumatic, normocephalic. There is no scleral icterus. Fundus no visualized. Mucous membranes moist Neck: Supple without bruits Heart: Regular rate and rhythm Lungs: No cough or wheeze Extremities: Mild left lower extremity edema Neurological Exam Mental status: The pt is awake, alert and oriented x3. Speech is clear. There is no dysarthria or aphasia. Cranial nerves: Pupils are equal at 2mm and reactive. Visual weinberg full. EOMI. Facial sensation intact. No facial asymmetry. Hearing grossly intact. Shoulder shrug symmetric. Tongue protrudes midline. Motor: Right upper and lower extremity strength 4/5. Left upper extremity strength 3/5. Left hip flexor 2/5. Left ankle plantar flexor 2/5 Sensation: Decreased light touch sensation involving left upper and lower extremities. Coordination: There is slowing of left sided rapid alternating movements. There is left dysmetria on finger to nose testing. Mild ataxia with right heel to garcia testing Deep tendon reflexes: 3+/4+ in the left extremities and 2+/4+ on the right. Plantar responses difficult to assess secondary to withdrawal Gait: Not assessed Results - Laboratory Findings CBC and BMP: 05/01/23 08:12 05/01/23 08:12 Abnormal Lab Findings: Abnormal Labs 04/30/23 04/30/23 04/30/23 17:46 17:46 21:00 Sodium 136 L Creatinine 0.59 L Glucose 131 H Calcium 10.5 H AST 85 H Troponin I 11.500 H* 10.900 H* 05/01/23 05/01/23 05/01/23 00:29 08:12 10:16 Sodium 136 L Creatinine 0.60 L Glucose 103 H Calcium 10.4 H AST Troponin I 10.300 H* 8.910 H* - Diagnostic Findings Comments: MRI images have been personally reviewed Assessment and Plan Assessment: 1. New left leg weakness, possible small infarct related to release of plaque during cardiac cath vs unmasking of already present weakness in the setting of anesthesia 2. History of Multiple sclerosis-poss. flare of MS-doubt 3. History of back pain Plan: 1. MRI brain 2. Stroke work up-PT, OT, ST 3. Restart ASA and Plavix 4. High dose statin Thank you for allowing us to participate in the care of this pt Time with Patient: Greater than 30 (58 minutes spent caring for this pt today, including obtaining a history, examining the pt, reviewing imaging, chart documentation, placing orders and creating this note)
--- NOTE | 2023-05-01 14:18 | P.HPIM ---
History of Present Illness H&P Date: 05/01/23 History of present illness; patient 72-year-old gentleman with past medical hist ory significant for CVA, coronary artery disease who presented to the ER because of multiple falls and generalized weakness. Patient was worked up outpatient by cardiology after abnormal stress test and ended up having a cardiac cath with 2 stents placed according to family. Patient was discharged home 2 days back. Patient noticed that the patient has been very weak and unable to bear any weight. Patient has been falling multiple times. No complaint of loss of consciousness. did not notice any jerking movement of any extremity. Did not notice any slurred speech or facial droop. Patient did complain of feeling weak on his left side. Patient has History of prior CVA that involved the left side but patient stated that the left side is much more weaker now. Patient denies any chest pain. Denies any nausea, vomiting or abdominal pain. Because of the symptoms, patient came to the ER Initial lab work done in the ER showed WBC 8.6, hemoglobin 14.5, platelet count 171, sodium 136, potassium 4.1, BUN 19, creatinine 0.59, glucose 131, lactate 1, calcium 10.5, troponin 11.5 urine negative for any infection EKG done in the ER showed heart rate of 83, no ST segment elevation or depression seen, no T-wave inversions seen. Chest x-ray done in the ER showed no evidence for acute pulmonary disease CT head done showed no acute intracranial process CT cervical spine negative for any acute cervical spine fracture or subluxation CTA head and neck done showed no significant stenosis, aneurysm or thrombus in the intracranial circulation Patient admitted to internal medicine service REVIEW OF SYSTEMS: CONSTITUTIONAL: No fever, as mentioned above HEENT: No recent visual problems or hearing problems. Denied any sore throat. CARDIOVASCULAR: No chest pain, orthopnea, PND, no palpitations, no syncope. PULMONARY: No shortness of breath, no cough, no hemoptysis. GASTROINTESTINAL: No diarrhea, no nausea, no vomiting, no abdominal pain. NEUROLOGICAL: As Mentioned above HEMATOLOGICAL: Denies any bleeding or petechiae. GENITOURINARY: Denies any burning micturition, frequency, or urgency. MUSCULOSKELETAL/RHEUMATOLOGICAL: Denies any joint pain, swelling, or any muscle pain. ENDOCRINE: Denies any polyuria or polydipsia. The rest of the 14-point review of systems is negative. PHYSICAL EXAMINATION: GENERAL: The patient is alert and oriented x3, not in any acute distress. Well developed, well nourished. HEENT: Pupils are round and equally reacting to light. EOMI. No scleral icterus. No conjunctival pallor. Normocephalic, atraumatic. No pharyngeal erythema. No thyromegaly. CARDIOVASCULAR: S1 and S2 present. No murmurs, rubs, or gallops. PULMONARY: Chest is clear to auscultation, no wheezing or crackles. ABDOMEN: Soft, nontender, nondistended, normoactive bowel sounds. No palpable organomegaly. MUSCULOSKELETAL: No joint swelling or deformity. EXTREMITIES: No cyanosis, clubbing, or pedal edema. NEUROLOGICAL: Alert, muscle strength is 3/5 in the left side and 5/5 in right side SKIN: No rashes. Assessment and plan Acute CVA Elevated troponin History of coronary disease with recent stent placement History of CVA Monitor vital signs Monitor CBC Monitor CMP Continue telemetry monitoring Continue neuro checks Trend troponin Fall precautions Ordered 2-D echo Ordered MRI brain Ordered HbA1c level, TSH, vitamin B12, folate Resume aspirin and Plavix Consult cardiology Consult neurology Labs and medication were reviewed.. Continue same treatment. Continue with symptomatic treatment. Resume home medication. Monitor labs and vitals. DVT and GI prophylaxis. Further recommendations as per clinical course of the patient Dictation was produced using [employer] dictation software. please excuse any grammatical, word or spelling errors. Past Medical History Past Medical History: CVA/TIA, GERD/Reflux, Hyperlipidemia, Sleep Apnea/CPAP/BIPAP Additional Past Medical History / Comment(s): multiple sclerosis, PAD History of Any Multi-Drug Resistant Organisms: None Reported Past Surgical History: Appendectomy, Back Surgery, Bowel Resection, Hernia Repair, Orthopedic Surgery, Tonsillectomy Additional Past Surgical History / Comment(s): vascular bypass, left wrist x2 Past Anesthesia/Blood Transfusion Reactions: No Reported Reaction Past Psychological History: No Psychological Hx Reported Smoking Status: Former smoker Past Alcohol Use History: None Reported Past Drug Use History: None Reported Medications and Allergies Home Medications Medication Instructions Recorded Confirmed Type Tamsulosin HCl [Flomax] 0.8 mg PO DAILY 01/23/22 04/30/23 History Aspirin [Adult Low Dose Aspirin EC] 162 mg PO DAILY 04/27/23 04/30/23 History Cholecalciferol [Vitamin D3 (25 25 mcg PO DAILY 04/27/23 04/30/23 History Mcg = 1000 Iu)] Atorvastatin Calcium [Lipitor] 40 mg PO DAILY #90 tab 04/29/23 04/30/23 Rx Clopidogrel [Plavix] 75 mg PO DAILY #90 tablet 04/29/23 04/30/23 Rx DULoxetine HCL [Cymbalta] 60 mg PO DAILY 04/30/23 04/30/23 History Docusate [Colace] 200 mg PO DAILY 04/30/23 04/30/23 History HYDROcodone/APAP 10-325MG [[place] 1 tab PO TID 04/30/23 04/30/23 History 10-325] Allergies Allergy/AdvReac Type Severity Reaction Status Date / Time mold Allergy Cough, Verified 04/30/23 20:34 bronchitis, feverish, watery eyes, runny nose pollen extracts Allergy Cough, Verified 04/30/23 20:34 bronchitis, feverish, watery eyes, runny nose environmental Allergy Intermediate Cough, Uncoded 04/30/23 20:34 bronchitis, feverish, watery eyes, runny nose dust Allergy Cough, Uncoded 04/30/23 20:34 bronchitis, feverish, watery eyes, runny nose Physical Exam Vitals: Vital Signs Temp Pulse Pulse Resp BP BP Pulse Ox 05/01/23 09:20 98.6 F 95 18 136/81 98 05/01/23 04:00 98.6 F 97 18 125/68 94 L 05/01/23 02:00 95 18 05/01/23 00:00 99.2 F 95 18 138/79 95 04/30/23 22:12 99.3 F 92 16 125/80 97 04/30/23 21:24 106 H 18 156/94 95 04/30/23 15:23 98.4 F 96 18 112/72 96 Intake and Output 04/30/23 05/01/23 05/01/23 22:59 06:59 14:59 Output Total 300 Balance -300 Output: Urine 300 Other: Voiding Method Urinal # Voids 1 Weight 61.235 kg Results CBC & Chem 7: 05/01/23 08:12 05/01/23 08:12 Labs: Abnormal Lab Results - Last 24 Hours (Table) 04/30/23 04/30/2324 Range/Units 17:46 17:46 21:00 Sodium 136 L (137-145) mmol/L Creatinine 0.59 L (0.66-1.25) mg/dL Glucose 131 H (74-99) mg/dL Calcium 10.5 H (8.4-10.2) mg/dL AST 85 H (17-59) U/L Troponin I 11.500 H* 10.900 H* (0.000-0.034) ng/mL 05/01/23 Range/Units 00:29 Sodium (137-145) mmol/L Creatinine (0.66-1.25) mg/dL Glucose (74-99) mg/dL Calcium (8.4-10.2) mg/dL AST (17-59) U/L Troponin I 10.300 H* (0.000-0.034) ng/mL Thrombosis Risk Factor Assmnt - Choose All That Apply Any of the Below Risk Factors Present?: No Other Risk Factors: Yes Each Risk Factor Represents 2 Points: Age 61-74 years Other congenital or acquired thrombophilia - If yes, enter type in comment: No Thrombosis Risk Factor Assessment Total Risk Factor Score: 2 Thrombosis Risk Factor Assessment Level: Low Risk
[2023-05-01 17:57] LABS: Chol/HDL Ratio 2.35 Ratio; LDL Cholesterol,Calculated 54.6 mg/dL (0.0-131.0)
--- NOTE | 2023-05-01 20:07 | P.CRDCN ---
History of Present Illness Consult date: 05/01/23 History of present illness: HISTORY OF PRESENTING ILLNESS 72-year-old with PMH of CAD status post recent PCI on 04/28/2022 to mid RCA by Dr. Weems. He has prior history of CVA. He presented to the hospital because of generalized weakness and fall. Since patient has responded back home, he has felt significantly weak and is unable to be elevated. He has had multiple falls. He denies any loss of consciousness. Initial lab work done in the ER showed WBC 8.6, hemoglobin 14.5, platelet count 171, sodium 136, potassium 4.1, BUN 19, creatinine 0.59, glucose 131, lactate 1, calcium 10.5, troponin 11.5 urine negative for any infection EKG done in the ER showed heart rate of 83, sinus, no ST segment elevation or depression seen. Chest x-ray done in the ER showed no evidence for acute pulmonary disease CT head done showed no acute intracranial process CT cervical spine negative for any acute cervical spine fracture or subluxation CTA head and neck done showed no significant stenosis, aneurysm or thrombus in the intracranial circulation MRI of the brain shows some findings consistent with multiple sclerosis REVIEW OF SYSTEMS 14 point review of system is negative except what is mentioned above in HPI. PHYSICAL EXAMINATION Lungs: Clear to auscultation. Heart: Regular rate and rhythm, S1-S2, no S3, Abdomen: Soft nontender, Extremities: No edema, Neuro: Awake, oriented. Detailed neuro exam was not performed ASSESSMENT Left leg weakness, possibly due to CVA versus unmasking of 40 present weakness in setting of anesthesia Recent PCI to mid LAD CAD History of multiple sclerosis Prior history of CVA Echo January 2022 EF 55% PLAN Continue aspirin, Plavix, atorvastatin MRI shows some encephalomalacia not sure if it's an acute flareup of multiple sclerosis. Follow-up neurology recommendations Holding LIZETTE inhibitor isn't beta blockers due to low resting blood pressure 95/65 Past Medical History Past Medical History: CVA/TIA, GERD/Reflux, Hyperlipidemia, Sleep Apnea/CPA P/BIPAP Additional Past Medical History / Comment(s): multiple sclerosis, PAD History of Any Multi-Drug Resistant Organisms: None Reported Past Surgical History: Appendectomy, Back Surgery, Bowel Resection, Hernia Repair, Orthopedic Surgery, Tonsillectomy Additional Past Surgical History / Comment(s): vascular bypass, left wrist x2 Past Anesthesia/Blood Transfusion Reactions: No Reported Reaction Past Psychological History: No Psychological Hx Reported Smoking Status: Former smoker Past Alcohol Use History: None Reported Past Drug Use History: None Reported Medications and Allergies Home Medications Medication Instructions Recorded Confirmed Type Tamsulosin HCl [Flomax] 0.8 mg PO DAILY 01/23/22 04/30/23 History Aspirin [Adult Low Dose Aspirin EC] 162 mg PO DAILY 04/27/23 04/30/23 History Cholecalciferol [Vitamin D3 (25 25 mcg PO DAILY 04/27/23 04/30/23 History Mcg = 1000 Iu)] Atorvastatin Calcium [Lipitor] 40 mg PO DAILY #90 tab 04/29/23 04/30/23 Rx Clopidogrel [Plavix] 75 mg PO DAILY #90 tablet 04/29/23 04/30/23 Rx DULoxetine HCL [Cymbalta] 60 mg PO DAILY 04/30/23 04/30/23 History Docusate [Colace] 200 mg PO DAILY 04/30/23 04/30/23 History HYDROcodone/APAP 10-325MG [[place] 1 tab PO TID 04/30/23 04/30/23 History 10-325] Allergies Allergy/AdvReac Type Severity Reaction Status Date / Time mold Allergy Cough, Verified 04/30/23 20:34 bronchitis, feverish, watery eyes, runny nose pollen extracts Allergy Cough, Verified 04/30/23 20:34 bronchitis, feverish, watery eyes, runny nose environmental Allergy Intermediate Cough, Uncoded 04/30/23 20:34 bronchitis, feverish, watery eyes, runny nose dust Allergy Cough, Uncoded 04/30/23 20:34 bronchitis, feverish, watery eyes, runny nose Physical Exam Vitals: Vital Signs Temp Pulse Pulse Resp BP BP Pulse Ox 05/01/23 15:15 97.8 F 90 18 85/54 95 05/01/23 14:00 98 18 05/01/23 12:00 98 18 97/62 96 05/01/23 09:20 98.6 F 95 18 136/81 98 05/01/23 04:00 98.6 F 97 18 125/68 94 L 05/01/23 02:00 95 18 05/01/23 00:00 99.2 F 95 18 138/79 95 04/30/23 22:12 99.3 F 92 16 125/80 97 04/30/23 21:24 106 H 18 156/94 95 Intake and Output 05/01/23 05/01/23 05/01/23 06:59 14:59 22:59 Intake Total 698 Output Total 300 Balance -300 698 Intake: Oral 698 Output: Urine 300 Other: Voiding Method Urinal Urinal Results 05/01/23 08:12 05/01/23 08:12 Cardiac Enzymes 04/30/23 05/01/23 05/01/23 Range/Units 21:00 00:29 10:16 Troponin I 10.900 H* 10.300 H* 8.910 H* (0.000-0.034) ng/mL 05/01/23 Range/Units 12:50 Troponin I 8.450 H* (0.000-0.034) ng/mL Lipids 05/01/23 Range/Units 10:16 Triglycerides 103.00 (0.00-149.00) mg/dL Cholesterol 131.00 (0.00-200.00) mg/dL HDL Cholesterol 55.80 (40.00-60.00) mg/dL Cholesterol/HDL Ratio 2.35 Ratio CBC 05/01/23 Range/Units 08:12 WBC 9.0 (3.8-10.6) k/uL RBC 4.43 (4.30-5.90) m/uL Hgb 14.1 (13.0-17.5) gm/dL Hct 42.9 (39.0-53.0) % Plt Count 162 (150-450) k/uL Comprehensive Metabolic Panel 05/01/23 Range/Units 08:12 Sodium 136 L (137-145) mmol/L Potassium 3.7 (3.5-5.1) mmol/L Chloride 107 (98-107) mmol/L Carbon Dioxide 25 (22-30) mmol/L BUN 17 (9-20) mg/dL Creatinine 0.60 L (0.66-1.25) mg/dL Glucose 103 H (74-99) mg/dL Calcium 10.4 H (8.4-10.2) mg/dL Current Medications Generic Name Dose Route Start Last Admin Trade Name Freq PRN Reason Stop Dose Admin Hydrocodone Bitart/Acetaminophen 1 each 05/01/23 09:00 05/01/23 15:45 Hydrocodone/Apap 10-325mg 1 Each Tab PO 1 each TID ADARSH Administration Aspirin 81 mg 05/01/23 10:00 05/01/23 10:02 Aspirin 81 Mg PO 81 mg DAILY ADARSH Administration Atorvastatin Calcium 40 mg 05/01/23 09:00 05/01/23 09:54 Atorvastatin 40 Mg Tab PO 40 mg DAILY ADARSH Administration Cholecalciferol 25 mcg 05/01/23 09:00 05/01/23 09:54 Cholecalciferol 25 Mcg (1000 Iu) Tablet PO 25 mcg DAILY ADARSH Administration Clopidogrel Bisulfate 75 mg 05/01/23 09:00 05/01/23 09:54 Clopidogrel 75 Mg Tab PO 75 mg DAILY ADARSH Administration Docusate Sodium 200 mg 05/01/23 09:00 05/01/23 09:54 Docusate 100 Mg Cap PO 200 mg DAILY ADARSH Administration Duloxetine HCl 60 mg 05/01/23 09:00 05/01/23 09:54 Duloxetine Hcl 60 Mg Capsule.Dr PO 60 mg DAILY ADARSH Administration Naloxone HCl 0.2 mg 04/30/23 20:38 Naloxone 0.4 Mg/Ml 1 Ml Vial IV Q2M PRN Opioid Reversal Tamsulosin HCl 0.8 mg 05/01/23 09:00 05/01/23 09:55 Tamsulosin 0.4 Mg Cap.Er.24h PO 0.8 mg DAILY ADARSH Administration Intake and Output 05/01/23 05/01/23 05/01/23 06:59 14:59 22:59 Intake Total 698 Output Total 300 Balance -300 698 Intake: Oral 698 Output: Urine 300 Other: Voiding Method Urinal Urinal 05/01/23 08:12 05/01/23 08:12
--- NOTE | 2023-05-02 10:57 | CT ---
EXAMINATION TYPE: CT brain wo con DATE OF EXAM: 05/02/2023 COMPARISON: 02/13/2022 HISTORY: left sided weakness CT DLP: 1196.4 mGycm Automated exposure control for dose reduction was used. FINDINGS: The ventricles, basal cisterns and sulci over convexities are moderately enlarged consistent with mod erate generalized atrophy. There is moderate decreased density in the deep periventricular white matter consistent with chronic ischemic white matter demyelination. There is a small remote remote lacunar infarct in the medial aspect of the right occipital lobe. There is no acute intra or extra-axial hemorrhage. There is no mass effect or shift of the midline structures. The posterior fossa within the brain stem, fourth ventricle and cerebellopontine angles appear normal . The intraorbital contents appear normal and symmetric. The visualized paranasal sinuses and mastoid a ir cells are well aerated. Calvarium is intact. IMPRESSION: 1. Stable senescent changes as described above. 2. No acute bleed or mass effect. 3. Stable remote lacunar infarct medial right occipital lobe IMPRESSION:
--- NOTE | 2023-05-02 11:08 | CA ---
Transthoracic Echo Report Name: Callie Álvarez Age: 72 Gender: M : 1950 Exam Date: 05/01/2023 15:33 Exam Location: [facility] Ht (in): 70 Wt (lb): 135 Ordering Physician: Haider Moore MD Attending/Referring Phys: [employer] Television Technician Kevin Dunn RD Procedure CPT: Indications: elevated troponin Cardiac Hx: Technical Quality: Technically difficult study Contrast 1: Definity Total Dose (mL): 2 Contrast 2: Total Dose (mL): MEASUREMENTS (Male / Female) Normal Values 2D ECHO LV Diastolic Diameter PLAX 4.1 cm 4.2 - 5.9 / 3.9 - 5.3 cm LV Systolic Diameter PLAX 2.6 cm IVS Diastolic Thickness 0.9 cm 0.6 - 1.0 / 0.6 - 0.9 cm LVPW Diastolic Thickness 1.1 cm 0.6 - 1.0 / 0.6 - 0.9 cm LV Relative Wall Thickness 0.5 RV Internal Dim ED PLAX 3.2 cm LVOT Diameter 2.1 cm Aortic Root Diameter 3.3 cm LA Systolic Diameter LX 2.1 cm 3.0 - 4.0 / 2.7 - 3.8 cm LV Diastolic Volume MOD BP 29.1 cm??? 67 - 155 / 56 - 104 cm??? LV Systolic Volume MOD BP 12.2 cm??? 22 - 58 / 19 - 49 cm??? LV Ejection Fraction MOD BP 58.2 % >= 55 % LV Cardiac Index MOD BP 929.5 cm???/min???m??? LV Diastolic Volume MOD 4C 44.1 cm??? LV Systolic Volume MOD 4C 13.0 cm??? LV Ejection Fraction MOD 4C 70.5 % LV Cardiac Index MOD 4C 1707.4 cm???/min???m??? LV Diastolic Length 4C 7.2 cm LV Systolic Length 4C 6.1 cm LV Diastolic Volume MOD 2C 15.7 cm??? LV Systolic Volume MOD 2C 10.6 cm??? LV Ejection Fraction MOD 2C 32.6 % LV Cardiac Index MOD 2C 280.6 cm???/min???m??? LV Diastolic Length 2C 5.9 cm LV Systolic Length 2C 5.6 cm DOPPLER AV Peak Velocity 86.0 cm/s AV Peak Gradient 3.0 mmHg LVOT Peak Velocity 80.0 cm/s LVOT Peak Gradient 2.6 mmHg LVOT Velocity Time Integral 12.7 cm LVOT Stroke Volume 45.7 cm??? LVOT Stroke Volume Index 25.9 ml/m??? LVOT Cardiac Index 2510.1 cm???/min???m??? AV Area Cont Eq pk 3.4 cm??? MV Peak Velocity 93.2 cm/s MV Peak Gradient 3.5 mmHg MV Mean Velocity 42.6 cm/s MV Mean Gradient 1.0 mmHg MV Velocity Time Integral 20.6 cm Mitral E Point Velocity 52.6 cm/s Mitral A Point Velocity 91.6 cm/s Mitral E to A Ratio 0.6 MV Deceleration Time 401.9 ms TR Peak Velocity 203.6 cm/s TR Peak Gradient 16.6 mmHg Right Ventricular Systolic Press 21.6 mmHg PV Peak Velocity 84.6 cm/s PV Peak Gradient 2.9 mmHg FINDINGS Left Ventricle Normal LV size and wall thickness. Left ventricular ejection fraction is estimated at 55-60 %. Right Ventricle Normal right ventricular size. RVSP= 22mmHg. Right Atrium Normal right atrial size. Left Atrium Normal left atrial size. Mitral Valve Structurally normal mitral valve. Aortic Valve Aortic valve not well visualized. No aortic regurgitation. No aortic stenosis. Tricuspid Valve Tricuspid valve not well visualized. Mild TR. Pulmonic Valve Pulmonic valve not well visualized. No pulmonic regurgitation. Pericardium Not well visualized. Aorta Normal size aortic root. CONCLUSIONS Technically limited views. EF 55-60% No obvious wall motion abnormality at rest No obvious valvular dysfunction No significant pericardial effusion No significant difference when compared to echo from January 2022 Previewed by: Dr Roberth Quintanilla (Electronically Signed) Final Date: 02 May 2023 11:07
--- NOTE | 2023-05-02 12:34 | P.PN ---
Subjective Progress Note Date: 05/02/23 patient 72-year-old gentleman with past medical history significant for CVA, coronary artery disease who presented to the ER because of multiple falls and generalized weakness. Patient was worked up outpatient by cardiology after abnormal stress test and ended up having a cardiac cath with 2 stents placed according to family. Patient was discharged home 2 days back. Patient n oticed that the patient has been very weak and unable to bear any weight. Patient has been falling multiple times. No complaint of loss of consciousness. did not notice any jerking movement of any extremity. Did not notice any slurred speech or facial droop. Patient did complain of feeling weak on his left side. Patient has History of prior CVA that involved the left side but patient stated that the left side is much more weaker now. Patient denies any chest pain. Denies any nausea, vomiting or abdominal pain. Because of the symptoms, patient came to the ER Initial lab work done in the ER showed WBC 8.6, hemoglobin 14.5, platelet count 171, sodium 136, potassium 4.1, BUN 19, creatinine 0.59, glucose 131, lactate 1, calcium 10.5, troponin 11.5 urine negative for any infection EKG done in the ER showed heart rate of 83, no ST segment elevation or depression seen, no T-wave inversions seen. Chest x-ray done in the ER showed no evidence for acute pulmonary disease CT head done showed no acute intracranial process CT cervical spine negative for any acute cervical spine fracture or subluxation CTA head and neck done showed no significant stenosis, aneurysm or thrombus in the intracranial circulation Patient admitted to internal medicine service 05/02. Patient seen and examined. MRI done showed Showed no acute ischemic event, Showed small remote focal right frontal lobe hemorrhage.. States he feels much better, left-sided weakness has improved. REVIEW OF SYSTEMS: CONSTITUTIONAL: No fever, no malaise,. CARDIOVASCULAR: No chest pain, no palpitations, no syncope. PULMONARY: No shortness of breath, no cough, GASTROINTESTINAL: No diarrhea, no nausea, no vomiting, no abdominal pain. NEUROLOGICAL: No headaches, no weakness, PHYSICAL EXAMINATION: GENERAL: The patient is alert and oriented x3, not in any acute distress. Well developed, well nourished. HEENT: Pupils are round and equally reacting to light. EOMI. No scleral icterus. No conjunctival pallor. Normocephalic, atraumatic. No pharyngeal erythema. No thyromegaly. CARDIOVASCULAR: S1 and S2 present. No murmurs, rubs, or gallops. PULMONARY: Chest is clear to auscultation, no wheezing or crackles. ABDOMEN: Soft, nontender, nondistended, normoactive bowel sounds. No palpable organomegaly. MUSCULOSKELETAL: No joint swelling or deformity. EXTREMITIES: No cyanosis, clubbing, or pedal edema. NEUROLOGICAL: Alert, muscle strength is 4/5 in the left side and 5/5 in right side SKIN: No rashes. Assessment and plan Strokelike symptoms, CVA ruled out Elevated troponin History of coronary disease with recent stent placement History of CVA Monitor vital signs Monitor CBC Monitor CMP Continue telemetry monitoring Continue neuro checks Trend troponin Fall precautions Ordered 2-D echo MRI done showed Showed no acute ischemic event, Showed small remote focal right frontal lobe hemorrhage.. MRI done last time also showed a small focal right frontal lobe hemorrhage Continue aspirin and Plavix Cardiology following Neurology following Labs and medication were reviewed.. Continue same treatment. Continue with symptomatic treatment. Resume home medication. Monitor labs and vitals. DVT and GI prophylaxis. Further recommendations as per clinical course of the patient Dictation was produced using [employer] dictation software. please excuse any grammatical, word or spelling errors. Objective - Vital Signs Vital signs: Vital Signs Temp 98.2 F 05/02/23 09:11 Pulse 102 H 05/02/23 09:11 Resp 16 05/02/23 09:11 BP 120/72 05/02/23 09:11 Pulse Ox 96 05/02/23 09:11 FiO2 Intake & Output 05/01/23 05/02/23 05/02/23 18:59 06:59 18:59 Intake Total 698 240 Output Total 300 700 Balance 398 -700 240 Intake: Oral 698 240 Output: Urine 300 700 Other: Voiding Method Urinal Urinal Urinal Diaper Diaper # Voids 1 - Labs CBC & Chem 7: 05/01/23 08:12 05/01/23 08:12 Labs: Abnormal Lab Results - Last 24 Hours (Table) 05/01/23 05/01/23 Range/Units 10:16 12:50 Troponin I 8.910 H* 8.450 H* (0.000-0.034) ng/mL
--- NOTE | 2023-05-02 15:00 | P.PN ---
Subjective Progress Note Date: 05/02/23 Progress note Patient is doing well from cardiac vessel standpoint. He is hemodynamically stable. He still complains of left lower extremity weakness which is not back to normal baseline HISTORY OF PRESENTING ILLNESS 72-year-old with PMH of CAD status post recent PCI on 04/28/2022 to mid RCA by Dr. Weems. He has prior history of CVA. He presented to the hospital because of generalized weakness and fall. Since patient has responded back home, he has felt significantly weak and is unable to be elevated. He has had multiple falls. He denies any loss of consciousness. Initial lab work done in the ER showed WBC 8.6, hemoglobin 14.5, platelet count 171, sodium 136, potassium 4.1, BUN 19, creatinine 0.59, glucose 131, lactate 1, calcium 10.5, troponin 11.5 urine negative for any infection EKG done in the ER showed heart rate of 83, sinus, no ST segment elevation or depression seen. Chest x-ray done in the ER showed no evidence for acute pulmonary disease CT head done showed no acute intracranial process CT cervical spine negative for any acute cervical spine fracture or subluxation CTA head and neck done showed no significant stenosis, aneurysm or thrombus in the intracranial circulation MRI of the brain shows some findings consistent with multiple sclerosis REVIEW OF SYSTEMS 14 point review of system is negative except what is mentioned above in HPI. PHYSICAL EXAMINATION Lungs: Clear to auscultation. Heart: Regular rate and rhythm, S1-S2, no S3, Abdomen: Soft nontender, Extremities: No edema, Neuro: Awake, oriented. Detailed neuro exam was not performed ASSESSMENT Left leg weakness, possibly due to CVA versus unmasking of 40 present weakness in setting of anesthesia Recent PCI to mid LAD CAD History of multiple sclerosis Prior history of CVA Echo January 2022 EF 55% PLAN Continue aspirin, Plavix, atorvastatin MRI shows some encephalomalacia not sure if it's an acute flareup of multiple sclerosis. Follow-up neurology recommendations Holding LIZETTE inhibitor due to low resting blood pressure 95/65 Resume metoprolol succinate 25 mg because of resting heart rate of 100 beats minute Consider PT OT evaluation, consider rehab evaluation Objective - Vital Signs Vital signs: Vital Signs Temp 98.2 F 05/02/23 09:11 Pulse 98 05/02/23 13:45 Resp 16 05/02/23 13:45 BP 96/65 05/02/23 11:32 Pulse Ox 96 05/02/23 11:32 FiO2 Intake & Output 05/01/23 05/02/23 05/02/23 18:59 06:59 18:59 Intake Total 698 358 Output Total 300 700 Balance 398 -700 358 Intake: Oral 698 358 Output: Urine 300 700 Other: Voiding Method Urinal Urinal Urinal Diaper Diaper # Voids 1 - Labs CBC & Chem 7: 05/01/23 08:12 05/01/23 08:12
[2023-05-02] MEDS: METOPROLOL SUCCINATE (ER) 25 MG TAB.ER.24H PO SCH (16:09)
--- NOTE | 2023-05-02 16:31 | P.PN ---
Subjective Progress Note Date: 05/02/23 The pt is seen in neurologic follow up on 2023, in collaboration with Julia Evans, via teleneurology. On todays visit, the pt is seated in the bedside chair. He reports feeling a bit better. He reportedly needed help, to get into the chair. The pt's is present. She discusses the events of the pt's previous hospitalization, at the time of his stroke. The MRI has been personally reviewed. I agree with the interpretation. I see no evidence of acute infarct. Objective - Vital Signs Vital signs: Vital Signs Temp 98.2 F 05/02/23 09:11 Pulse 102 H 05/02/23 09:11 Resp 16 05/02/23 09:11 BP 120/72 05/02/23 09:11 Pulse Ox 96 05/02/23 09:11 FiO2 Intake & Output 05/01/23 05/02/23 05/02/23 18:59 06:59 18:59 Intake Total 698 240 Output Total 300 700 Balance 398 -700 240 Intake: Oral 698 240 Output: Urine 300 700 Other: Voiding Method Urinal Urinal Urinal Diaper Diaper # Voids 1 - Exam Neurological Exam Mental status: The pt is awake, alert and oriented x3. Speech is clear. There is no dysarthria or aphasia. Cranial nerves: Pupils are equal at 2mm and reactive. Visual weinberg full. EOMI. Facial sensation intact. No facial asymmetry. Hearing grossly intact. Shoulder shrug symmetric. Tongue protrudes midline. Motor: Right upper and lower extremity strength 4/5. Left upper extremity strength 3/5. Left hip flexor 2/5. Left ankle plantar flexor 2/5 Sensation: Decreased light touch sensation involving left upper and lower extremities. Coordination: There is slowing of left sided rapid alternating movements. There is left dysmetria on finger to nose testing. There is no pronator drift. Deep tendon reflexes: 3+/4+ in the left extremities and 2+/4+ on the right. Plantar responses difficult to assess secondary to withdrawal Gait: Not assessed - Labs CBC & Chem 7: 05/01/23 08:12 05/01/23 08:12 Labs: Abnormal Lab Results - Last 24 Hours (Table) 05/01/23 05/01/23 Range/Units 10:16 12:50 Troponin I 8.910 H* 8.450 H* (0.000-0.034) ng/mL Assessment and Plan Assessment: 1. New left leg weakness, possible small infarct related to release of plaque during cardiac cath vs unmasking of already present weakness in the setting of anesthesia 2. History of Multiple sclerosis-poss. flare of MS-doubt 3. History of back pain Plan: 1. Stroke work up-PT, OT, ST 2. Restart ASA and Plavix 3. High dose statin T Time with Patient: Less than 30
--- NOTE | 2023-05-03 13:00 | P.PN ---
Subjective HISTORY OF PRESENT ILLNESS: This is a 72-year-old male who follows in the office with Dr. Weems. Patient examined this morning at the bedside. Patient denies any chest pain or pressure. He denies any shortness of breath. He reports continued weakness of his left lower extremity. The patient does report he has a history of a CVA in the past and has had chronic weakness of his left leg although it is worse over the past few days. Telemetry reveals sinus mechanism. Vital signs are stable. Blood pressure 102/65. Echocardiogram performed this admission reveals ejection fraction 55-60%, mild TR PHYSICAL EXAM: VITAL SIGNS: Reviewed. GENERAL: Well-developed in no acute distress. NECK: Supple. No JVD or thyromegaly LUNGS: Respirations even and unlabored. Lungs essentially clear to auscultation bilaterally. HEART: Regular rate and rhythm. S1 and S2 heard. EXTREMITIES: Normal range of motion. No clubbing or cyanosis. Peripheral pulses intact. No lower extremity edema. Left lower extremity weakness noted. ASSESSMENT: Acute on chronic left lower extremity weakness Coronary artery disease with recent PCI of the distal and proximal RCA, 04/28/2023 Hypotension, resolved History of CVA Hypertension Hyperlipidemia PLAN: Continue dual antiplatelet therapy secondary to recent stenting Continue high-intensity statin Continue additional current cardiac medications Neurology following. Await further recommendations Continue to monitor blood pressure. Patient is currently stable from a cardiac perspective Nurse practitioner note has been reviewed by physician. Signing provider agrees with the documented findings, assessment, and plan of care. Objective - Vital Signs Vital signs: Vital Signs Temp 98.1 F 05/03/23 08:00 Pulse 77 05/03/23 08:00 Resp 18 05/03/23 08:00 BP 102/65 05/03/23 08:00 Pulse Ox 94 L 05/03/23 08:00 FiO2 Intake & Output 05/02/23 05/03/23 05/03/23 18:59 06:59 18:59 Intake Total 358 240 720 Output Total 800 200 Balance 358 -560 520 Intake: Oral 358 240 720 Output: Urine 800 200 Other: Voiding Method Urinal Urinal Urinal Diaper Diaper Diaper # Voids 1 - Labs CBC & Chem 7: 05/01/23 08:12 05/01/23 08:12
[2023-05-04 08:58] LABS: Basophils # (A) 0.1 k/uL (0-0.2); Basophils % (A) 1 %; Eosinophils # (A) 0.3 k/uL (0-0.7); Eosinophils % (A) 4 %; HCT 37.9 % (39.0-53.0); HGB 12.4 gm/dL (13.0-17.5); Lymphocytes % (A) 16 %; MCH 31.5 pg (25.0-35.0); MCHC 32.7 g/dL (31.0-37.0); MCV 96.5 fL (80.0-100.0); Mean Platelet Volume 8.2; Monocytes # (A) 0.4 k/uL (0-1.0); Monocytes % (A) 6 %; Neutrophils # (A) 4.5 k/uL (1.3-7.7); Neutrophils % (A) 70 %; Platelet Count 142 k/uL (150-450); RBC 3.93 m/uL (4.30-5.90); RDW 13.6 % (11.5-15.5); WBC 6.4 k/uL (3.8-10.6)
[2023-05-04 09:13] LABS: African American GFR (CKD) >90 (>60 ml/min/1.73 sqM); Anion Gap 2 mmol/L; Blood Urea Nitrogen 18 mg/dL (9-20); Calcium 9.6 mg/dL (8.4-10.2); Carbon Dioxide 30 mmol/L (22-30); Chloride 103 mmol/L (98-107); Glucose 96 mg/dL (74-99); Non-African American GFR(CKD) >90 (>60 ml/min/1.73 sqM); Potassium 4.3 mmol/L (3.5-5.1); Sodium 135 mmol/L (137-145)
[2023-05-04 09:58] VITALS: RESP 16; TEMP 98
--- NOTE | 2023-05-04 11:03 | P.PN ---
Subjective HISTORY OF PRESENT ILLNESS: This is a 72-year-old male who follows in the office with Dr. Weems. Patient examined this morning at the bedside. Patient denies any chest pain or pressure. He denies any shortness of breath. He reports continued weakness of his left lower extremity. The patient does report he has a history of a CVA in the past and has had chronic weakness of his left leg although it is worse over the past few days. Telemetry reveals sinus mechanism. Vital signs are stable. Blood pressure 102/65. Echocardiogram performed this admission reveals ejection fraction 55-60%, mild TR May 04, 2023 Patient examined this morning at the bedside. Patient denies chest pain or pressure. He denies shortness of breath. He states he was up in the chair yesterday for a few hours. He has not been out of bed yet today. He continues to report weakness in his left lower extremity. Telemetry reveals sinus mechanism. Vital signs are stable. PHYSICAL EXAM: VITAL SIGNS: Reviewed. GENERAL: Well-developed in no acute distress. NECK: Supple. No JVD or thyromegaly LUNGS: Respirations even and unlabored. Lungs essentially clear to auscultation bilaterally. HEART: Regular rate and rhythm. S1 and S2 heard. EXTREMITIES: Normal range of motion. No clubbing or cyanosis. Peripheral pulses intact. No lower extremity edema. Left lower extremity weakness noted. ASSESSMENT: Acute on chronic left lower extremity weakness Coronary artery disease with recent PCI of the distal and proximal RCA, 04/28/2023 Hypotension, resolved History of CVA Hypertension Hyperlipidemia PLAN: Continue dual antiplatelet therapy secondary to recent stenting Continue high-intensity statin Continue additional current cardiac medications Patient is currently stable from a cardiac perspective Discharge per medicine Nurse practitioner note has been reviewed by physician. Signing provider agrees with the documented findings, assessment, and plan of care. Objective - Vital Signs Vital signs: Vital Signs Temp 98.0 F 05/04/23 09:41 Pulse 78 05/04/23 09:41 Resp 16 05/04/23 09:41 BP 96/59 05/04/23 09:41 Pulse Ox 98 05/04/23 09:41 FiO2 Intake & Output 05/03/23 05/04/23 05/04/23 18:59 06:59 18:59 Intake Total 1080 120 Output Total 800 600 250 Balance 280 -480 -250 Intake: Oral 1080 120 Output: Urine 800 600 250 Other: Voiding Method Urinal Urinal Diaper Diaper # Voids 1 - Labs CBC & Chem 7: 05/04/23 08:33 05/04/23 08:33 Labs: Abnormal Lab Results - Last 24 Hours (Table) 05/04/23 05/04/23 Range/Units 08:33 08:33 RBC 3.93 L (4.30-5.90) m/uL Hgb 12.4 L (13.0-17.5) gm/dL Hct 37.9 L (39.0-53.0) % Plt Count 142 L (150-450) k/uL Sodium 135 L (137-145) mmol/L Creatinine 0.64 L (0.66-1.25) mg/dL
--- NOTE | 2023-05-04 11:14 | P.PN ---
Subjective Progress Note Date: 05/03/23 patient 72-year-old gentleman with past medical history significant for CVA, coronary artery disease who presented to the ER because of multiple falls and generalized weakness. Patient was worked up outpatient by cardiology after abnormal stress test and ended up having a cardiac cath with 2 stents placed according to family. Patient was discharged home 2 days back. Patient noticed that the patient has been very weak and unable to bear any weight. Patient has been falling multiple times. No complaint of loss of consciousness. did not notice any jerking movement of any extremity. Did not notice any slurred speech or facial droop. Patient did complain of feeling weak on his left side. Patient has History of prior CVA that involved the left side but patient stated that the left side is much more weaker now. Patient denies any chest pain. Denies any nausea, vomiting or abdominal pain. Because of the symptoms, patient came to the ER Initial lab work done in the ER showed WBC 8.6, hemoglobin 14.5, platelet count 171, sodium 136, potassium 4.1, BUN 19, creatinine 0.59, glucose 131, lactate 1, calcium 10.5, troponin 11.5 urine negative for any infection EKG done in the ER showed heart rate of 83, no ST segment elevation or depression seen, no T-wave inversions seen. Chest x-ray done in the ER showed no evidence for acute pulmonary disease CT head done showed no acute intracranial process CT cervical spine negative for any acute cervical spine fracture or subluxation CTA head and neck done showed no significant stenosis, aneurysm or thrombus in the intracranial circulation Patient admitted to internal medicine service 05/02. Patient seen and examined. MRI done showed Showed no acute ischemic event, Showed small remote focal right frontal lobe hemorrhage.. States he feels much better, left-sided weakness has improved. 05/03/2093. Patient is currently lying in bed. Awake alert and oriented 2-3. On room air. Left lower extremity weakness is slightly better. No complaints of nausea vomiting and tolerating oral diet. No cough or sputum production. PT OT and is on board. Blood pressure is 98/61 this morning. Currently LIZETTE inhibitors on hold. REVIEW OF SYSTEMS: CONSTITUTIONAL: No fever, no malaise,. CARDIOVASCULAR: No chest pain, no palpitations, no syncope. PULMONARY: No shortness of breath, no cough, GASTROINTESTINAL: No diarrhea, no nausea, no vomiting, no abdominal pain. NEUROLOGICAL: No headaches, no weakness, PHYSICAL EXAMINATION: GENERAL: The patient is alert and oriented x3, not in any acute distress. Well developed, well nourished. HEENT: Pupils are round and equally reacting to light. EOMI. No scleral icterus. No conjunctival pallor. Normocephalic, atraumatic. No pharyngeal erythema. No thyromegaly. CARDIOVASCULAR: S1 and S2 present. No murmurs, rubs, or gallops. PULMONARY: Chest is clear to auscultation, no wheezing or crackles. ABDOMEN: Soft, nontender, nondistended, normoactive bowel sounds. No palpable organomegaly. MUSCULOSKELETAL: No joint swelling or deformity. EXTREMITIES: No cyanosis, clubbing, or pedal edema. NEUROLOGICAL: Alert, muscle strength is 4/5 in the left side and 5/5 in right side SKIN: No rashes. Assessment and plan Strokelike symptoms with the left lower extremity weakness, CVA ruled out. MRI showed no acute ischemic event. Showed a small remote focal right frontal lobe hemorrhages. Elevated troponin likely due to recent catheterization. History of coronary disease with recent stent placement History of CVA with left-sided weakness. History of multiple sclerosis GI and DVT prophylaxis. Plan: Monitor vital signs Monitor CBC Monitor CMP Continue telemetry monitoring Continue neuro checks Trend troponin Fall precautions Ordered 2-D echo MRI done showed Showed no acute ischemic event, Showed small remote focal right frontal lobe hemorrhage.. MRI done last time also showed a small focal right frontal lobe hemorrhage Continue aspirin and Plavix and metoprolol. LIZETTE inhibitor is on hold due to low blood pressure. Cardiology and neurology is on board. Labs and medication were reviewed... Continue with symptomatic treatment. Monitor labs and vitals. DVT and GI prophylaxis. PT OT follow-up. Objective - Vital Signs Vital signs: Vital Signs Temp 98.1 F 05/03/23 08:00 Pulse 68 05/03/23 16:00 Resp 18 05/03/23 14:00 BP 99/64 05/03/23 16:00 Pulse Ox 97 05/03/23 16:00 FiO2 Intake & Output 05/03/23 05/03/23 05/04/23 06:59 18:59 06:59 Intake Total 240 1080 Output Total 800 800 Balance -560 280 Intake: Oral 240 1080 Output: Urine 800 800 Other: Voiding Method Urinal Urinal Diaper Diaper - Labs CBC & Chem 7: 05/04/23 08:33 05/04/23 08:33
[2023-05-04 12:56] VITALS: BP 89/50; PULSE 62
--- NOTE | 2023-05-04 13:45 | P.PN ---
Subjective Progress Note Date: 05/03/23 Patient initially seen by Dr. Torres. Please refer to her notes for details. Patient has history of CVA, presents with new/worsening left leg weakness, following cardiac catheterization. MRI negative for any acute stroke or ischemia. Patient also has history of multiple sclerosis. Patient at present is laying in the bed, appears comfortable. He admits to having chronic low back pain, which is localized 6/10 without any radiation. He continues to complain about left leg weakness. Patient had cardiac catheterization performed through the right radial approach. Uncertain as to the cause of left leg weakness. Objective - Vital Signs Vital signs: Vital Signs Temp 98.1 F 05/03/23 08:00 Pulse 67 05/03/23 14:00 Resp 18 05/03/23 14:00 BP 98/61 05/03/23 12:00 Pulse Ox 93 L 05/03/23 12:00 FiO2 Intake & Output 05/02/23 05/03/23 05/03/23 18:59 06:59 18:59 Intake Total 358 240 900 Output Total 800 800 Balance 358 -560 100 Intake: Oral 358 240 900 Output: Urine 800 800 Other: Voiding Method Urinal Urinal Urinal Diaper Diaper Diaper # Voids 1 - Exam On examination patient is alert and awake. Speech and language functions are normal. Cranial nerves are significant for left facial droop. On muscle strength testing (right/left) upper extremities are normal bilaterally. No pronator drift. In the lower limbs, hip flexion 4+5-/3, adduction 5/5, abduction 5/5, knee extension 5/5, inversion 5/5, ankle dorsif lexion 5/5, peronei 5/5. Deep tendon reflexes symmetric, 1+ at the knees bilaterally, 0 ankles and plantars are flat. Sensory to touch is decreased in the left L5 dermatome, decreased in the right L 4 dermatome, as compared to the contralateral sides. In the inner thigh, right side is slightly decreased as compared to the left. The outer thighs are equal bilaterally. Examination of the hip elicited no pain. - Labs CBC & Chem 7: 05/04/23 08:33 05/04/23 08:33 Assessment and Plan Assessment: 1. New left leg weakness, possible small infarct related to release of plaque during cardiac cath vs unmasking of already present weakness in the setting of MS. MRI of the brain negative for acute stroke. 2. History of Multiple sclerosis-poss. flare of MS-doubt 3. History of back pain Plan: * Stroke workup is negative as mentioned below. * Patient does have history of MS. Uncertain if the left leg weakness is from MS exacerbation. Discussed about starting steroids, but patient declined. * MRI of the brain negative for any acute stroke. Evidence of small remote focal right frontal lobe hemorrhage. I personally reviewed MRI agree with the findings. The right frontal lobe remote hemorrhage only noticeable on SWI. * 2D echo revealed technically limited views, with EF 55 to 60%. No obvious regional wall motion abnormality. No obvious valvular dysfunction. LVEF 55 to 60%. Normal left atrial size. * CTA of head and neck are normal. No significant abnormality reported. * Hemoglobin A1c 5.4 * Lipid panel with cholesterol 131, LDL 54, HDL 55, triglycerides 103. Continue Lipitor 40 mg daily. * B12 391 * RBC folate 522, which is normal. * PT, OT, ST * Restart ASA and Plavix * Neurologically clear.
--- NOTE | 2023-05-04 14:08 | P.DS ---
Providers Date of admission: 05/03/23 08:40 Expected date of discharge: 05/04/23 Attending physician: Syed Baugh Consults: 04/30/23 20:45 Consult Physician Urgent Consulting Provider: Harmeet Frias Consult Reason/Comments: new left sided weakness, hx cva, recent heart cath Do you want consulting provider notified?: Yes 05/01/23 09:42 Consult Physician Routine Consulting Provider: Rupesh Florez Consult Reason/Comments: elevated troponin Do you want consulting provider notified?: Yes Primary care physician: James Jeffrey Hospital Course: Discharge Diagnosis Strokelike symptoms with the left lower extremity weakness, CVA ruled out. MRI showed no acute ischemic event. Showed a small remote focal right frontal lobe hemorrhages. Elevated troponin likely due to recent catheterization. History of coronary disease with recent stent placement History of CVA with left-sided weakness. History of multiple sclerosis GI and DVT prophylaxis. Hospital course Patient 72-year-old gentleman with past medical history significant for CVA, coronary artery disease who presented to the ER because of multiple falls and generalized weakness. Patient was worked up outpatient by cardiology after abnormal stress test and ended up having a cardiac cath with 2 stents placed according to family. Patient was discharged home 2 days back. Patient noticed that the patient has been very weak and unable to bear any weight. Patient has been falling multiple times. No complaint of loss of consciousness. did not notice any jerking movement of any extremity. Did not notice any slurred speech or facial droop. Patient did complain of feeling weak on his left side. Patient has History of prior CVA that involved the left side but patient stated that the left side is much more weaker now. Patient denies any chest pain. Denies any nausea, vomiting or abdominal pain. Because of the symptoms, patient came to the ER Initial lab work done in the ER showed WBC 8.6, hemoglobin 14.5, platelet count 171, sodium 136, potassium 4.1, BUN 19, creatinine 0.59, glucose 131, lactate 1, calcium 10.5, troponin 11.5 urine negative for any infection EKG done in the ER showed heart rate of 83, no ST segment elevation or depression seen, no T-wave inversions seen. Chest x-ray done in the ER showed no evidence for acute pulmonary disease CT head done showed no acute intracranial process CT cervical spine negative for any acute cervical spine fracture or subluxation CTA head and neck done showed no significant stenosis, aneurysm or thrombus in the intracranial circulation Patient admitted to internal medicine service 05/02. Patient seen and examined. MRI done showed Showed no acute ischemic event, Showed small remote focal right frontal lobe hemorrhage.. States he feels much better, left-sided weakness has improved. 05/03/2093. Patient is currently lying in bed. Awake alert and oriented 2-3. On room air. Left lower extremity weakness is slightly better. No complaints of nausea vomiting and tolerating oral diet. No cough or sputum production. PTOT and is on board. Blood pressure is 98/61 this morning. Currently LIZETTE inhibitors on hold. 05/04/2023 patient is resting in the bed. Awake alert and oriented 2-3. No complaints of chest pain or shortness of breath. Left lower extremity weakness is much improved. Participating in PT OT. Blood pressure is fairly controlled. LIZETTE inhibitor is on hold due to low blood pressure. Otherwise patient denied any dizziness or lightheadedness. No other acute overnight issues. Patient is being discharged to rehab today. PHYSICAL EXAMINATION: GENERAL: The patient is alert and oriented x3, not in any acute distress. Well developed, well nourished. HEENT: Pupils are round and equally reacting to light. EOMI. No scleral icterus. No conjunctival pallor. Normocephalic, atraumatic. No pharyngeal erythema. No thyromegaly. CARDIOVASCULAR: S1 and S2 present. No murmurs, rubs, or gallops. PULMONARY: Chest is clear to auscultation, no wheezing or crackles. ABDOMEN: Soft, nontender, nondistended, normoactive bowel sounds. No palpable organomegaly. MUSCULOSKELETAL: No joint swelling or deformity. EXTREMITIES: No cyanosis, clubbing, or pedal edema. NEUROLOGICAL: Alert, muscle strength is 4/5 in the left side and 5/5 in right side SKIN: No rashes. Vital Signs 05/04/23 05/04/23 09:41 12:41 Temperature 98.0 F Pulse Rate [ 78 62 Pulse Oximetery ] Respiratory 16 Rate Blood Pressure 96/59 89/50 [Right Arm Supine] O2 Sat by Pulse 98 97 Oximetry Total time taken greater than 35 minutes including 18 minutes for counseling and coordination of care. Patient Condition at Discharge: Stable Plan - Discharge Summary Discharge Rx Participant: Yes New Discharge Prescriptions: New Metoprolol Succinate (ER) [Toprol XL] 25 mg PO DAILY #30 tab Continue Tamsulosin HCl [Flomax] 0.8 mg PO DAILY Clopidogrel [Plavix] 75 mg PO DAILY #90 tablet Atorvastatin Calcium [Lipitor] 40 mg PO DAILY #90 tab HYDROcodone/APAP 10-325MG [[place] 10-325] 1 tab PO TID Cholecalciferol [Vitamin D3 (25 Mcg = 1000 Iu)] 25 mcg PO DAILY Aspirin [Adult Low Dose Aspirin EC] 162 mg PO DAILY Docusate [Colace] 200 mg PO DAILY DULoxetine HCL [Cymbalta] 60 mg PO DAILY Discharge Medication List Tamsulosin HCl [Flomax] 0.8 mg PO DAILY 01/23/22 [History] Aspirin [Adult Low Dose Aspirin EC] 162 mg PO DAILY 04/27/23 [History] Cholecalciferol [Vitamin D3 (25 Mcg = 1000 Iu)] 25 mcg PO DAILY 04/27/23 [History] Atorvastatin Calcium [Lipitor] 40 mg PO DAILY #90 tab 04/29/23 [Rx] Clopidogrel [Plavix] 75 mg PO DAILY #90 tablet 04/29/23 [Rx] DULoxetine HCL [Cymbalta] 60 mg PO DAILY 04/30/23 [History] Docusate [Colace] 200 mg PO DAILY 04/30/23 [History] HYDROcodone/APAP 10-325MG [[place] 10-325] 1 tab PO TID 04/30/23 [History] Metoprolol Succinate (ER) [Toprol XL] 25 mg PO DAILY #30 tab 05/04/23 [Rx] Follow up Appointment(s)/Referral(s): James Jeffrey MD [Primary Care Provider] - 1-2 days Discharge Disposition: TRANSFER TO SNF/F
--- NOTE | 2023-05-10 13:41 | CDI ---
Documentation Clarification Form Date: 05/10/2023 From: Sridevi Nielson Admit Date: 05/03/2023 08:40:00 AM Patient Name: Callie Álvarez Visit Number: [id number] Discharge Date: 05/04/2023 03:39:00 PM ATTENTION: The Clinical Documentation Specialists (CDI) and [facility] Coding Staff appreciate your assistance in clarifying documentation. Please respond to the clarification below the line at the bottom and electronically sign. The CDI & [facility] Coding staff will review the response and follow-up if needed. Please note: Queries are made part of the Legal Health Record. If you have any questions, please contact the author of this message via ITS. Dr. Artie Bustamante Your patient has the documented symptom of weakness as the reason for admission. Additional clarification regarding the etiology/cause of this symptom is requested. History/Risk Factors: 72yo w/ a h/o a remote CVA w/ residual L-sided weakness, MS, and CAD presented with increased left lower extremity weakness. Clinical Indicators: Neuro PN 05/04, new left leg weakness, possible small infarct related to release of plaque during cardiac cath vs unmasking of already present weakness in the setting of MS. MRI of the brain negative for acute stroke. Patient does have a history of MS. Uncertain if the left leg weakness is from MS exacerbation. Discussed about starting steroids, but patient declined. MRI brain 05/01: sm remote focal R frontal lobe hemorrhage, marked abnormal signal intensity within the white matter both cerebral hemispheres consistent with the provided history of multiple sclerosis, mild to mod age-appropriate atrophy. Treatment: PT/OT Is there a corresponding diagnosis/etiology for this symptom of weakness? [ ] Age related physical debility [ x ] Multiple sclerosis exacerbation [ ] Unilateral weakness due to current CVA [ ] Unilateral weakness due to old CVA [ ] Unable to determine [ ] Other, please specify (Template Last Reviewed: May 2020) MTDD
== END 2023-05-04 15:39 | DRG 59 ==
LOC: EC 15:21 → 3SCARD 20:46 → OBSVTOIN 05-03 08:40
PROVIDERS: ADMIT Hospitalist; ATTEND Hospitalist
DX: G35 Multiple sclerosis (principal); I69.354 Hemiplegia and hemiparesis following cerebral infarction affecting left non-dominant side; R53.1 Weakness; E78.5 Hyperlipidemia, unspecified; I25.10 Atherosclerotic heart disease of native coronary artery without angina pectoris; I95.9 Hypotension, unspecified; I07.1 Rheumatic tricuspid insufficiency; I73.9 Peripheral vascular disease, unspecified; I10 Essential (primary) hypertension; G89.29 Other chronic pain; I49.3 Ventricular premature depolarization; R29.6 Repeated falls; Z79.02 Long term (current) use of antithrombotics/antiplatelets; Z79.82 Long term (current) use of aspirin; Z79.899 Other long term (current) drug therapy; Z87.891 Personal history of nicotine dependence; Z95.5 Presence of coronary angioplasty implant and graft; Z87.19 Personal history of other diseases of the digestive system
CPT/HCPCS: 36415; 70450; 70496; 70498; 70551; 71046; 72125; 80048; 80053; 80061; 81003; 82607; 82747; 83036; 83605; 83735; 83880; 84484; 85025; 85610; 85730; 93306; 99285

== ENCOUNTER 2023-07-07 10:56 | Inpatient (IN) | payer BC, MEDICARE ==
--- NOTE | 2023-07-07 11:24 | ED ---
Weakness HPI - General Chief complaint: Weakness Stated complaint: Weakness Time Seen by Provider: 07/07/23 11:22 Source: patient, EMS, RN notes reviewed Mode of arrival: EMS Limitations: physical limitation - History of Present Illness Initial comments: Patient is a 72-year-old male presented to the ER via EMS with chief complaint of weakness. Patient states for the past 2 days he has been feeling weak. He states this morning he was unable to pivot and ambulate like normal. Patient lives at home with and children. He states his recently had a head cold. He reports cough, congestion and mild sore throat. He states he has a history of a CVA in 2021. Denies any fevers, chills, chest pain, shortness of breath, abdominal pain, diarrhea, urinary complaints or peripheral edema. - Related Data Home Medications Medication Instructions Recorded Confirmed Tamsulosin HCl [Flomax] 0.8 mg PO DAILY 01/23/22 04/30/23 Aspirin [Adult Low Dose Aspirin EC] 162 mg PO DAILY 04/27/23 04/30/23 Cholecalciferol [Vitamin D3 (25 25 mcg PO DAILY 04/27/23 04/30/23 Mcg = 1000 Iu)] DULoxetine HCL [Cymbalta] 60 mg PO DAILY 04/30/23 04/30/23 Docusate [Colace] 200 mg PO DAILY 04/30/23 04/30/23 Previous Rx's Medication Instructions Recorded Atorvastatin Calcium [Lipitor] 40 mg PO DAILY #90 tab 04/29/23 Clopidogrel [Plavix] 75 mg PO DAILY #90 tablet 04/29/23 HYDROcodone/APAP 10-325MG [[place] 1 tab PO TID 3 Days #9 tab 05/04/23 10-325] Metoprolol Succinate (ER) [Toprol 25 mg PO DAILY #30 tab 05/04/23 XL] Allergies Allergy/AdvReac Type Severity Reaction Status Date / Time mold Allergy Cough, Verified 07/07/23 11:09 bronchitis, feverish, watery eyes, runny nose pollen extracts Allergy Cough, Verified 07/07/23 11:09 bronchitis, feverish, watery eyes, runny nose environmental Allergy Intermediate Cough, Uncoded 07/07/23 11:09 bronchitis, feverish, watery eyes, runny nose dust Allergy Cough, Uncoded 07/07/23 11:09 bronchitis, feverish, watery eyes, runny nose Review of Systems ROS Statement: Those systems with pertinent positive or pertinent negative responses have been documented in the HPI. ROS Other: All systems not noted in ROS Statement are negative. Past Medical History Past Medical History: CVA/TIA, GERD/Reflux, Hyperlipidemia, Sleep Apnea/CPAP/BIPAP Additional Past Medical History / Comment(s): multiple sclerosis, PAD History of Any Multi-Drug Resistant Organisms: None Reported Past Surgical History: Appendectomy, Back Surgery, Bowel Resection, Hernia Repair, Orthopedic Surgery, Tonsillectomy Additional Past Surgical History / Comment(s): vascular bypass, left wrist x2 Past Anesthesia/Blood Transfusion Reactions: No Reported Reaction Past Psychological History: No Psychological Hx Reported Smoking Status: Former smoker Past Alcohol Use History: None Reported Past Drug Use History: None Reported General Exam General appearance: alert, in no apparent distress Head exam: Present: atraumatic, normocephalic, normal inspection Eye exam: Present: normal appearance, PERRL, EOMI. Absent: scleral icterus, conjunctival injection, periorbital swelling ENT exam: Present: normal exam, normal oropharynx, mucous membranes moist, TM's normal bilaterally Neck exam: Present: normal inspection. Absent: tenderness, meningismus, lymphadenopathy Respiratory exam: Present: normal lung sounds bilaterally. Absent: respiratory distress, wheezes, rales, rhonchi, stridor Cardiovascular Exam: Present: tachycardia, irregular rhythm GI/Abdominal exam: Present: soft, normal bowel sounds. Absent: distended, tenderness, guarding, rebound, rigid Extremities exam: Present: normal inspection, full ROM, normal capillary refill. Absent: tenderness, pedal edema, joint swelling, calf tenderness Neurological exam: Present: alert, oriented X3, CN II-XII intact Psychiatric exam: Present: normal affect, normal mood Skin exam: Present: warm, dry, intact, normal color. Absent: rash Course Vital Signs 07/07/23 07/07/23 07/07/23 10:58 12:42 13:38 Temperature 97.7 F 98 F Pulse Rate 120 H 112 H 133 H Respiratory 20 14 16 Rate Blood Pressure 116/68 102/17 120/79 O2 Sat by Pulse 97 94 L Oximetry 07/07/23 14:45 Temperature Pulse Rate 122 H Respiratory 16 Rate Blood Pressure 113/73 O2 Sat by Pulse 97 Oximetry - Reevaluation(s) Reevaluation #1: 07/07/23 15:39 Case discussed with , [facility], who accepted medical admission. Medical Decision Making - Medical Decision Making Was pt. sent in by a medical professional or institution ([facility], [facility], urgent care, hospital, or [facility]...) When possible be specific @ -No Did you speak to anyone other than the patient for history (EMS, parent, family, police, friend...)? What history was obtained from this source @ -No Did you review nursing and triage notes (agree or disagree)? Why? @ -I reviewed and agree with nursing and triage notes Were old charts reviewed (outside hosp., previous admission, EMS record, old EKG, old radiological studies, urgent care reports/EKG's, [facility] records)? Report findings @ -No old charts were reviewed Differential Diagnosis (chest pain, altered mental status, abdominal pain women, abdominal pain men, vaginal bleeding, weakness, fever, dyspnea, syncope, headache, dizziness, GI bleed, back pain, seizure, CVA, palpatations, mental health, musculoskeletal)? @ -Differential Weakness: Hypoglycemia, shock, sepsis, hyponatremia, anemia, in fection, [place], ETOH, adverse medicine reaction, overdose, stroke, this is not meant to be an all-inclusive list. EKG interpreted by me (3pts min.). @ -As above X-rays interpreted by me (1pt min.). @ -Chest x-ray interpreted by me negative for acute cardiopulmonary process. CT interpreted by me (1pt min.). @ -None done U/S interpreted by me (1pt. min.). @ -None done What testing was considered but not performed or refused? (CT, X-rays, U/S, labs)? Why? @ -None What meds were considered but not given or refused? Why? @ -None Did you discuss the management of the patient with other professionals (professionals i.e. [facility], [facility], lab, RT, psych nurse, social services analyst, engine dynamometer tester, teacher, access control officer, registered nurse hh case manager)? Give summary @ -Yes, case discussed with [facility], Dr. Michael, who accepted medical admission. Was smoking cessation discussed for >3mins.? @ -No Was critical care preformed (if so, how long)? @ -No Were there social determinants of health that impacted care today? How? (Homeles sness, low income, unemployed, alcoholism, drug addiction, transportation, low edu. Level, literacy, decrease access to med. care, mcc, rehab)? @ -No Was there de-escalation of care discussed even if they declined (Discuss DNR or withdrawal of care, Hospice)? DNR status @ -No What co-morbidities impacted this encounter? (DM, HTN, Smoking, COPD, CAD, Cancer, CVA, ARF, Chemo, Hep., AIDS, mental health diagnosis, sleep apnea, morbid obesity)? @ -Paroxysmal atrial fibrillation, CVA Was patient admitted / discharged? Hospital course, mention meds given and route, prescriptions, significant lab abnormalities, going to OR and other pertinent info. @ -Admitted Patient is a 72-year-old male presented to the ER via EMS with a chief complaint of weakness. History and physical exam completed. Vitals stable. Patient no signs of acute distress and nontoxic-appearing. No acute neurological findings on exam. Labs obtained remarkable for sodium 132 otherwise unremarkable. COVID- positive. Influenza and RSV negative. Chest x-ray interpreted by me negative for acute cardiopulmonary process. Urinalysis pending. EKG significant for atrial fibrillation with RVR heart rate of 126. Chest x-ray negative for acute cardiopulmonary process. Patient takes metoprolol 25 mg and Plavix at home. Not currently on a blood thinner. Results discussed with patient, all questions answered. Patient received IV fluids and metoprolol 2.5 mg for rate control without success. Upon reevaluation heart rate in 120-130 bpm. Admission was considered for cardiology consult and rate control. Case discussed with [facility], , who accepted medical admission. Patient was started on IV Cardizem and heparin. Cardiology on consult. Patient agreeable for admission. Patient admitted in stable condition. Case discussed with ED attending, Dr. Valenzuela. Undiagnosed new problem with uncertain prognosis? @ -No Drug Therapy requiring intensive monitoring for toxicity (Heparin, Nitro, Insulin, Cardizem)? @ -Yes, Cardizem and heparin Were any procedures done? @ -No Diagnosis/symptom? @ -Atrial fibrillation with RVR/COVID-19/viral sinusitis Acute, or Chronic, or Acute on Chronic? @ -Acute Uncomplicated (without systemic symptoms) or Complicated (systemic symptoms)? @ -Complicated Side effects of treatment? @ -No Exacerbation, Progression, or Severe Exacerbation? @ -No Poses a threat to life or bodily function? How? (Chest pain, [place], [place], pneumonia, PE, COPD, DKA, ARF, appy, cholecystitis, CVA, Diverticulitis, Homicidal, Suicidal, threat to staff... and all critical care pts) @ -Yes, atrial fibrillation can cause blood clots which can lead to stroke. - Lab Data Result diagrams: 07/07/23 11:25 07/07/23 11:25 Lab Results 07/07/23 07/07/23 07/07/23 Range/Units 11:25 11:25 11:25 WBC 6.5 (3.8-10.6) k/uL RBC 5.06 (4.30-5.90) m/uL Hgb 15.3 (13.0-17.5) gm/dL Hct 47.3 (39.0-53.0) % MCV 93.5 (80.0-100.0) fL MCH 30.3 (25.0-35.0) pg MCHC 32.4 (31.0-37.0) g/dL RDW 13.9 (11.5-15.5) % Plt Count 133 L (150-450) k/uL MPV 8.8 Neutrophils % 70 % Lymphocytes % 17 % Monocytes % 8 % Eosinophils % 1 % Basophils % 1 % Neutrophils # 4.6 (1.3-7.7) k/uL Lymphocytes # 1.1 (1.0-4.8) k/uL Monocytes # 0.5 (0-1.0) k/uL Eosinophils # 0.1 (0-0.7) k/uL Basophils # 0.1 (0-0.2) k/uL PT 10.8 (10.0-12.5) sec INR 1.0 (<1.2) APTT 25.2 (22.0-30.0) sec Sodium 132 L (137-145) mmol/L Potassium 4.5 (3.5-5.1) mmol/L Chloride 103 (98-107) mmol/L Carbon Dioxide 22 (22-30) mmol/L Anion Gap 7 mmol/L BUN 15 (9-20) mg/dL Creatinine 0.71 (0.66-1.25) mg/dL Est GFR (CKD-EPI)AfAm >90 (>60 ml/min/1.73 sqM) Est GFR (CKD-EPI)NonAf >90 (>60 ml/min/1.73 sqM) Glucose 108 H (74-99) mg/dL Plasma Lactic Acid Berny (0.7-2.0) mmol/L Calcium 10.2 (8.4-10.2) mg/dL Phosphorus 2.8 (2.5-4.5) mg/dL Magnesium 1.8 (1.6-2.3) mg/dL Total Bilirubin 0.9 (0.2-1.3) mg/dL AST 30 (17-59) U/L ALT 13 (4-49) U/L Alkaline Phosphatase 105 (38-126) U/L Troponin I (0.000-0.034) ng/mL Total Protein 6.5 (6.3-8.2) g/dL Albumin 3.7 (3.5-5.0) g/dL Influenza Type A (PCR) (Not Detectd) Influenza Type B (PCR) (Not Detectd) RSV (PCR) (Not Detectd) SARS-CoV-2 (PCR) (Not Detectd) 07/07/23 07/07/23 07/07/23 Range/Units 11:25 11:25 11:25 WBC (3.8-10.6) k/uL RBC (4.30-5.90) m/uL Hgb (13.0-17.5) gm/dL Hct (39.0-53.0) % MCV (80.0-100.0) fL MCH (25.0-35.0) pg MCHC (31.0-37.0) g/dL RDW (11.5-15.5) % Plt Count (150-450) k/uL MPV Neutrophils % % Lymphocytes % % Monocytes % % Eosinophils % % Basophils % % Neutrophils # (1.3-7.7) k/uL Lymphocytes # (1.0-4.8) k/uL Monocytes # (0-1.0) k/uL Eosinophils # (0-0.7) k/uL Basophils # (0-0.2) k/uL PT (10.0-12.5) sec INR (<1.2) APTT (22.0-30.0) sec Sodium (137-145) mmol/L Potassium (3.5-5.1) mmol/L Chloride (98-107) mmol/L Carbon Dioxide (22-30) mmol/L Anion Gap mmol/L BUN (9-20) mg/dL Creatinine (0.66-1.25) mg/dL Est GFR (CKD-EPI)AfAm (>60 ml/min/1.73 sqM) Est GFR (CKD-EPI)NonAf (>60 ml/min/1.73 sqM) Glucose (74-99) mg/dL Plasma Lactic Acid Berny 1.0 (0.7-2.0) mmol/L Calcium (8.4-10.2) mg/dL Phosphorus (2.5-4.5) mg/dL Magnesium (1.6-2.3) mg/dL Total Bilirubin (0.2-1.3) mg/dL AST (17-59) U/L ALT (4-49) U/L Alkaline Phosphatase (38-126) U/L Troponin I 0.013 (0.000-0.034) ng/mL Total Protein (6.3-8.2) g/dL Albumin (3.5-5.0) g/dL Influenza Type A (PCR) Not Detected (Not Detectd) Influenza Type B (PCR) Not Detected (Not Detectd) RSV (PCR) Not Detected (Not Detectd) SARS-CoV-2 (PCR) Detected A (Not Detectd) - EKG Data -: EKG Interpreted by Mo EKG Comments: EKG at 11: 22 showing atrial fibrillation with RVR. Occasional PVC. Ventricular rate 126, QRS duration 93, QT/QTc 298/373. - Radiology Data Radiology results: report reviewed, image reviewed Disposition Clinical Impression: COVID-19, Acute viral sinusitis, Atrial fibrillation with RVR Disposition: ADMITTED IP TO THIS HOSP Condition: Good Referrals: James Jeffrey MD [Primary Care Provider] - 1-2 days Time of Disposition: 15:35
[2023-07-07] MEDS: SODIUM CHLORIDE 0.9% 500 ML 500 ML IV STA ×2 (11:37→12:37)
[2023-07-07 11:49] LABS: Basophils # (A) 0.1 k/uL (0-0.2); Basophils % (A) 1 %; Eosinophils # (A) 0.1 k/uL (0-0.7); Eosinophils % (A) 1 %; HCT 47.3 % (39.0-53.0); HGB 15.3 gm/dL (13.0-17.5); Lymphocytes # (A) 1.1 k/uL (1.0-4.8); Lymphocytes % (A) 17 %; MCH 30.3 pg (25.0-35.0); MCHC 32.4 g/dL (31.0-37.0); MCV 93.5 fL (80.0-100.0); Mean Platelet Volume 8.8; Monocytes # (A) 0.5 k/uL (0-1.0); Monocytes % (A) 8 %; Neutrophils # (A) 4.6 k/uL (1.3-7.7); Neutrophils % (A) 70 %; Platelet Count 133 k/uL (150-450); RBC 5.06 m/uL (4.30-5.90); RDW 13.9 % (11.5-15.5); WBC 6.5 k/uL (3.8-10.6)
[2023-07-07 11:56] LABS: Partial Thromboplastin Time 25.2 sec (22.0-30.0); Prothrombin Time 10.8 sec (10.0-12.5)
[2023-07-07 12:10] LABS: ALT 13 U/L (4-49); AST 30 U/L (17-59); African American GFR (CKD) >90 (>60 ml/min/1.73 sqM); Albumin 3.7 g/dL (3.5-5.0); Alkaline Phosphatase 105 U/L (38-126); Anion Gap 7 mmol/L; Blood Urea Nitrogen 15 mg/dL (9-20); Calcium 10.2 mg/dL (8.4-10.2); Carbon Dioxide 22 mmol/L (22-30); Chloride 103 mmol/L (98-107); Glucose 108 mg/dL (74-99); Magnesium 1.8 mg/dL (1.6-2.3); Non-African American GFR(CKD) >90 (>60 ml/min/1.73 sqM); Phosphorus 2.8 mg/dL (2.5-4.5); Sodium 132 mmol/L (137-145); Total Bilirubin 0.9 mg/dL (0.2-1.3); Total Protein 6.5 g/dL (6.3-8.2)
--- NOTE | 2023-07-07 12:23 | XR ---
EXAMINATION TYPE: XR chest 2V DATE OF EXAM: 07/07/2023 COMPARISON: 04/30/2023 TECHNIQUE: PA and lateral views submitted. HISTORY: Weakness FINDINGS: The lungs are clear and there is no pneumothorax, pleural effusion, or focal pneumonia. Basilar subs egmental atelectasis favored over pneumonia. Diffuse osteopenia and shoulder arthropathy. Suspect a c oronary stent. Heart size normal and no overt failure. Osseous structures demonstrate hypertrophic an d degenerative changes of the spine. IMPRESSION: 1. Basilar atelectasis favored over pneumonia..
[2023-07-07 12:38] LABS: Potassium 4.5 mmol/L (3.5-5.1)
[2023-07-07] MEDS: SODIUM CHLORIDE 0.9% 1,000 ML IV STA (14:36)
[2023-07-07] MEDS: METOPROLOL TARTRATE 5 MG/5 ML VIAL IVP ONE (14:37)
[2023-07-07] MEDS ORDERED: ONDANSETRON 4 MG/2 ML VIAL IVP PRN (15:15)
[2023-07-07] MEDS ORDERED: NALOXONE 0.4 MG/ML 1 ML VIAL IV PRN (15:15)
[2023-07-07] MEDS ORDERED: HYDROcodone/APAP 5-325MG 1 EACH TAB PO PRN (15:15)
[2023-07-07] MEDS ORDERED: HEPARIN SODIUM 1,000 UN/ML (10ML VL) IV PRN (15:21)
[2023-07-07] MEDS: DILTIAZEM 125 MG in SODIUM CHLORIDE 0.9% 100 ML IV SCH (16:05)
[2023-07-07] MEDS: DILTIAZEM DRIP BOLUS FROM BAG 1 MG SOLN IV ONE (16:10)
[2023-07-07] MEDS: HEPARIN SOD,PORK IN 0.45% NACL 25,000 UNIT in 0.45% NACL 1 250ML.BAG IV SCH (16:13)
[2023-07-07] MEDS: HEPARIN SODIUM 1,000 UN/ML (10ML VL) IV ONE (16:13)
[2023-07-07] MEDS ORDERED: ALBUTEROL NEBULIZED 2.5 MG/3 ML INHALATION PRN (16:25)
[2023-07-07] MEDS ORDERED: ACETAMINOPHEN TAB 325 MG TAB PO PRN (16:25)
[2023-07-07] MEDS: HYDROcodone/APAP 10-325MG 1 EACH TAB PO SCH (19:38)
[2023-07-07] MEDS: CLOPIDOGREL 75 MG TAB PO SCH (19:38)
[2023-07-07] MEDS: SODIUM CHLORIDE 0.9% 1,000 ML IV SCH (19:43)
[2023-07-07 20:18] LABS: Appearance,Urine Clear (Clear); Bilirubin,Urine Negative (Negative); Blood,Urine Trace (Negative); Color,Urine Yellow; Glucose,Urine (UA) Negative (Negative); Ketones,Urine Trace (Negative); Leukocyte Esterase,Urine Negative (Negative); Mucus,Urine Occasional /hpf; Nitrite,Urine Negative (Negative); PH, Urine 6.5 (5.0-8.0); Protein,Urine Negative (Negative); RBC,Urine 2 /hpf (0-5); Specific Gravity,Urine 1.018 (1.001-1.035); Urobilinogen,Urine <2.0 mg/dL (<2.0); WBC,Urine 1 /hpf (0-5)
[2023-07-07] MEDS: methylPREDNISolone SOD SUCCI 40 MG/ML 1 ML VIAL IV SCH (21:56)
[2023-07-08] MEDS ORDERED: ALBUTEROL HFA INHALER INHALATION PRN (03:58)
--- NOTE | 2023-07-08 04:44 | P.CNPUL ---
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 Patient presented to the emergency room yesterday morning with a chief complaint of increased lower extremity weakness and troubles ambulating. He has history of frequent falls. He has chronic left lower extremity weakness that is residual from a prior CVA. He also reports URI-like symptoms that started 1 to 2 weeks ago. Admits postnasal drip, cough, sore throat, and sinus pressure. He denies any significant shortness of breath. He has been coughing, mostly nonproductive. He denies any fevers. His recently had similar symptoms. He denies any pre- existing lung disease such as COPD or asthma. He is a former tobacco smoker, qu itting in 2020. Denies any gastrointestinal symptoms such as nausea, vomiting, diarrhea. On arrival to the emergency room, he did test positive for COVID. Patient states that he has had COVID multiple times in the past. He also was found to be in atrial fibrillation with RVR. He was started on a low intensity heparin infusion per protocol. He was also started on a Cardizem infusion which is currently infusing at 5 mg/h. He is currently lying in bed, on 2 L/min nasal cannula, in no acute distress. Heart rate is currently better controlled, around 80 bpm. Blood pressure normotensive. He states that he does have history of A- fib, but this is not listed in his medical record and he is not on any chronic anticoagulation outpatient. He denies any heart palpitations, lightheadedness, syncopal events. Denies any chest pain. He did have a recent heart catheterization done 04/28/2023 and received PCI/stenting of the RCA x 2. Follow-up echocardiogram shows a preserved left ventricular ejection fraction of 55 to 60%. Chest x-ray done this admission shows basilar atelectasis, doubt pneumonia. CBC unremarkable. No leukocytosis. CMP also unremarkable. Normal saline is infusing at 75 mL/h. Troponin 0.013. Most recent APTT supratherapeutic at 82.1, heparin infusion was adjusted. Afebrile. Vital signs are stable. Review of Systems REVIEW OF SYSTEMS: CONSTITUTIONAL: Denies any recent significant weight loss or weight gain. EYES: Admits chronic double vision EARS, NOSE, MOUTH, THROAT: Denies headaches, denies sore throat. CARDIOVASCULAR: Denies chest pain, palpitations or syncopal episodes. RESPIRATORY: See HPI. GASTROINTESTINAL: Denies change in appetite, abdominal pain, nausea and vomiting, or diarrhea GENITOURINARY: Denies hematuria, denies infections. MUSKULOSKELETAL: Denies pain, denies swelling. Admits chronic left lower extremity weakness,, but overall says that both of his lower extremities are more weak than baseline. Admits difficulty ambulating. INTEGUMENTARY: Denies rash, denies eczema. Admits dry skin and pruritus NEUROLOGICAL: Denies recent memory loss, no recent seizure activity. PSYCHIATRIC: Denies anxiety, denies depression. HEMATOLOGIC/LYMPHATIC: Denies anemia, denies enlarged lymph node Past Medical History Past Medical History: CVA/TIA, GERD/Reflux, Hyperlipidemia, Sleep Apnea/CPAP/BIPAP Additional Past Medical History / Comment(s): multiple sclerosis, PAD History of Any Multi-Drug Resistant Organisms: None Reported Past Surgical History: Appendectomy, Back Surgery, Bowel Resection, Hernia Repair, Orthopedic Surgery, Tonsillectomy Additional Past Surgical History / Comment(s): vascular bypass, left wrist x2 Past Anesthesia/Blood Transfusion Reactions: No Reported Reaction Past Psychological History: No Psychological Hx Reported Smoking Status: Former smoker Past Alcohol Use History: None Reported Past Drug Use History: None Reported Medications and Allergies Home Medications Medication Instructions Recorded Confirmed Type Tamsulosin HCl [Flomax] 0.8 mg PO DAILY 01/23/22 07/07/23 History Aspirin [Adult Low Dose Aspirin EC] 162 mg PO DAILY 04/27/23 07/07/23 History Cholecalciferol [Vitamin D3 (25 25 mcg PO DAILY 04/27/23 07/07/23 History Mcg = 1000 Iu)] Atorvastatin Calcium [Lipitor] 40 mg PO DAILY #90 tab 04/29/23 07/07/23 Rx Clopidogrel [Plavix] 75 mg PO DAILY #90 tablet 04/29/23 07/07/23 Rx DULoxetine HCL [Cymbalta] 60 mg PO DAILY 04/30/23 07/07/23 History Docusate [Colace] 100 mg PO DAILY 04/30/23 07/07/23 History HYDROcodone/APAP 10-325MG [[place] 1 tab PO TID 3 Days #9 tab 05/04/23 07/07/23 Rx 10-325] Metoprolol Succinate (ER) [Toprol 25 mg PO DAILY #30 tab 05/04/23 07/07/23 Rx XL] Allergies Allergy/AdvReac Type Severity Reaction Status Date / Time mold Allergy Cough, Verified 07/07/23 16:09 bronchitis, feverish, watery eyes, runny nose pollen extracts Allergy Cough, Verified 07/07/23 16:09 bronchitis, feverish, watery eyes, runny nose environmental Allergy Intermediate Cough, Uncoded 07/07/23 16:09 bronchitis, feverish, watery eyes, runny nose dust Allergy Cough, Uncoded 07/07/23 16:09 bronchitis, feverish, watery eyes, runny nose Physical Exam Vitals: Vital Signs Temp Pulse Pulse Resp BP BP Pulse Ox 07/08/23 00:00 98.1 F 80 19 114/59 97 07/07/23 23:35 89 22 100/68 96 07/07/23 22:35 95 17 94/63 100 07/07/23 22:00 83 10 L 113/97 07/07/23 19:00 92 15 105/78 07/07/23 18:00 96 20 106/69 07/07/23 17:00 87 14 106/73 96 07/07/23 16:00 122 H 7 L 101/68 99 07/07/23 14:45 122 H 16 113/73 97 07/07/23 13:38 133 H 16 120/79 94 L 07/07/23 12:42 98 F 112 H 14 102/17 07/07/23 10:58 97.7 F 120 H 20 116/68 97 Intake and Output 07/07/23 07/07/23 07/08/23 14:59 22:59 06:59 Intake Total 63.933 Output Total 300 Balance -236.067 Intake: Intake, IV Titration 63.933 Amount Heparin Sod,Pork in 0.45% 63.933 NaCl 25,000 unit In 0.45 % NaCl 1 250ml.bag @ 12 UNITS/KG/HR 7.893 mls/hr IV .Q24H [facility] Rx#: [id number] Output: Urine 300 Other: Voiding Method Urinal Weight 65.771 kg 65.771 kg GENERAL EXAM: Alert, 72-year-old white male, comfortable in no apparent d istress. HEAD: Normocephalic and atraumatic EYES: Normal reaction of pupils, equal size. NOSE: Clear with pink turbinates. THROAT: No erythema or exudates. Edentulous. NECK: No masses, no JVD. CHEST: No chest wall deformity. LUNGS: Equal air entry with no crackles, wheeze, rhonchi or dullness. On 2 L/min nasal cannula. No conversational dyspnea or accessory muscle use.. CVS: S1 and S2 normal with no audible murmur, irregular rhythm. No extra heart sounds ABDOMEN: No hepatosplenomegaly, active bowel sounds, no guarding or rigidity. SPINE: No scoliosis or deformity SKIN: Excoriation of bilateral extremities and upper back. CENTRAL NERVOUS SYSTEM: Cranial nerves II through XII appear intact. Difficult to discern dysarthria, as the patient does not have his dentures in. Left lower extremity strength graded 3/5, right lower extremity strength graded 4/5 lateral upper extremity strength graded 5/5. Patellar DTRs bilaterally 1+. Lower extremity mild ataxia noted, out of proportion to weakness. Examination of gait was deferred EXTREMITIES: There is no peripheral edema, clubbing, or cyanosis. Peripheral pulses are intact. Results - Laboratory Findings CBC and BMP: 07/07/23 11:25 07/07/23 11:25 PT/INR, D-dimer PT 10.8 sec (10.0-12.5) 07/07/23 11:25 INR 1.0 (<1.2) 07/07/23 11:25 Abnormal lab findings: Abnormal Labs 07/07/23 07/07/23 07/07/23 11:25 11:25 11:25 Plt Count 133 L APTT Sodium 132 L Glucose 108 H Urine Ketones Trace H Urine Blood Trace H Urine Mucus Occasional H SARS-CoV-2 (PCR) 07/07/23 07/07/23 11:25 22:50 Plt Count APTT 82.1 H Sodium Glucose Urine Ketones Urine Blood Urine Mucus SARS-CoV-2 (PCR) Detected A - Diagnostic Findings Chest x-ray: image reviewed Assessment and Plan Assessment: Acute COVID infection, without evidence of COVID-pneumonia. Atrial fibrillation with rapid ventricular rate, possibly new onset, currently on a combination of Cardizem and heparin infusions. Acute hypoxemic respiratory failure, likely secondary to above Coronary artery disease, with recent history of PCI/stenting of the RCA History of CVA/hemorrhage, with residual left lower extremity weakness Gait abnormality History of frequent falls History of multiple sclerosis, doubt flare up History of obstructive sleep apnea Former tobacco smoker, quitting in 2020 Plan: Patient's medications, labs, chest x-ray reviewed Currently on 2 L/min nasal cannula Patient did test positive for COVID on arrival, likely incidental finding Start patient on IV Decadron daily. Continue Cardizem infusion per cardiology recommendation Continue IV heparin per protocol Fall precautions We will continue to follow I have personally seen and examined the patient, performed the documentation and the assessment and plan as written. Number of minutes spent on the visit:20 Time with Patient: Greater than 30
[2023-07-08] MEDS ORDERED: CLOPIDOGREL 75 MG TAB PO SCH (09:00)
[2023-07-08] MEDS: METOPROLOL SUCCINATE (ER) 25 MG TAB.ER.24H PO SCH (10:08)
[2023-07-08] MEDS: TAMSULOSIN 0.4 MG CAP.ER.24H PO SCH (10:08)
[2023-07-08] MEDS: ATORVASTATIN 40 MG TAB PO SCH (10:09)
[2023-07-08] MEDS: ASPIRIN 81 MG PO SCH (10:09)
[2023-07-08] MEDS: DULoxetine HCL 60 MG CAPSULE.DR PO SCH (10:09)
[2023-07-08] MEDS: DEXAMETHASONE SOD PHOSPHATE 10 MG/ML 1 ML VIAL IVP SCH (10:10)
[2023-07-08] MEDS: CHOLECALCIFEROL 25 MCG (1000 IU) TABLET PO SCH (10:18)
--- NOTE | 2023-07-08 11:53 | P.HPIM ---
History of Present Illness H&P Date: 07/08/23 Chief Complaint: Shortness of breath * 72-year-old patient with past medical history significant for coronary artery disease history of history of PCI, peripheral arterial disease, hyperlipidemia, history of multiple sclerosis, history of CVA with residual left lower extremity weakness, chronic smoker presented to the emergency department with complaints of fatigue, malaise, difficulty in breathing. Patient states he has had upper respiratory symptoms ongoing for approximately 10 days. Patient does complain of cough, sinus congestion, sore throat. Patient said he has been having excessive cough however nonproductive. * Workup initiated in ER included testing for influenza which was negative however patient tested positive for COVID. Patient was also noted to have atrial fibrillation with rapid ventricle response. Patient was started on IV heparin and Cardizem drip. And was started on 2 L of oxygen. Blood work reviewed in ER included serum sodium of 132Potassium 4.5 BUN 15 creatinine 0.71 blood glucose 108. CBC reviewed showed WBC 6.5 hemoglobin 15.3 platelet count of 133 INR of 1 * Patient was started on breathing treatments, started on Cardizem drip and IV heparin and admitted to medical floor with consultation from pulmonary m edicine and cardiology * Patient had a recent hospitalization and was discharged on 05/04/2023 admitted for strokelike symptoms and elevated troponin during that hospitalization was seen by cardiology REVIEW OF SYSTEMS: Cough, malaise, shortness of breath, fatigue, weakness CONSTITUTIONAL:Cough, malaise, shortness of breath, fatigue HEENT: No recent visual problems or hearing problems. Denied any sore throat. CARDIOVASCULAR: No chest pain, orthopnea, PND, no palpitations, no syncope. PULMONARY: Cough, malaise, shortness of breath, fatigue GASTROINTESTINAL: No diarrhea, no nausea, no vomiting, no abdominal pain. NEUROLOGICAL: No headaches, no weakness, no numbness. HEMATOLOGICAL: Denies any bleeding or petechiae. GENITOURINARY: Denies any burning micturition, frequency, or urgency. MUSCULOSKELETAL/RHEUMATOLOGICAL: Denies any joint pain, swelling, or any muscle pain. ENDOCRINE: Denies any polyuria or polydipsia. PHYSICAL EXAMINATION: GENERAL: The patient is alert and oriented x3, ill appearance, nasal cannula in place HEENT: Pupils are round and equally reacting to light. EOMI. CARDIOVASCULAR: S1 and S2 present. Tachycardia, irregular rhythm PULMONARY: Chest is clear to auscultation, no wheezing or crackles. ABDOMEN: Soft, nontender, nondistended, normoactive bowel sounds. No palpable organomegaly. MUSCULOSKELETAL: No joint swelling or deformity. EXTREMITIES: No cyanosis, clubbing, or pedal edema. NEUROLOGICAL: Gross neurological examination did not reveal any focal deficits. SKIN: No rashes. Assessment and plan * New onset atrial fibrillation with rapid ventricular response * Acute hypoxemia respiratory failure secondary to COVID-19 * COVID-19 viral infection * Coronary artery disease with previous history of PCI * History of CVA with residual left lower extremity weakness * History of recurrent falls * History of multiple sclerosis * In regards to new onset atrial fibrillation continue patient on IV Cardizem and anticoagulated with IV heparin. Continue telemonitoring cardiology consulted * In regards to acute hypoxemia, continue treatment for COVID-19 continue IV dexamethasone breathing treatments as needed wean off as tolerated pulmonary medicine consulted * In regards to history of CVA, continue aspirin, Plavix, Lipitor, metoprolol * In regards to recurrent falls will need physical therapy Occupational Therapy evaluation * CODE STATUS is full code Past Medical History Past Medical History: CVA/TIA, GERD/Reflux, Hyperlipidemia, Sleep Apnea/CPAP/BIPAP Additional Past Medical History / Comment(s): multiple sclerosis, PAD History of Any Multi-Drug Resistant Organisms: None Reported Past Surgical History: Appendectomy, Back Surgery, Bowel Resection, Hernia Repair, Orthopedic Surgery, Tonsillectomy Additional Past Surgical History / Comment(s): vascular bypass, left wrist x2 Past Anesthesia/Blood Transfusion Reactions: No Reported Reaction Past Psychological History: No Psychological Hx Reported Smoking Status: Former smoker Past Alcohol Use History: None Reported Past Drug Use History: None Reported Medications and Allergies Home Medications Medication Instructions Recorded Confirmed Type Tamsulosin HCl [Flomax] 0.8 mg PO DAILY 01/23/22 07/07/23 History Aspirin [Adult Low Dose Aspirin EC] 162 mg PO DAILY 04/27/23 07/07/23 History Cholecalciferol [Vitamin D3 (25 25 mcg PO DAILY 04/27/23 07/07/23 History Mcg = 1000 Iu)] Atorvastatin Calcium [Lipitor] 40 mg PO DAILY #90 tab 04/29/23 07/07/23 Rx Clopidogrel [Plavix] 75 mg PO DAILY #90 tablet 04/29/23 07/07/23 Rx DULoxetine HCL [Cymbalta] 60 mg PO DAILY 04/30/23 07/07/23 History Docusate [Colace] 100 mg PO DAILY 04/30/23 07/07/23 History HYDROcodone/APAP 10-325MG [[place] 1 tab PO TID 3 Days #9 tab 05/04/23 07/07/23 Rx 10-325] Metoprolol Succinate (ER) [Toprol 25 mg PO DAILY #30 tab 05/04/23 07/07/23 Rx XL] Allergies Allergy/AdvReac Type Severity Reaction Status Date / Time mold Allergy Cough, Verified 07/07/23 16:09 bronchitis, feverish, watery eyes, runny nose pollen extracts Allergy Cough, Verified 07/07/23 16:09 bronchitis, feverish, watery eyes, runny nose environmental Allergy Intermediate Cough, Uncoded 07/07/23 16:09 bronchitis, feverish, watery eyes, runny nose dust Allergy Cough, Uncoded 07/07/23 16:09 bronchitis, feverish, watery eyes, runny nose Physical Exam Vitals: Vital Signs Temp Pulse Pulse Resp BP BP Pulse Ox 07/08/23 04:00 98.5 F 95 19 122/65 98 07/08/23 00:00 98.1 F 80 19 114/59 97 07/07/23 23:35 89 22 100/68 96 07/07/23 22:35 95 17 94/63 100 07/07/23 22:00 83 10 L 113/97 07/07/23 19:00 92 15 105/78 07/07/23 18:00 96 20 106/69 07/07/23 17:00 87 14 106/73 96 07/07/23 16:00 122 H 7 L 101/68 99 07/07/23 14:45 122 H 16 113/73 97 07/07/23 13:38 133 H 16 120/79 94 L 07/07/23 12:42 98 F 112 H 14 102/17 07/07/23 10:58 97.7 F 120 H 20 116/68 97 Intake and Output 07/07/23 07/08/23 07/08/23 22:59 06:59 14:59 Intake Total 63.933 240 Output Total 300 Balance -236.067 240 Intake: Intake, IV Titration 63.933 Amount Heparin Sod,Pork in 0.45% 63.933 NaCl 25,000 unit In 0.45 % NaCl 1 250ml.bag @ 12 UNITS/KG/HR 7.893 mls/hr IV .Q24H [facility] Rx#: [id number] Oral 240 Output: Urine 300 Other: Voiding Method Urinal Weight 65.771 kg Results CBC & Chem 7: 07/07/23 11:25 07/07/23 11:25 Labs: Abnormal Lab Results - Last 24 Hours (Table) 07/07/23 07/07/23 07/07/23 Range/Units 11:25 11:25 11:25 Plt Count 133 L (150-450) k/uL APTT (22.0-30.0) sec Sodium 132 L (137-145) mmol/L Glucose 108 H (74-99) mg/dL Urine Ketones Trace H (Negative) Urine Blood Trace H (Negative) Urine Mucus Occasional H (None) /hpf SARS-CoV-2 (PCR) (Not Detectd) 07/07/23 07/07/23 Range/Units 11:25 22:50 Plt Count (150-450) k/uL APTT 82.1 H (22.0-30.0) sec Sodium (137-145) mmol/L Glucose (74-99) mg/dL Urine Ketones (Negative) Urine Blood (Negative) Urine Mucus (None) /hpf SARS-CoV-2 (PCR) Detected A (Not Detectd) Thrombosis Risk Factor Assmnt - Choose All That Apply Any of the Below Risk Factors Present?: Yes Each Risk Factor Represents 2 Points: Age 61-74 years Thrombosis Risk Factor Assessment Total Risk Factor Score: 2 Thrombosis Risk Factor Assessment Level: Low Risk
[2023-07-08] MEDS: APIXABAN 5 MG TAB PO SCH (12:11)
[2023-07-08] MEDS: METOPROLOL TARTRATE 50 MG TAB PO SCH (12:11)
--- NOTE | 2023-07-08 13:07 | P.CRDCN ---
History of Present Illness Consult date: 07/08/23 Consult reason: atrial fibrillation (With RVR) History of present illness: History of present illness: This is a 72-year-old female patient of Dr. Weems with past medical history of coronary disease status post stenting of the RCA, cardiomyopathy, hypertension, dyslipidemia, peripheral artery disease status post aortobifem, multiple sclerosis. We have been asked to evaluate the patient for A-fib. Patient presented to the hospital due to pain and weakness of the left lower extremity. She denies having any chest pain, palpitations, lightheadedness or dizziness. Patient has been started on heparin drip, Cardizem drip at 5 mg/h. Patient remains in atrial fibrillation with rate controlled. Patient is in isolation for COVID-19. Patient was last seen in the office on May 07, 2023. EKG atrial fibrillation at a rate of 126 bpm, moderate rate with nonspecific ST- T wave changes. Chest x-ray: Basilar atelectasis is favored over pneumonia. WBC 6.5, hemoglobin 15.3, blood count 133. Sodium 132, potassium 4.5, BUN 15 creatinine 0.71. Glucose 108. Phosphorus 2.8, magnesium 1.8. Liver function test are normal. Troponin negative x 1. C-reactive protein 1.2. Albumin 3.7. Urinalysis shows trace ketones and trace blood. Influenza A, influenza B, RSV not detected. COVID-19 detected. Home cardiac medications:Aspirin 162 mg daily, atorvastatin 40 mg daily, Plavix 95 mg daily, Toprol-XL 25 mg daily. Cardiac catheterization performed 04/28/2023 revealed critical disease involving the mid and proximal RCA status post PCI of the mid and proximal RCA Echocardiogram performed on 02/22/2023 revealed EF of 45%. Review Of Systems: At the time of my exam: CONSTITUTIONAL: Denies fever or chills. HEENT: Denies blurred vision, vision changes, or eye pain. Denies hemoptysis CARDIOVASCULAR: Denies chest pain. Denies orthopnea. Denies PND. Denies palpitations RESPIRATORY: Denies shortness of breath. GASTROINTESTINAL: Denies abdominal pain. Denies nausea or vomiting. HEMATOLOGIC: Denies bleeding disorders. GENITOURINARY: Denies any blood in urine. SKIN: Denies pruitis. Denies rash. Physical examination: Gen: This is a 72-year-old female in no acute respiratory distress. VS: reviewed blood pressure 105/69, heart rate 78, pulse ox 100% on room air. HEENT: Head is atraumatic, normocephalic. Pupils equal, round. Sclerae is anicteric. NECK: Supple. No JVD. LUNGS: Clear to auscultation. No wheezes or rhonchi. No intercostal retractions. HEART: Irregular rate and rhythm. No murmur. ABDOMEN: Soft No tenderness. EXTREMITIES: No pedal edema. No calf tenderness. NEUROLOGICAL: Patient is awake, alert and oriented x3. Assessment: New onset of A-fib with RVR, paroxysmal COVID-19 Left lower extremity weakness History of coronary artery disease status post stenting of the RCA Cardiomyopathy with known EF of 45% Hypertension Dyslipidemia Peripheral artery disease MS Plan: Resume patient's home cardiac medications with the following changes Discontinue aspirin Add Eliquis 5 mg twice daily and metoprolol tartrate 50 mg twice daily Discontinue Cardizem drip and heparin drip No need to repeat echocardiogram At the time of discharge, patient will go home on Plavix and Eliquis Further recommendations to follow based upon clinical course Thank you kindly for this consultation. Nurse practitioner note has been reviewed, I agree with documented findings and plan of care. Patient was seen and examined. Past Medical History Past Medical History: CVA/TIA, GERD/Reflux, Hyperlipidemia, Sleep Apnea/CPAP/BIPAP Additional Past Medical History / Comment(s): multiple sclerosis, PAD History of Any Multi-Drug Resistant Organisms: None Reported Past Surgical History: Appendectomy, Back Surgery, Bowel Resection, Hernia Repair, Orthopedic Surgery, Tonsillectomy Additional Past Surgical History / Comment(s): vascular bypass, left wrist x2 Past Anesthesia/Blood Transfusion Reactions: No Reported Reaction Past Psychological History: No Psychological Hx Reported Smoking Status: Former smoker Past Alcohol Use History: None Reported Past Drug Use History: None Reported Medications and Allergies Home Medications Medication Instructions Recorded Confirmed Type Tamsulosin HCl [Flomax] 0.8 mg PO DAILY 01/23/22 07/07/23 History Aspirin [Adult Low Dose Aspirin EC] 162 mg PO DAILY 04/27/23 07/07/23 History Cholecalciferol [Vitamin D3 (25 25 mcg PO DAILY 04/27/23 07/07/23 History Mcg = 1000 Iu)] Atorvastatin Calcium [Lipitor] 40 mg PO DAILY #90 tab 04/29/23 07/07/23 Rx Clopidogrel [Plavix] 75 mg PO DAILY #90 tablet 04/29/23 07/07/23 Rx DULoxetine HCL [Cymbalta] 60 mg PO DAILY 04/30/23 07/07/23 History Docusate [Colace] 100 mg PO DAILY 04/30/23 07/07/23 History HYDROcodone/APAP 10-325MG [[place] 1 tab PO TID 3 Days #9 tab 05/04/23 07/07/23 Rx 10-325] Metoprolol Succinate (ER) [Toprol 25 mg PO DAILY #30 tab 05/04/23 07/07/23 Rx XL] Allergies Allergy/AdvReac Type Severity Reaction Status Date / Time mold Allergy Cough, Verified 07/07/23 16:09 bronchitis, feverish, watery eyes, runny nose pollen extracts Allergy Cough, Verified 07/07/23 16:09 bronchitis, feverish, watery eyes, runny nose environmental Allergy Intermediate Cough, Uncoded 07/07/23 16:09 bronchitis, feverish, watery eyes, runny nose dust Allergy Cough, Uncoded 07/07/23 16:09 bronchitis, feverish, watery eyes, runny nose Physical Exam Vitals: Vital Signs Temp Pulse Pulse Resp BP BP Pulse Ox 07/08/23 04:00 98.5 F 95 19 122/65 98 07/08/23 00:00 98.1 F 80 19 114/59 97 07/07/23 23:35 89 22 100/68 96 07/07/23 22:35 95 17 94/63 100 07/07/23 22:00 83 10 L 113/97 07/07/23 19:00 92 15 105/78 07/07/23 18:00 96 20 106/69 07/07/23 17:00 87 14 106/73 96 07/07/23 16:00 122 H 7 L 101/68 99 07/07/23 14:45 122 H 16 113/73 97 07/07/23 13:38 133 H 16 120/79 94 L 07/07/23 12:42 98 F 112 H 14 102/17 07/07/23 10:58 97.7 F 120 H 20 116/68 97 Intake and Output 07/07/23 07/08/23 07/08/23 22:59 06:59 14:59 Intake Total 63.933 240 Output Total 300 Balance -236.067 240 Intake: Intake, IV Titration 63.933 Amount Heparin Sod,Pork in 0.45% 63.933 NaCl 25,000 unit In 0.45 % NaCl 1 250ml.bag @ 12 UNITS/KG/HR 7.893 mls/hr IV .Q24H [facility] Rx#: [id number] Oral 240 Output: Urine 300 Other: Voiding Method Urinal Weight 65.771 kg Results 07/07/23 11:25 07/07/23 11:25 Cardiac Enzymes 07/07/23 07/07/23 Range/Units 11:25 11:25 AST 30 (17-59) U/L Troponin I 0.013 (0.000-0.034) ng/mL Coagulation 07/07/23 07/07/23 Range/Units 11:25 22:50 PT 10.8 (10.0-12.5) sec APTT 25.2 82.1 H (22.0-30.0) sec CBC 07/07/23 Range/Units 11:25 WBC 6.5 (3.8-10.6) k/uL RBC 5.06 (4.30-5.90) m/uL Hgb 15.3 (13.0-17.5) gm/dL Hct 47.3 (39.0-53.0) % Plt Count 133 L (150-450) k/uL Comprehensive Metabolic Panel 07/07/23 Range/Units 11:25 Sodium 132 L (137-145) mmol/L Potassium 4.5 (3.5-5.1) mmol/L Chloride 103 (98-107) mmol/L Carbon Dioxide 22 (22-30) mmol/L BUN 15 (9-20) mg/dL Creatinine 0.71 (0.66-1.25) mg/dL Glucose 108 H (74-99) mg/dL Calcium 10.2 (8.4-10.2) mg/dL AST 30 (17-59) U/L ALT 13 (4-49) U/L Alkaline Phosphatase 105 (38-126) U/L Total Protein 6.5 (6.3-8.2) g/dL Albumin 3.7 (3.5-5.0) g/dL Current Medications Generic Name Dose Route Start Last Admin Trade Name Freq PRN Reason Stop Dose Admin Acetaminophen 650 mg 07/07/23 16:25 Acetaminophen Tab 325 Mg Tab PO Q4HR PRN Fever>101 Hydrocodone Bitart/Acetaminophen 1 each 07/07/23 15:15 Hydrocodone/Apap 5-325mg 1 Each Tab PO Q4HR PRN Moderate Pain (Scale 4 to 6) Hydrocodone Bitart/Acetaminophen 1 each 07/07/23 16:30 07/08/23 10:09 Hydrocodone/Apap 10-325mg 1 Each Tab PO 1 each TID ADARSH Administration Albuterol Sulfate 1 puff 07/08/23 03:58 Albuterol Hfa Inhaler INHALATION RT-QID PRN Shortness Of Breath Or Wheezing Apixaban 5 mg 07/08/23 10:30 Apixaban 5 Mg Tab PO BID [facility] Protocol Atorvastatin Calcium 40 mg 07/08/23 09:00 07/08/23 10:09 Atorvastatin 40 Mg Tab PO 40 mg DAILY ADARSH Administration Cholecalciferol 25 mcg 07/08/23 09:00 07/08/23 10:18 Cholecalciferol 25 Mcg (1000 Iu) Tablet PO 25 mcg DAILY ADARSH Administration Clopidogrel Bisulfate 75 mg 07/07/23 16:30 07/08/23 10:09 Clopidogrel 75 Mg Tab PO 75 mg DAILY ADARSH Administration Dexamethasone Sodium Phosphate 6 mg 07/08/23 09:00 07/08/23 10:10 Dexamethasone Sod Phosphate 10 Mg/Ml 1 Ml Vial IVP 6 mg DAILY ADARSH Administration Duloxetine HCl 60 mg 07/08/23 09:00 07/08/23 10:09 Duloxetine Hcl 60 Mg Capsule.Dr PO 60 mg DAILY ADARSH Administration Sodium Chloride 1,000 mls @ 75 mls/hr 07/07/23 15:15 07/08/23 10:07 Saline 0.9% IV 75 mls/hr .[id number] ADARSH Administration Metoprolol Tartrate 50 mg 07/08/23 10:30 Metoprolol Tartrate 50 Mg Tab PO BID ADARSH Naloxone HCl 0.2 mg 07/07/23 15:15 Naloxone 0.4 Mg/Ml 1 Ml Vial IV Q2M PRN Opioid Reversal Ondansetron HCl 4 mg 07/07/23 15:15 Ondansetron 4 Mg/2 Ml Vial IVP Q8HR PRN Nausea And Vomiting Tamsulosin HCl 0.8 mg 07/08/23 09:00 07/08/23 10:08 Tamsulosin 0.4 Mg Cap.Er.24h PO 0.8 mg DAILY ADARSH Administration Intake and Output 07/07/23 07/08/23 07/08/23 22:59 06:59 14:59 Intake Total 63.933 240 Output Total 300 Balance -236.067 240 Intake: Intake, IV Titration 63.933 Amount Heparin Sod,Pork in 0.45% 63.933 NaCl 25,000 unit In 0.45 % NaCl 1 250ml.bag @ 12 UNITS/KG/HR 7.893 mls/hr IV .Q24H ADARSH Rx#: [id number] Oral 240 Output: Urine 300 Other: Voiding Method Urinal Weight 65.771 kg 07/07/23 11:25 07/07/23 11:25
[2023-07-08] MEDS: diphenhydrAMINE 25 MG CAP PO PRN (21:36)
[2023-07-09 10:22] LABS: HCT 43.2 % (39.0-53.0); HGB 13.7 gm/dL (13.0-17.5); MCH 30.8 pg (25.0-35.0); MCHC 31.8 g/dL (31.0-37.0); MCV 96.9 fL (80.0-100.0); Mean Platelet Volume 8.1; Platelet Count 165 k/uL (150-450); RBC 4.46 m/uL (4.30-5.90); RDW 13.7 % (11.5-15.5); WBC 7.9 k/uL (3.8-10.6)
[2023-07-09 10:59] VITALS: RESP 18
[2023-07-09 11:10] LABS: African American GFR (CKD) >90 (>60 ml/min/1.73 sqM); Anion Gap 3 mmol/L; Blood Urea Nitrogen 15 mg/dL (9-20); C Reactive Protein <0.5 mg/dL (<1.0); Carbon Dioxide 25 mmol/L (22-30); Chloride 106 mmol/L (98-107); Glucose 97 mg/dL (74-99); Non-African American GFR(CKD) >90 (>60 ml/min/1.73 sqM); Potassium 4.5 mmol/L (3.5-5.1); Sodium 134 mmol/L (137-145)
--- NOTE | 2023-07-09 13:44 | P.PN ---
Subjective Progress Note Date: 07/09/23 Consult reason: atrial fibrillation (With RVR) History of present illness: This is a 72-year-old female patient of Dr. Weems with past medical history of co ronary disease status post stenting of the RCA, cardiomyopathy, hypertension, dyslipidemia, peripheral artery disease status post aortobifem, multiple sclerosis. We have been asked to evaluate the patient for A-fib. Patient presented to the hospital due to pain and weakness of the left lower extremity. She denies having any chest pain, palpitations, lightheadedness or dizziness. Patient has been started on heparin drip, Cardizem drip at 5 mg/h. Patient remains in atrial fibrillation with rate controlled. Patient is in isolation for COVID-19. Patient was last seen in the office on May 07, 2023. EKG atrial fibrillation at a rate of 126 bpm, moderate rate with nonspecific ST- T wave changes. Chest x-ray: Basilar atelectasis is favored over pneumonia. WBC 6.5, hemoglobin 15.3, blood count 133. Sodium 132, potassium 4.5, BUN 15 creatinine 0.71. Glucose 108. Phosphorus 2.8, magnesium 1.8. Liver function test are normal. Troponin negative x 1. C-reactive protein 1.2. Albumin 3.7. Urinalysis shows trace ketones and trace blood. Influenza A, influenza B, RSV not detected. COVID-19 detected. Home cardiac medications:Aspirin 162 mg daily, atorvastatin 40 mg daily, Plavix 95 mg daily, Toprol-XL 25 mg daily. Cardiac catheterization performed 04/28/2023 revealed critical disease involving the mid and proximal RCA status post PCI of the mid and proximal RCA Echocardiogram performed on 02/22/2023 revealed EF of 45%. 07/08 Patient remains in atrial fibrillation with rate in the 70s. She is off Cardizem drip and has been started on Eliquis. Blood pressure is 100% on 2 L nasal cannula. Repeat blood work reveals CBC normal. Sodium 134, potassium 4.5, creatinine 0.63. Physical examination: Gen: This is a 72-year-old female in no acute respiratory distress. VS: reviewed HEENT: Head is atraumatic, normocephalic. Pupils equal, round. Sclerae is anicteric. NECK: Supple. No JVD. LUNGS: Clear to auscultation. No wheezes or rhonchi. No intercostal retractions. HEART: Irregular rate and rhythm. No murmur. ABDOMEN: Soft No tenderness. EXTREMITIES: No pedal edema. No calf tenderness. NEUROLOGICAL: Patient is awake, alert and oriented x3. Assessment: New onset of A-fib with RVR, paroxysmal COVID-19 Left lower extremity weakness History of coronary artery disease status post stenting of the RCA Cardiomyopathy with known EF of 45% Hypertension Dyslipidemia Peripheral artery disease MS Plan: Continue patient's current cardiac medications At the time of discharge, patient will go home on Plavix and Eliquis Patient is cleared for discharge from cardiology and will follow-up with Dr. Weems in 1 week. Nurse practitioner note has been reviewed, I agree with documented findings and plan of care. Patient was seen and examined. Objective - Vital Signs Vital signs: Vital Signs Temp 97.9 F 07/09/23 04:07 Pulse 77 07/09/23 04:07 Resp 20 07/09/23 04:07 BP 94/65 07/09/23 04:07 Pulse Ox 96 07/09/23 04:07 FiO2 Intake & Output 07/08/23 07/09/23 07/09/23 18:59 06:59 18:59 Intake Total 590 Output Total 150 300 Balance 440 -300 Intake: Oral 590 Output: Urine 150 300 Other: Voiding Method Urinal Urinal # Voids 2 - Labs CBC & Chem 7: 07/09/23 09:33 07/09/23 09:33 Labs: Abnormal Lab Results - Last 24 Hours (Table) 07/08/23 07/08/23 Range/Units 09:22 09:22 APTT 49.0 H (22.0-30.0) sec C-Reactive Protein 1.2 H (<1.0) mg/dL
--- NOTE | 2023-07-09 15:18 | P.PN ---
Subjective Progress Note Date: 07/09/23 Principal diagnosis: Acute COVID-19 infection and acute hypoxic respiratory failure, multifactorial Patient is a 72-year-old white male with past medical history significant for CVA and residual left-sided lower extremity weakness, multiple sclerosis, hyperlipidemia, coronary artery disease with previous PCI/stent, PAD, former tobacco smoker, HERB, among other medical comorbidities. Patient presented to the emergency room yesterday morning with a chief complaint of increased lower extremity weakness and troubles ambulating. He has history of frequent falls. He has chronic left lower extremity weakness that is residual from a prior CVA. He also reports URI-like symptoms that started 1 to 2 weeks ago. Admits postnasal drip, cough, sore throat, and sinus pressure. He denies any significant shortness of breath. He has been coughing, mostly nonproductive. He denies any fevers. His recently had similar symptoms. He denies any pre- existing lung disease such as COPD or asthma. He is a former tobacco smoker, quitting in 2020. Denies any gastrointestinal symptoms such as nausea, vomiting, diarrhea. On arrival to the emergency room, he did test positive for COVID. Patient states that he has had COVID multiple times in the past. He also was found to be in atrial fibrillation with RVR. He was started on a low intensity heparin infusion per protocol. He was also started on a Cardizem infusion which is currently infusing at 5 mg/h. He is currently lying in bed, on 2 L/min nasal cannula, in no acute distress. Heart rate is currently better controlled, around 80 bpm. Blood pressure normotensive. He states that he does have history of A-fib, but this is not listed in his medical record and he is not on any chronic anticoagulation outpatient. He denies any heart palpitations, lightheadedness, syncopal events. Denies any chest pain. He did have a recent heart catheterization done 04/28/2023 and received PCI/stenting of the RCA x 2. Follow-up echocardiogram shows a preserved left ventricular ejection fraction of 55 to 60%. Chest x-ray done this admission shows basilar atelectasis, doubt pneumonia. CBC unremarkable. No leukocytosis. CMP also unremarkable. Normal saline is infusing at 75 mL/h. Troponin 0.013. Most recent APTT supratherapeutic at 82.1, heparin infusion was adjusted. Afebrile. Vital signs are stable. Today on 07/09/2023, patient remains on the cardiac floor, doing well, relatively asymptomatic, on 2 L nasal cannula with O2 saturation 93%, atrial fibrillation rate is under control mostly in the 70s, patient is off Cardizem drip and he was started on Eliquis. O2 saturation is 98 to 100% on 2 L, labs were reviewed.CBC is relatively normal basic metabolic profile is normal renal profile is normal pulmonary us the patient remains on bronchodilators and is also on Decadron 6 mg IV push daily IV fluids at 75 cc/h, I will clear the patient for discharge if cleared by cardiology. Patient could be seen on outpatient basis for follow-up Objective - Vital Signs Vital signs: Vital Signs Temp 97.4 F L 07/09/23 08:00 Pulse 75 07/09/23 08:00 Resp 18 07/09/23 08:00 BP 115/74 07/09/23 08:00 Pulse Ox 93 L 07/09/23 10:11 FiO2 Intake & Output 07/08/23 07/09/23 07/09/23 18:59 06:59 18:59 Intake Total 590 180 Output Total 150 300 Balance 440 -300 180 Intake: Oral 590 180 Output: Urine 150 300 Other: Voiding Method Urinal Urinal # Voids 2 1 - Exam General: Revealed a 75-year-old white male pleasant in no distress Skin: Skin is warm and dry and no rashes or lesions are noted. Eye: Pupils are equal, round and reactive to light, extra-ocular movements are intact; there is normal conjunctiva bilaterally. Ears, nose, mouth and throat: There are moist mucous membranes and no oral lesions. Neck: The neck is supple, there is no tenderness or JVD. Cardiovascular: There is a regular rate and rhythm. No murmur, rub or gallop is appreciated. Respiratory: Clear throughout no crackles rhonchi or wheezes Gastrointestinal: Soft, non-distended, non-tender abdomen without masses or organomegaly noted. There is no rebound or guarding present. Bowel sounds are unremarkable. Back: There is no tenderness to palpation in the midline. There is no obvious deformity. Musculoskeletal: Normal ROM, no tenderness, There is no pedal edema. There is no calf tenderness or swelling. No cords were appreciated. Neurological: CN II-XII intact, Cranial nerves III through XII are intact. Patient is concerned that he is being weak and he cannot walk Psychiatric: Cooperative, appropriate mood & affect, normal judgment. - Labs CBC & Chem 7: 07/09/23 09:33 07/09/23 09:33 Labs: Abnormal Lab Results - Last 24 Hours (Table) 07/09/23 Range/Units 09:33 Sodium 134 L (137-145) mmol/L Creatinine 0.63 L (0.66-1.25) mg/dL Assessment and Plan Assessment: Impression: Acute COVID infection, without evidence of COVID-pneumonia. Atrial fibrillation with rapid ventricular rate, presently under control with oral meds and is also on Eliquis Acute hypoxemic respiratory failure, likely secondary to above Coronary artery disease, with recent history of PCI/stenting of the RCA History of CVA/hemorrhage, with residual left lower extremity weakness Gait abnormality History of frequent falls History of multiple sclerosis, doubt flare up History of obstructive sleep apnea Former tobacco smoker, quitting in 2020 Recommendation: Titrate oxygen and possibly discontinue or arrange for home O2 if the patient requires home O2 Continue Decadron, can be done orally for few more days. Continue bronchodilators Continue COVID-19 cocktail patient does not have COVID-19 pneumonia Fall precautions Patient seems to be inclined to consider placement because of his frequent falls and unable to ambulate. Consider social work assistant evaluation. Will continue to follow if not discharged home. Time with Patient: Less than 30
--- NOTE | 2023-07-09 17:10 | P.PN ---
Subjective Progress Note Date: 07/09/23 * 72-year-old patient with past medical history significant for coronary artery disease history of history of PCI, peripheral arterial disease, hyperlipidemia, history of multiple sclerosis, history of CVA with residual left lower extremity weakness, chronic smoker presented to the emergency department with complaints of fatigue, malaise, difficulty in breathing. Patient states he has had upper respiratory symptoms ongoing for approximately 10 days. Patient does complain of cough, sinus congestion, sore throat. Patient said he has been having excessive cough however nonproductive. * Workup initiated in ER included testing for influenza which was negative however patient tested positive for COVID. Patient was also noted to have atrial fibrillation with rapid ventricle response. Patient was started on IV heparin and Cardizem drip. And was started on 2 L of oxygen. Blood work reviewed in ER included serum sodium of 132Potassium 4.5 BUN 15 creatinine 0.71 blood glucose 108. CBC reviewed showed WBC 6.5 hemoglobin 15.3 platelet count of 133 INR of 1 * Patient was started on breathing treatments, started on Cardizem drip and IV heparin and admitted to medical floor with consultation from pulmonary medicine and cardiology * Patient had a recent hospitalization and was discharged on 05/04/2023 admitted for strokelike symptoms and elevated troponin during that hospitalization was seen by cardiology Objective - Vital Signs Vital signs: Vital Signs Temp 97.4 F L 07/09/23 08:00 Pulse 75 07/09/23 08:00 Resp 18 07/09/23 08:00 BP 115/74 07/09/23 08:00 Pulse Ox 100 07/09/23 08:00 FiO2 Intake & Output 07/08/23 07/09/23 07/09/23 18:59 06:59 18:59 Intake Total 590 Output Total 150 300 Balance 440 -300 Intake: Oral 590 Output: Urine 150 300 Other: Voiding Method Urinal Urinal # Voids 2 1 - Exam GENERAL: The patient is alert and oriented x3, ill appearance, nasal cannula in place HEENT: Pupils are round and equally reacting to light. EOMI. CARDIOVASCULAR: S1 and S2 present. Tachycardia, irregular rhythm PULMONARY: Chest is clear to auscultation, no wheezing or crackles. ABDOMEN: Soft, nontender, nondistended, normoactive bowel sounds. No palpable organomegaly. MUSCULOSKELETAL: No joint swelling or deformity. EXTREMITIES: No cyanosis, clubbing, or pedal edema. NEUROLOGICAL: Gross neurological examination did not reveal any focal deficits. SKIN: No rashes - Labs CBC & Chem 7: 07/09/23 09:33 07/09/23 09:33 Labs: Abnormal Lab Results - Last 24 Hours (Table) 07/09/23 Range/Units 09:33 Sodium 134 L (137-145) mmol/L Creatinine 0.63 L (0.66-1.25) mg/dL Assessment and Plan Assessment: * New onset atrial fibrillation with rapid ventricular response * Acute hypoxemia respiratory failure secondary to COVID-19 * COVID-19 viral infection * Coronary artery disease with previous history of PCI * History of CVA with residual left lower extremity weakness * History of recurrent falls * History of multiple sclerosis * In regards to new onset atrial fibrillation continue patient on IV Cardizem and anticoagulated with IV heparin. Continue telemonitoring cardiology consulted * In regards to acute hypoxemia, continue treatment for COVID-19 continue IV dexamethasone breathing treatments as needed wean off as tolerated pulmonary medicine consulted * In regards to history of CVA, continue aspirin, Plavix, Lipitor, metoprolol * In regards to recurrent falls will need physical therapy Occupational Therapy evaluation * CODE STATUS is full code
[2023-07-10 08:27] VITALS: PULSE 89; TEMP 98.1
[2023-07-10 11:38] LABS: Basophils % (A) 0 %; Eosinophils % (A) 0 %; HCT 43.6 % (39.0-53.0); HGB 14.1 gm/dL (13.0-17.5); Lymphocytes # (A) 0.8 k/uL (1.0-4.8); Lymphocytes % (A) 6 %; MCHC 32.3 g/dL (31.0-37.0); Mean Platelet Volume 8.2; Monocytes # (A) 0.7 k/uL (0-1.0); Monocytes % (A) 5 %; Neutrophils # (A) 11.6 k/uL (1.3-7.7); Neutrophils % (A) 88 %; Platelet Count 164 k/uL (150-450); RBC 4.54 m/uL (4.30-5.90); RDW 13.9 % (11.5-15.5); WBC 13.2 k/uL (3.8-10.6)
[2023-07-10 11:46] LABS: African American GFR (CKD) >90 (>60 ml/min/1.73 sqM); Anion Gap 5 mmol/L; Blood Urea Nitrogen 15 mg/dL (9-20); Calcium 9.7 mg/dL (8.4-10.2); Carbon Dioxide 21 mmol/L (22-30); Chloride 107 mmol/L (98-107); Glucose 106 mg/dL (74-99); Non-African American GFR(CKD) >90 (>60 ml/min/1.73 sqM); Potassium 3.8 mmol/L (3.5-5.1); Sodium 133 mmol/L (137-145)
[2023-07-10 12:00] LABS: C Reactive Protein <0.5 mg/dL (<1.0)
[2023-07-10 13:09] VITALS: BP 122/65
--- NOTE | 2023-07-10 13:46 | P.PN ---
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 Patient presented to the emergency room yesterday morning with a chief complaint of increased lower extremity weakness and troubles ambulating. He has history of frequent falls. He has chronic left lower extremity weakness that is residual from a prior CVA. He also reports URI-like symptoms that started 1 to 2 weeks ago. Admits postnasal drip, cough, sore throat, and sinus pressure. He denies any significant shortness of breath. He has been coughing, mostly nonproductive. He denies any fevers. His recently had similar symptoms. He denies any pre- existing lung disease such as COPD or asthma. He is a former tobacco smoker, quitting in 2020. Denies any gastrointestinal symptoms such as nausea, vomiting, diarrhea. On arrival to the emergency room, he did test positive for COVID. Patient states that he has had COVID multiple times in the past. He also was found to be in atrial fibrillation with RVR. He was started on a low intensity heparin infusion per protocol. He was also started on a Cardizem infusion which is currently infusing at 5 mg/h. He is currently lying in bed, on 2 L/min nasal cannula, in no acute distress. Heart rate is currently better controlled, around 80 bpm. Blood pressure normotensive. He states that he does have history of A-fib, but this is not listed in his medical record and he is not on any chronic anticoagulation outpatient. He denies any heart palpitations, lightheadedness, syncopal events. Denies any chest pain. He did have a recent heart catheterization done 04/28/2023 and received PCI/stenting of the RCA x 2. Follow-up echocardiogram shows a preserved left ventricular ejection fraction of 55 to 60%. Chest x-ray done this admission shows basilar atelectasis, doubt pneumonia. CBC unremarkable. No leukocytosis. CMP also unremarkable. Normal saline is infusing at 75 mL/h. Troponin 0.013. Most recent APTT supratherapeutic at 82.1, heparin infusion was adjusted. Afebrile. Vital signs are stable. Today on 07/09/2023, patient remains on the cardiac floor, doing well, relatively asymptomatic, on 2 L nasal cannula with O2 saturation 93%, atrial fibrillation rate is under control mostly in the 70s, patient is off Cardizem drip and he was started on Eliquis. O2 saturation is 98 to 100% on 2 L, labs were reviewed.CBC is relatively normal basic metabolic profile is normal renal profile is normal pulmonary us the patient remains on bronchodilators and is also on Decadron 6 mg IV push daily IV fluids at 75 cc/h, I will clear the patient for discharge if cleared by cardiology. Patient could be seen on outpatient basis for follow-up Patient was evaluated today on 07/10/23, patient is now on room air with O2 saturation 95% patient is doing well, relatively asymptomatic, except generally weak, and the patient is hoping he could go to rehab as he cannot do much at home. He does not have the support at home to be able to ambulate freely.WBC count today 13.2 hemoglobin 14.1 basic metabolic profile is normal renal profile is normal, patient is recovering from COVID-19 infection, but no evidence of COVID-19 pneumonia Objective - Vital Signs Vital signs: Vital Signs Temp 98.1 F 07/10/23 08:18 Pulse 89 07/10/23 12:41 Resp 18 07/10/23 12:41 BP 122/65 07/10/23 12:41 Pulse Ox 95 07/10/23 12:41 FiO2 Intake & Output 07/09/23 07/10/23 07/10/23 18:59 06:59 18:59 Intake Total 360 118 Output Total 500 700 550 Balance -140 -700 -432 Intake: Oral 360 118 Output: Urine 500 700 550 Other: Voiding Method External Catheter External Catheter # Voids 1 2 - Exam General: Revealed a 75-year-old white male pleasant in no distress Skin: Skin is warm and dry and no rashes or lesions are noted. Eye: Pupils are equal, round and reactive to light, extra-ocular movements are intact; there is normal conjunctiva bilaterally. Ears, nose, mouth and throat: There are moist mucous membranes and no oral lesions. Neck: The neck is supple, there is no tenderness or JVD. Cardiovascular: There is a regular rate and rhythm. No murmur, rub or gallop is appreciated. Respiratory: Clear throughout no crackles rhonchi or wheezes Gastrointestinal: Soft, non-distended, non-tender abdomen without masses or organomegaly noted. There is no rebound or guarding present. Bowel sounds are unremarkable. Musculoskeletal: Normal ROM, no tenderness, There is no pedal edema. There is no calf tenderness or swelling. No cords were appreciated. Neurological: CN II-XII intact, Cranial nerves III through XII are intact. Patient is concerned that he is being weak and he cannot walk Psychiatric: Cooperative, appropriate mood & affect, normal judgment. - Labs CBC & Chem 7: 07/10/23 10:13 07/10/23 10:13 Labs: Abnormal Lab Results - Last 24 Hours (Table) 07/10/23 07/10/23 Range/Units 10:13 10:13 WBC 13.2 H (3.8-10.6) k/uL Neutrophils # 11.6 H (1.3-7.7) k/uL Lymphocytes # 0.8 L (1.0-4.8) k/uL Sodium 133 L (137-145) mmol/L Carbon Dioxide 21 L (22-30) mmol/L Glucose 106 H (74-99) mg/dL Assessment and Plan Assessment: Impression: Acute COVID infection, without evidence of COVID-pneumonia. Atrial fibrillation with rapid ventricular rate, presently under control with oral meds and is also on Eliquis Acute hypoxemic respiratory failure, likely secondary to above Coronary artery disease, with recent history of PCI/stenting of the RCA History of CVA/hemorrhage, with residual left lower extremity weakness Gait abnormality History of frequent falls History of multiple sclerosis, doubt flare up History of obstructive sleep apnea Former tobacco smoker, quitting in 2020 Recommendation: director of rehabilitative services to evaluate for possible placement Continue Decadron, can be done orally for few more days. Continue bronchodilators Continue COVID-19 cocktail patient does not have COVID-19 pneumonia Fall precautions Patient is requesting rehab placement because of his frequent falls and unable to ambulate. Consider social welfare research worker evaluation. Will continue to follow Time with Patient: Less than 30
== END 2023-07-10 15:00 | disposition home health service (06) | DRG 177 ==
LOC: EC 10:56 → 3SCARD 15:59
PROVIDERS: ADMIT Internal Medicine; ATTEND Internal Medicine
PROC: 8E0ZXY6 Isolation (ICD-10-PCS; principal; 2023-07-07)
DX: U07.1 COVID-19 (principal); J96.01 Acute respiratory failure with hypoxia; I42.9 Cardiomyopathy, unspecified; J98.11 Atelectasis; R53.1 Weakness; I48.0 Paroxysmal atrial fibrillation; E78.5 Hyperlipidemia, unspecified; G35 Multiple sclerosis; I69.344 Monoplegia of lower limb following cerebral infarction affecting left non-dominant side; I10 Essential (primary) hypertension; I73.9 Peripheral vascular disease, unspecified; J32.9 Chronic sinusitis, unspecified; G47.33 Obstructive sleep apnea (adult) (pediatric); Z79.01 Long term (current) use of anticoagulants; I25.10 Atherosclerotic heart disease of native coronary artery without angina pectoris; Z79.82 Long term (current) use of aspirin; Z95.5 Presence of coronary angioplasty implant and graft; Z87.891 Personal history of nicotine dependence; Z87.19 Personal history of other diseases of the digestive system; Z79.02 Long term (current) use of antithrombotics/antiplatelets; Z79.899 Other long term (current) drug therapy; Z91.81 History of falling
CPT/HCPCS: 36415; 71046; 80048; 80053; 81001; 83605; 83735; 84100; 84484; 85025; 85027; 85610; 85730; 86140; 87636; 93005; 96361; 96365; 96366; 96368; 96375; 99285

== ENCOUNTER 2023-09-18 10:24 | Emergency (ER) | payer BC, MEDICARE ==
--- NOTE | 2023-09-18 10:43 | ED ---
General Adult HPI - General Stated complaint: AMS Time Seen by Provider: 09/18/23 10:24 Source: patient, RN notes reviewed, old records reviewed - History of Present Illness Initial comments: This is a 73-year-old male who presents to the emergency department from [facility] they sent him in because he was altered mentally and this occurred about 45 minutes after giving [place] 10. Patient is alert and oriented x 4 currently he has no complaints. Patient denies any headache patient denies numbness weakness. Patient is chest pain difficult breathing shortness of breath. Patient is any abdominal pain patient has nausea vomiting diarrhea. Patient denies any recent fever chills or cough - Related Data Home Medications Medication Instructions Recorded Confirmed Tamsulosin HCl [Flomax] 0.8 mg PO DAILY 01/23/22 07/07/23 Cholecalciferol [Vitamin D3 (25 25 mcg PO DAILY 04/27/23 07/07/23 Mcg = 1000 Iu)] DULoxetine HCL [Cymbalta] 60 mg PO DAILY 04/30/23 07/07/23 Docusate [Colace] 100 mg PO DAILY 04/30/23 07/07/23 Previous Rx's Medication Instructions Recorded Atorvastatin Calcium [Lipitor] 40 mg PO DAILY #90 tab 04/29/23 Clopidogrel [Plavix] 75 mg PO DAILY #90 tablet 04/29/23 HYDROcodone/APAP 10-325MG [[place] 1 tab PO TID 3 Days #9 tab 05/04/23 10-325] Apixaban [Eliquis] 5 mg PO BID 30 Days #60 tab 07/10/23 Metoprolol Tartrate [Lopressor] 50 mg PO BID 30 Days #60 tab 07/10/23 Allergies Allergy/AdvReac Type Severity Reaction Status Date / Time mold Allergy Cough, Verified 07/07/23 16:09 bronchitis, feverish, watery eyes, runny nose pollen extracts Allergy Cough, Verified 07/07/23 16:09 bronchitis, feverish, watery eyes, runny nose environmental Allergy Intermediate Cough, Uncoded 07/07/23 16:09 bronchitis, feverish, watery eyes, runny nose dust Allergy Cough, Uncoded 07/07/23 16:09 bronchitis, feverish, watery eyes, runny nose Review of Systems ROS Statement: Those systems with pertinent positive or pertinent negative responses have been documented in the HPI. ROS Other: All systems not noted in ROS Statement are negative. Past Medical History Past Medical History: CVA/TIA, GERD/Reflux, Hyperlipidemia, Sleep Apnea/CPAP/BIPAP Additional Past Medical History / Comment(s): multiple sclerosis, PAD History of Any Multi-Drug Resistant Organisms: None Reported Past Surgical History: Appendectomy, Back Surgery, Bowel Resection, Hernia Repair, Orthopedic Surgery, Tonsillectomy Additional Past Surgical History / Comment(s): vascular bypass, left wrist x2 Past Anesthesia/Blood Transfusion Reactions: No Reported Reaction Past Psychological History: No Psychological Hx Reported Smoking Status: Former smoker Past Alcohol Use History: None Reported Past Drug Use History: None Reported General Exam - General Exam Comments Initial Comments: GENERAL: Patient is well-developed and well-nourished. Patient is nontoxic and well- hydrated and is in no acute distress. ENT: Neck is soft and supple. No significant lymphadenopathy is noted. Oropharynx is clear. Moist mucous membranes. Neck has full range of motion without eliciting any pain. EYES: The sclera were anicteric and conjunctiva were pink and moist. Extraocular movements were intact and pupils were equal round and reactive to light. Eyelids were unremarkable. PULMONARY: Unlabored respirations. Good breath sounds bilaterally. No audible rales rhonchi or wheezing was noted. CARDIOVASCULAR: There is a regular rate and rhythm without any murmurs gallops or rubs. ABDOMEN: Soft and nontender with normal bowel sounds. SKIN: Skin is clear with no lesions or rashes and otherwise unremarkable. NEUROLOGIC: Patient is alert and oriented x3. Cranial nerves II through XII are grossly intact. Motor and sensory are also intact. Normal speech, volume and content. Symmetrical smile. MUSCULOSKELETAL: Normal extremities with adequate strength and full range of motion. LYMPHATICS: No significant lymphadenopathy is noted PSYCHIATRIC: Normal psychiatric evaluation. Course Vital Signs 09/18/23 09/18/23 10:33 11:34 Temperature 97.9 F Pulse Rate 97 95 Respiratory 16 16 Rate Blood Pressure 99/59 92/70 O2 Sat by Pulse 97 95 Oximetry Medical Decision Making - Medical Decision Making EKG is interpreted by myself. EKG shows atrial fibrillation at 95 bpm QRS is 93 QT interval is 358 QTc is 411. Patient's EKG shows no ST segment ovation or depression Was pt. sent in by a medical professional or institution (, PA, VICE INVESTIGATOR, urgent care, hospital, or fdc...) When possible be specific @ -No Did you speak to anyone other than the patient for history (EMS, parent, family, police, friend...)? What history was obtained from this source @ -No Did you review nursing and triage notes (agree or disagree)? Why? @ -I reviewed and agree with nursing and triage notes Were old charts reviewed (outside hosp., previous admission, EMS record, old EKG, old radiological studies, urgent care reports/EKG's, [facility]dc records)? Report findings @ -No old charts were reviewed Differential Diagnosis (chest pain, altered mental status, abdominal pain women, abdominal pain men, vaginal bleeding, weakness, fever, dyspnea, syncope, headache, dizziness, GI bleed, back pain, seizure, CVA, palpatations, mental health, musculoskeletal)? @ -Differential Altered Mental Status: Hypoglycemia, DKA, hypercapnia, ETOH, overdose, CO poisoning, trauma, myxedema coma, HTN encephalopathy, infection, encephalitis, psychosis, intercranial hemorrhage, hepatic encephalopathy, meningitis, CVA, this is not meant to be an all-inclusive list EKG interpreted by me (3pts min.). @ -As above X-rays interpreted by me (1pt min.). @ -Chest x-ray shows no acute normality CT interpreted by me (1pt min.). @ -None done U/S interpreted by me (1pt. min.). @ -None done What testing was considered but not performed or refused? (CT, X-rays, U/S, labs)? Why? @ -None What meds were considered but not given or refused? Why? @ -None Did you discuss the management of the patient with other professionals (professionals i.e. , PA, VICE INVESTIGATOR, lab, RT, psych nurse, child protective services social worker, seat mender, teacher, corporate banking officer, case maker)? Give summary @ -No Was smoking cessation discussed for >3mins.? @ -No Was critical care preformed (if so, how long)? @ -No Were there social determinants of health that impacted care today? How? (Homelessness, low income, unemployed, alcoholism, drug addiction, transportation, low edu. Level, literacy, decrease access to med. care, nursing home, rehab)? @ -No Was there de-escalation of care discussed even if they declined (Discuss DNR or withdrawal of care, Hospice)? DNR status @ -No What co-morbidities impacted this encounter? (DM, HTN, Smoking, COPD, CAD, Cancer, CVA, ARF, Chemo, Hep., AIDS, mental health diagnosis, sleep apnea, morbid obesity)? @ -None Was patient admitted / discharged? Hospital course, mention meds given and route, prescriptions, significant lab abnormalities, going to OR and other pertinent info. @ -Patient was alert and oriented x 4 the whole time he was in the emergency department without complaints patient will be discharged back to the [facility] Undiagnosed new problem with uncertain prognosis? @ -No Drug Therapy requiring intensive monitoring for toxicity (Heparin, Nitro, Insulin, Cardizem)? @ -No Were any procedures done? @ -No Diagnosis/symptom? @ -Transient altered mental status Acute, or Chronic, or Acute on Chronic? @ -Acute Uncomplicated (without systemic symptoms) or Complicated (systemic symptoms)? @ -Complicated Side effects of treatment? @ -No Exacerbation, Progression, or Severe Exacerbation? @ -No Poses a threat to life or bodily function? How? (Chest pain, USA, MD, pneumonia, PE, COPD, DKA, ARF, appy, cholecystitis, CVA, Diverticulitis, Homicidal, Suicidal, threat to staff... and all critical care pts) @ -No - Lab Data Result diagrams: 09/18/23 10:44 09/18/23 10:44 Lab Results 09/18/23 09/18/23 09/18/23 Range/Units 10:44 10:44 10:44 WBC 7.6 (3.8-10.6) k/uL RBC 4.28 L (4.30-5.90) m/uL Hgb 13.6 (13.0-17.5) gm/dL Hct 40.5 (39.0-53.0) % MCV 94.6 (80.0-100.0) fL MCH 31.9 (25.0-35.0) pg MCHC 33.7 (31.0-37.0) g/dL RDW 14.8 (11.5-15.5) % Plt Count 133 L (150-450) k/uL MPV 8.0 Neutrophils % 74 % Lymphocytes % 12 % Monocytes % 9 % Eosinophils % 3 % Basophils % 0 % Neutrophils # 5.6 (1.3-7.7) k/uL Lymphocytes # 0.9 L (1.0-4.8) k/uL Monocytes # 0.7 (0-1.0) k/uL Eosinophils # 0.2 (0-0.7) k/uL Basophils # 0.0 (0-0.2) k/uL Sodium 133 L (137-145) mmol/L Potassium 4.4 (3.5-5.1) mmol/L Chloride 105 (98-107) mmol/L Carbon Dioxide 22 (22-30) mmol/L Anion Gap 6 mmol/L BUN 16 (9-20) mg/dL Creatinine 0.52 L (0.66-1.25) mg/dL Est GFR (CKD-EPI)AfAm >90 (>60 ml/min/1.73 sqM) Est GFR (CKD-EPI)NonAf >90 (>60 ml/min/1.73 sqM) Glucose 110 H (74-99) mg/dL Calcium 9.8 (8.4-10.2) mg/dL Total Bilirubin 0.8 (0.2-1.3) mg/dL AST 20 (17-59) U/L ALT 7 (4-49) U/L Alkaline Phosphatase 82 (38-126) U/L Troponin I <0.012 (0.000-0.034) ng/mL Total Protein 5.7 L (6.3-8.2) g/dL Albumin 3.1 L (3.5-5.0) g/dL Urine Color Urine Appearance (Clear) Urine pH (5.0-8.0) Ur Specific Emmons (1.001-1.035) Urine Protein (Negative) Urine Glucose (UA) (Negative) Urine Ketones (Negative) Urine Blood (Negative) Urine Nitrite (Negative) Urine Bilirubin (Negative) Urine Urobilinogen (<2.0) mg/dL Ur Leukocyte Esterase (Negative) 09/18/23 Range/Units 12:25 WBC (3.8-10.6) k/uL RBC (4.30-5.90) m/uL Hgb (13.0-17.5) gm/dL Hct (39.0-53.0) % MCV (80.0-100.0) fL MCH (25.0-35.0) pg MCHC (31.0-37.0) g/dL RDW (11.5-15.5) % Plt Count (150-450) k/uL MPV Neutrophils % % Lymphocytes % % Monocytes % % Eosinophils % % Basophils % % Neutrophils # (1.3-7.7) k/uL Lymphocytes # (1.0-4.8) k/uL Monocytes # (0-1.0) k/uL Eosinophils # (0-0.7) k/uL Basophils # (0-0.2) k/uL Sodium (137-145) mmol/L Potassium (3.5-5.1) mmol/L Chloride (98-107) mmol/L Carbon Dioxide (22-30) mmol/L Anion Gap mmol/L BUN (9-20) mg/dL Creatinine (0.66-1.25) mg/dL Est GFR (CKD-EPI)AfAm (>60 ml/min/1.73 sqM) Est GFR (CKD-EPI)NonAf (>60 ml/min/1.73 sqM) Glucose (74-99) mg/dL Calcium (8.4-10.2) mg/dL Total Bilirubin (0.2-1.3) mg/dL AST (17-59) U/L ALT (4-49) U/L Alkaline Phosphatase (38-126) U/L Troponin I (0.000-0.034) ng/mL Total Protein (6.3-8.2) g/dL Albumin (3.5-5.0) g/dL Urine Color Light Yellow Urine Appearance Clear (Clear) Urine pH 6.5 (5.0-8.0) Ur Specific Emmons 1.016 (1.001-1.035) Urine Protein Negative (Negative) Urine Glucose (UA) Negative (Negative) Urine Ketones Negative (Negative) Urine Blood Negative (Negative) Urine Nitrite Negative (Negative) Urine Bilirubin Negative (Negative) Urine Urobilinogen <2.0 (<2.0) mg/dL Ur Leukocyte Esterase Negative (Negative) Disposition Clinical Impression: Altered mental status Disposition: HOME SELF-CARE Condition: Good Instructions (If sedation given, give patient instructions): Altered Mental Status (ED) Additional Instructions: Patient should consider reducing the amount of [place] is taken. Is patient prescribed a controlled substance at d/c from ED?: No Referrals: James Jeffrey MD [Primary Care Provider] - 1-2 days Time of Disposition: 12:42
[2023-09-18 10:45] VITALS: RESP 16
[2023-09-18] MEDS: SODIUM CHLORIDE 0.9% 500 ML 500 ML IV ONE (11:00)
--- NOTE | 2023-09-18 11:05 | XR ---
EXAMINATION TYPE: XR chest 1V portable DATE OF EXAM: 09/18/2023 10:52 AM CLINICAL INDICATION:Male, 73 years old with history of altered mental status; COMPARISON: Chest radiographs from 07/07/2023 TECHNIQUE: XR chest 1V portable Frontal view of the chest. FINDINGS: Lungs/Pleura: There is no evidence of pleural effusion, focal consolidation, or pneumothorax. Pulmonary vascularity: Unremarkable. Heart/mediastinum: Cardiomediastinal silhouette is unremarkable. Musculoskeletal: No acute osseous pathology. IMPRESSION: 1. No acute cardiopulmonary disease process. 2. COPD changes.
[2023-09-18 11:07] LABS: Basophils % (A) 0 %; Eosinophils # (A) 0.2 k/uL (0-0.7); Eosinophils % (A) 3 %; HCT 40.5 % (39.0-53.0); HGB 13.6 gm/dL (13.0-17.5); Lymphocytes # (A) 0.9 k/uL (1.0-4.8); Lymphocytes % (A) 12 %; MCH 31.9 pg (25.0-35.0); MCHC 33.7 g/dL (31.0-37.0); MCV 94.6 fL (80.0-100.0); Monocytes # (A) 0.7 k/uL (0-1.0); Monocytes % (A) 9 %; Neutrophils # (A) 5.6 k/uL (1.3-7.7); Neutrophils % (A) 74 %; Platelet Count 133 k/uL (150-450); RBC 4.28 m/uL (4.30-5.90); RDW 14.8 % (11.5-15.5); WBC 7.6 k/uL (3.8-10.6)
[2023-09-18 11:13] LABS: ALT 7 U/L (4-49); AST 20 U/L (17-59); African American GFR (CKD) >90 (>60 ml/min/1.73 sqM); Albumin 3.1 g/dL (3.5-5.0); Alkaline Phosphatase 82 U/L (38-126); Anion Gap 6 mmol/L; Blood Urea Nitrogen 16 mg/dL (9-20); Calcium 9.8 mg/dL (8.4-10.2); Carbon Dioxide 22 mmol/L (22-30); Chloride 105 mmol/L (98-107); Glucose 110 mg/dL (74-99); Non-African American GFR(CKD) >90 (>60 ml/min/1.73 sqM); Potassium 4.4 mmol/L (3.5-5.1); Sodium 133 mmol/L (137-145); Total Bilirubin 0.8 mg/dL (0.2-1.3); Total Protein 5.7 g/dL (6.3-8.2)
[2023-09-18 12:32] LABS: Appearance,Urine Clear (Clear); Bilirubin,Urine Negative (Negative); Blood,Urine Negative (Negative); Color,Urine Light Yellow; Glucose,Urine (UA) Negative (Negative); Ketones,Urine Negative (Negative); Leukocyte Esterase,Urine Negative (Negative); Nitrite,Urine Negative (Negative); PH, Urine 6.5 (5.0-8.0); Protein,Urine Negative (Negative); Specific Gravity,Urine 1.016 (1.001-1.035); Urobilinogen,Urine <2.0 mg/dL (<2.0)
[2023-09-18 12:47] LABS: Amphetamine Screen,Urine Not Detected (NotDetected); Barbiturate Screen,Urine Not Detected (NotDetected); Benzodiazepines Screen,Urine Detected (NotDetected); Cocaine Screen,Urine Not Detected (NotDetected); Methadone Screen, Urine Not Detected (NotDetected); Opiate Screen,Urine Detected (NotDetected); Oxycodone Screen, Urine Not Detected (NotDetected); Phencyclidine Screen,Urine Not Detected (NotDetected); Tricyclic Antidepressant,Urine Not Detected (NotDetected); Urn Cannabinoid Scrn Not Detected (NotDetected)
[2023-09-18 13:08] VITALS: BP 98/62; PULSE 98; TEMP 97.8
== END 2023-09-18 13:13 | disposition home or self-care (01) ==
LOC: EC 10:24
DX: R41.82 Altered mental status, unspecified (principal); I48.91 Unspecified atrial fibrillation; Z79.01 Long term (current) use of anticoagulants; Z91.09 Other allergy status, other than to drugs and biological substances; Z91.048 Other nonmedicinal substance allergy status; Z87.891 Personal history of nicotine dependence; Z86.73 Personal history of transient ischemic attack (TIA), and cerebral infarction without residual deficits
CPT/HCPCS: 36415; 51701; 71045; 80053; 80306; 81003; 84484; 85025; 93005; 96360; 99285